=== PATIENT | male | born 1950 | race Caucasian/White ===

== ENCOUNTER 2017-03-30 11:28 | Inpatient (IN) | payer OTHER ==
[~2017-03-30] VITALS: Ht 157.5 cm; Wt 57.6 kg
[2017-03-30] VITALS (13 sets, daily range): BP systolic 146–200; BP diastolic 66–99
[~2017-03-30 11:28] MED LIST: PT DOES NOT KNOW MED; [UNRECOGNIZED DRUG - REMARK]
--- NOTE | 2017-03-30 12:15 | NUR ---
PT PRESENTS TO ER W/C/O YEU LE EDEMA. PT STATES HE WENT ON VACATION LAST MONTH AND LOST HIS HTN AND DM MEDS AND HAS NOT TAKEN THEM IN 3 WEEKS. HX HTN, DM, ESRD. PT STATES HE IS NOT ON DIALYSIS. DENIES N/V/D; SKIN IS PINK/WARM/DRY; AAOX4 WITH EVEN AND STEADY GAIT; LUNGS CLEAR BL; HR EVEN AND REGULAR; PT DENIES ANY FEVER, CP, SOB, OR COUGH AT THIS TIME; PATIENT STATES PAIN OF 0/10 AT THIS TIME; VSS; PATIENT POSITIONED FOR COMFORT; HOB ELEVATED; BEDRAILS UP X2; BED DOWN. ER MD MADE AWARE OF PT STATUS.
[2017-03-30] MEDS ORDERED: VANCOMYCIN PER PHARMACY MC PRN ×2 (12:20→14:10)
[2017-03-30] MEDS ORDERED: VANCOMYCIN 1GM/DEXT 5% PREMIX 200 ML IV ONE (12:20)
--- NOTE | 2017-03-30 12:20 | NUR ---
BILAT UPPER AND LOWER EXTREMITIES RESTRAINT WERE APPLIED;PT IS AGGRESSIVE;
[2017-03-30 12:40] LABS: MEAN CORPUSCULAR HEMOGLOBIN 29 pg (27-31); MEAN CORPUSCULAR HGB CONC 33 g/dL (33-37); MEAN CORPUSCULAR VOLUME 87 fL (80-94); PLATELET COUNT (AUTO) 458 K/uL (140-450); RED BLOOD CELL COUNT(AUTO) 2.31 MIL/uL (4.20-6.10); RED CELL DISTRIBUTION WIDTH 12.4 % (11.6-13.7); WHITE BLOOD COUNT (AUTO) 14.1 K/uL (4.8-10.8)
[2017-03-30 12:47] LABS: HEMATOCRIT 20.1 % (36-52); HEMOGLOBIN 6.7 g/dL (12.0-18.0)
[2017-03-30 12:52] LABS: EOSINOPHILS % (MANUAL) 2 % (0-4); LYMPHOCYTES % (MANUAL) 10 % (20-46); MONOCYTES % (MANUAL) 4 % (5-12)
[2017-03-30 12:53] LABS: CARBON DIOXIDE 19.7 mmol/L (21-32); POTASSIUM 5.7 mmol/L (3.5-5.1); TOTAL BILIRUBIN 0.2 mg/dL (0.0-1.0)
[2017-03-30 12:56] LABS: PROTHROMBIN TIME 11.2 secs (10.8-13.4)
[2017-03-30 13:14] LABS: CREATININE 5.4 mg/dL (0.7-1.3)
--- NOTE | 2017-03-30 13:15 | NUR ---
PT RESTING ON BED;SAFETY MEASURES DONE;ONE ON MONITORING DONE;ALL MONITORS IN PLACED;
[2017-03-30] MEDS ORDERED: SODIUM POLYSTYRENE 15 GM/60 ML UDBTL PO ONE (13:20)
[2017-03-30] MEDS ORDERED: MORPHINE SULFATE 2 MG/ML SYR IVP PRN (13:50)
[2017-03-30] MEDS ORDERED: ONDANSETRON 4 MG/2 ML VIAL IVP PRN (13:50)
[2017-03-30] MEDS ORDERED: LORazepam 2 MG/ML VIAL IVP PRN (13:50)
--- NOTE | 2017-03-30 14:22 | NUR ---
Patient will be admitted to care of DR VERDUGO. Admited to M/S. Will go to room 121A. Belongings list completed. Report to LEW HERNADEZ.
--- NOTE | 2017-03-30 14:30 | NUR ---
1430: END TIME FOR VANOMYCIN/DEXTROSE, PT ADMITTED
--- NOTE | 2017-03-30 14:45 | NUR ---
PT ARRIVED ON UNIT IN [facility].
--- NOTE | 2017-03-30 15:44 | NUR ---
WOUND CARE EVALUATION NOTES: REASON FOR EVALUATION: BLE WOUNDS COMPLETE SKIN ASSESSMENT DONE ON THIS 66 Y/O MALE PATIENT FROM HOME TO [facility], WITH INITIAL DIAGNOSIS OF BLE EDEMA. PAST MEDICAL HISTORY INCLUDE DM, DIABETIC NEUROPATHY, HTN AND ESRD. ALL ABOVE INFORMATION WAS OBTAINED FROM PT AND THE ADMISSION H&P. LABS ARE WBC 14.1, H/H 6.7/20.1, GLUCOSE 225, ALBUMIN 2.0 CURRENT MEDS INCLUDE VANCOMYCIN, ENOXAPARIN, MORPHINE SULFATE AND ATIVAN. PATIENT IS AWAKE, ALERT, AND ABLE TO FOLLOW COMMANDS. SKIN WARM TO TOUCH WNL, SHORT FUNGAL LIKE TOENAILS, EDEMA TO RIGHT FOOT,NO HAIR GROWTH AND BILATERAL PEDAL PULSES PRESENT.PLAN OF CARE DISCUSSED WITH PT AND PRIMARY NURSE. PT ABLE TO VERBALIZE UNDERSTANDING. INTEGUMENTARY: BLE- DRYNESS, MULTIPLES OLD HEALED SCARS WITH SKIN INTACT LEFT GREAT TOE PLANTAR UN-STAGEABLE DIABETIC ULCER, HARD BROWN ESCHAR TISSUE 5X6CM, DEPTH UTD PW PALE RIGHT FOOT ERYTHEMA, WARM TO TOUCH DRY THIN SKIN RIGHT 5TH METATARSAL MEDIAL SIDE SMALL LACERATION UNABLE TO MEASURE DUE TO LOCATION RECOMMENDATIONS: -SUPERVISOR CORDUROY CUTTING CONSULT, POSSIBLE DEBRIDEMENT TO LEFT PLANTAR GREAT TOE -VENOUS DOPPLER U/S -CLEANSE LEFT PLANTAR GREAT TOE WOUND WITH NS, PAT DRY, PAINT WITH BETADINE SOLUTION QD AND PIPE LINE WALKER -CLEAN RIGHT 5TH METATARSAL WITH NS. PAT DRY, PAINT WITH BETADINE SOLUTION QD AND ALEX -APPLY HYDRAGUARD TO BLE QD AND PIPE LINE WALKER -TURN AND REPOSITION PATIENT Q2H -ASSESS AND MONITOR SKIN CONDITION DURING POSITION CHANGE, PLEASE PAY ATTENTION TO BLE AND HEELS -OFFLOAD BILATERAL HEELS BY PLACING PILLOWS UNDER CALVES AT ALL TIMES, UNLESS OTHERWISE CONTRAINDICATED -PRESSURE REDISTRIBUTION SURFACE THERAPY -KEEP SKIN CLEAN AND DRY AT ALL TIMES. -RD CONSULT RECOMMENDATIONS DISCUSSED WITH PRIMARY RN WILL FOLLOW UP PATIENT Q 7 -10 DAYS AND PRN. PLEASE CONTACT WOUND CARE NURSE FOR ANY CONCERNS AND CHANGES IN WOUND CONDITION
--- NOTE | 2017-03-30 16:00 | NUR ---
RECEIVED PT REPORT FROM RICKY CHARGE NURSE. PT IS AAOX4 AND SHOWS NO S/S OF ACUTE DISTRESS ON ROOM AIR. IV NOTED ON THE R FA 20 G SL. LBM 03/30/17 AM. PT DENIES PAIN. ON MEDICAL SURGICAL. PT HAS NOTED BILATERAL LOWER EXTREMITY EDEMA, RIGHT FOOT ERYTHEMA/DISCOLORATION, AND LEFT FOOT TOE PLANTAR WITH BROWN DISCOLORATION. PT AND FAMILY MEMBER WERE EXPLAINED POC FOR TODAY, THEY BOTH VERBALIZED UNDERSTANDING. PT FALL RISK PROTOCOL WAS INITIATED. PT HAS CANE AT BEDSIDE. THE BED IS LOWERED WITH CALL LIGHT WITHIN REACH.
--- NOTE | 2017-03-30 16:10 | NUR ---
PAGED DR VERDUGO REGARDING HIGH BP CHARTED. WILL AWAIT CALL BACK.
--- NOTE | 2017-03-30 16:30 | NUR ---
PAGED DR VERDUGO REGARDING HIGH BP 197/91. WILL AWAIT CALL BACK.
[2017-03-30] MEDS ORDERED: DEXTROSE 50% 50 ML SYR IVP PRN (16:45)
[2017-03-30] MEDS ORDERED: MECLIZINE 25 MG TAB PO PRN (16:45)
[2017-03-30] MEDS ORDERED: traMADol 50 MG TAB PO PRN (16:45)
--- NOTE | 2017-03-30 16:55 | NUR ---
PAGED DR VERDUGO REGARDING HIGH BP 191/90. WILL AWAIT CALL BACK.
--- NOTE | 2017-03-30 17:00 | NUR ---
DR VERDUGO ON UNIT SEEING PT. MADE AWARE OF BP.
[2017-03-30] MEDS ORDERED: FUROSEMIDE 100 MG/10 ML VIAL IV SCH (17:30)
--- NOTE | 2017-03-30 18:00 | NUR ---
DR VERDUGO ORDERED LASIX 60 MG IVP FOR BP. BEFORE ADMINISTERING BP IS 200/95 HR 71 AND O2 SAT% 100.
--- NOTE | 2017-03-30 18:20 | NUR ---
PT BP IS 182/99 HR 73. PT DENIES CHEST PAIN AND SOB. WILL CONTINUE TO MONITOR.
[2017-03-30] MEDS ORDERED: hydrALAZINE 20 MG/ML VIAL IVP PRN (18:25)
--- NOTE | 2017-03-30 19:15 | NUR ---
PT BP IS 180/81 HR 73. PT IS ASYMPTOMATIC, DENIES CHEST PAIN AND SOB. PT REPORT WAS GIVEN AT BEDSIDE TO NIGHT NURSE. CHANDAN HACKETT AWARE OF HIGH BP AND STATES SHE WILL PAGE DR VERDUGO ABOUT BP STILL CONTINUOS TO BE HIGH AFTER GIVING LASIX 60 MG IVP AT 1750 AND HYDRALAZINE 10 MG IVP AT 1840. BP HAS BEEN CHECKED EVERY 15-20 MIN. RICKY HACKETT IS AWARE BLOOD TRANSFUSION WAS NOT GIVEN DUE TO HIGH BLOOD PRESSURE. ENDORSED PT IN STABLE CONDITION TO CHANDAN HACKETT.
[2017-03-30 19:19] LABS: CHOL/HDL RATIO 4.3 (1-4.5)
--- NOTE | 2017-03-30 19:20 | NUR ---
RECEIVED REPORT FROM DAY SHIFT RN, PATIENT RESTING IN BED, NO S/S OF ACUTE DISTRESS NOTED, RESPIRATION EVEN AND UNLABORED, NOTED BP AT THIS TIME IS 174/78, HR 71, DAY SHIFT NURSE STATED PATIENT RECEIVED LASIX 60MG AT 1757 AND HYDRALAZINE AT 1840, CHARGE NURSE IS AWARE OF PATIENT'S BP AND STATED TO CONTINUE MONITOR THE BP AND IF SBP IS STILL OVER 170 AFTER AN HOUR, THEN PAGE DR. VERDUGO. PATIENT IS AWAKE ALERT ORIENTED X4, DENIES PAIN AT THIS TIME. PLAN OF CARE DISCUSSED, PATIENT VERBALIZED UNDERSTANDING, CALL LIGHT WITHIN REACH, SAFETY MEASURE ENSURED ,WILL CONTINUE TO MONITOR
--- NOTE | 2017-03-30 19:58 | NUR ---
BP 168/88, HR 70, NO S/S OF DISTRESS, PATIENT DENIES PAIN. WILL CONTINUE TO MONITOR.
[2017-03-30] MEDS: BLOOD GLUCOSE MONITORING 1 DEV DEV FS SCH (20:17)
[2017-03-30] MEDS: SIMVASTATIN 40 MG TAB PO SCH (20:21)
[2017-03-30] MEDS: INSULIN LISPRO SLIDING SCALE 100 UNITS/ML VIAL SUBQ PRN (20:24)
[2017-03-30] MEDS ORDERED: hydrOXYzine HCL 10 MG TAB PO SCH (21:00)
[2017-03-30] MEDS ORDERED: METOPROLOL 25 MG TAB PO SCH (21:02)
--- NOTE | 2017-03-30 21:10 | NUR ---
PAGED DR VERDUGO, DR TURK EMPLOYEE'S REPRESENTATIVE. INFORMED DR. TURK PATIENT'S BP 182/91, HR 71 AT 2039, RECEIVED ORDER OF LOPRESSOR 25MG PO BID, START THE FIRST DOSE TONIGHT. HYDRALAZINE 20MG PRN SBP ABOVE 160, IVP, Q8H, AND GIVE ADDITIONAL 10MG IVP IF SBP ABOVE 160 FOR NOW. ORDER READ BACK, DR. TURK CONFIRMED.
--- NOTE | 2017-03-30 21:20 | NUR ---
PAGED DR. HERNANDEZ, CALLED BACK AT 2104, INFORMED DR. HERNANDEZ THAT PATIENT'S BP 182/91 AND HR 71 AT 2039, IF I SHOULD GIVE THE 2 UNITS OF PRBC ORDERED, DR. HERNANDEZ STATED," I AM ON MY WAY TO THE HOSPITAL, I WILL CHECK THE PATIENT, WAIT UNTIL I GET THERE."
--- NOTE | 2017-03-30 21:31 | NUR ---
DR. HERNANDEZ IS HERE AND EXAMINED THE PATIENT.
--- NOTE | 2017-03-30 21:53 | NUR ---
DR. HERNANDEZ SAID," OKAY TO GIVE 2 UNITS OF PRBC, AND GIVE CLONIDINE 0.1MG PO ONCE FOR ELEVATED BLOOD PRESSURE."
[2017-03-30] MEDS ORDERED: cloNIDine 0.1 MG TAB PO SCH (21:55)
--- NOTE | 2017-03-30 22:03 | NUR ---
BP 168/84, HR 70, CLONIDINE 0.1MG PO GIVEN, WILL CONTINUE TO MONITOR.
--- NOTE | 2017-03-30 22:55 | NUR ---
T 97.9, BP 160/75, HR 69, RR 17, DENIES PAIN
--- NOTE | 2017-03-30 23:10 | NUR ---
1ST UNIT OF PRBC START, WILL CONTINUE TO MONITOR VITAL SIGNS PER HOSPITAL PROTOCOL, AND EDUCATED PATIENT TO CALL NURSE IF HE FEELS SOB, FLANK PAIN, OR CHILL. PATIENT VERBALIZED UNDERSTANDING, WILL CONTINUE TO MONITOR.
--- NOTE | 2017-03-30 23:53 | NUR ---
JUSTIN EXAMINED PATIENT AT THE BEDSIDE.
[2017-03-31] VITALS (9 sets, daily range): BP systolic 133–177; BP diastolic 64–93
--- NOTE | 2017-03-31 02:57 | NUR ---
1ST UNIT OF PRBC FINISHED AT 2039, VITAL SIGNS T 98.2 BP 165/71, HR 63 RR 18 O2SAT 98%, PATIENT CHANNING PAIN. WILL GIVE HYDRALAZINE 20MG PRN IVP FOR SBP ABOVE 160 ORDERED. Addendum: 03/31/17 at 0576 by Virgilio Akbar RN 1ST UNIT OF PRBC FINISHED AT 239
[2017-03-31] MEDS: hydrALAZINE 20 MG/ML VIAL IVP PRN (03:01)
--- NOTE | 2017-03-31 03:25 | NUR ---
T 98.3, BP 129/60, HR 65, RR 17, O2SAT 98%, DENIES PAIN.
--- NOTE | 2017-03-31 03:45 | NUR ---
STARTED THE SECOND UNIT OF PRBC AT 0340, WILL CONTINUE MONITOR VITAL SIGNS PER HOSPITAL PROTOCOL. EDUCATED PATIENT TO INFORM NURSE IF HE FEELS SOB, FLANK PAIN, OR CHILL. PATIENT VERBALIZED UNDERSTANDING.
[2017-03-31] MEDS: cloNIDine 0.1 MG TAB PO SCH ×3 (05:30→20:34)
[2017-03-31] MEDS: BLOOD GLUCOSE MONITORING 1 DEV DEV FS SCH ×4 (06:36→20:42)
[2017-03-31] MEDS: INSULIN LISPRO SLIDING SCALE 100 UNITS/ML VIAL SUBQ PRN ×3 (06:37→20:40)
--- NOTE | 2017-03-31 06:59 | NUR ---
THE SECOND UNIT OF PRBC FINISHED AT 0650, VITAL SIGNS T 98.2, BP 154/73, HR 64, RR 19, O2SAT 98%, DENIES PAIN.
--- NOTE | 2017-03-31 07:15 | NUR ---
ENDORSED PLAN OF CARE TO DAY RN. PATIENT IS IN STABLE CONDITION. NO S/S OF DISTRESS, RESPIRATION EVEN AND UNLABORED.
--- NOTE | 2017-03-31 07:20 | NUR ---
RECEIVED REPORT FROM AIRCRAFT ARMORER NURSE, PT IS RESTING IN BED A/OX4, AMBULATES WITH ASSIST, IV IS ON THE RIGHT FA, PATENT, INTACT, FLUSHING WELL, PATIENT'S HAS BILATERAL +1 PITTING EDEMA, LEFT BIG TOE SCAB AT THE BOTTOM PLANTAR SIDE, NO S/S OF RESPIRATORY DISTRESS OR DISCOMFORT NOTED, DISCUSSED PLAN OF CARE WITH PT, PT VERBALIZED UNDERSTANDING, SAFETY/FALL PRECAUTIONS ARE IN PLACE, CALL LIGHT WITHIN REACH, WILL CONTINUE TO MONITOR.
[2017-03-31] MEDS: FERROUS SULFATE 325 MG TABEC PO SCH (08:00)
[2017-03-31] MEDS: METOPROLOL 25 MG TAB PO SCH ×2 (08:52→20:35)
[2017-03-31] MEDS: amLODIPine 5 MG TAB PO SCH (08:52)
[2017-03-31] MEDS ORDERED: ENOXAPARIN 30 MG/0.3 ML SYR SUBQ SCH (09:00)
[2017-03-31] MEDS ORDERED: GLIMEPIRIDE 2 MG TAB PO SCH (09:00)
[2017-03-31 09:36] LABS: HEMATOCRIT 24.2 % (36-52); MEAN CORPUSCULAR HEMOGLOBIN 28 pg (27-31); MEAN CORPUSCULAR HGB CONC 33 g/dL (33-37); MEAN CORPUSCULAR VOLUME 86 fL (80-94); PLATELET COUNT (AUTO) 348 K/uL (140-450); RED BLOOD CELL COUNT(AUTO) 2.82 MIL/uL (4.20-6.10); WHITE BLOOD COUNT (AUTO) 11.5 K/uL (4.8-10.8)
[2017-03-31 09:45] LABS: ALBUMIN 1.5 g/dL (3.4-5.0); ANION GAP 11.8 (8-16); CARBON DIOXIDE 22.1 mmol/L (21-32); POTASSIUM 4.9 mmol/L (3.5-5.1); TOTAL BILIRUBIN 0.6 mg/dL (0.0-1.0)
[2017-03-31 09:48] LABS: CREATININE 5.1 mg/dL (0.7-1.3)
[2017-03-31 09:55] LABS: EOSINOPHILS % (MANUAL) 3 % (0-4); LYMPHOCYTES % (MANUAL) 4 % (20-46); MONOCYTES % (MANUAL) 1 % (5-12)
[2017-03-31 10:17] LABS: PHOSPHORUS 5.2 mg/dL (2.5-4.9); THYROID STIMULATING HORMONE 1.46 uIU/mL (0.34-3.74)
[2017-03-31] MEDS ORDERED: PROPOFOL 200 MG/20 ML VIAL IV ONE (11:48)
--- NOTE | 2017-03-31 11:50 | NUR ---
PATIENT OFF UNIT AT THIS TIME AND TAKEN TO OR FOR PROCEDURE.
[2017-03-31] MEDS ORDERED: BUPIVACAINE-MPF 0.5% 30 ML VIAL INJ ONE (12:06)
[2017-03-31] MEDS ORDERED: fentaNYL 0.05 MG/ML VIAL ONE (12:10)
[2017-03-31] MEDS ORDERED: ONDANSETRON 4 MG/2 ML VIAL IVP PRN (12:10)
[2017-03-31] MEDS ORDERED: HYDROmorphone 1 MG/ML AMP IVP PRN (12:10)
--- NOTE | 2017-03-31 13:30 | NUR ---
PATIENT RETURNED TO UNIT VIA GURNEY, PT IS A/OX4, PT HAS BILATERAL LOWER LEGS WRAPPED WITH DRESSING, PATIENT'S BP:152/70, HR:57, R:17 O2:97%, T:97.5, PAIN:0/10. PATIENT'S IS AT BEDSIDE, CALL LIGHT IS WITHIN REACH, WILL CONTINUE TO MONITOR.
--- NOTE | 2017-03-31 13:59 | NUR ---
FAXED INITIAL REVIEW TO [facility] [phone] PHONE [facility] [phone] [id number]
--- NOTE | 2017-03-31 15:14 | NUR ---
PER CHARGE NURSE, SHE SPOKE TO DR. ANDERSON AND TOLD HER TO GO AHEAD AND CANCEL THE BONE SCAN SINCE THE PATIENT HAD I & D OF BILATERAL FEET AND AMPUTATION WAS DONE OF THE 5TH TOE.
--- NOTE | 2017-03-31 16:44 | NUR ---
PT SLEEPING IN BED AT THIS TIME, CALL LIGHT IS WITHIN REACH.
--- NOTE | 2017-03-31 19:10 | NUR ---
ENDORSED PT TO BOILERMAKER ASSEMBLY AND ERECTION NURSE FOR CONTINUITY OF CARE, PT STABLE AT THIS TIME.
--- NOTE | 2017-03-31 19:15 | NUR ---
RECEIVED PT FROM MARTHA HACKETT PT IS AAOX4 AMBULATES WITH VEHICLE SAFETY INSPECTOR AND A CANE S/P BILATERAL DEBRIDEMENT ON BOTH FEET, PT ACCORDING TO DAY SHIFT NURSE PT REFUSED DIALYSIS DR HERNANDEZ IS HERE AND TALK TO THE PT.
[2017-03-31] MEDS: ACETAMINOPHEN 325 MG TAB PO PRN (20:32)
--- NOTE | 2017-03-31 20:32 | NUR ---
TYLENOL IS GIVEN FOR FEVER 102.8
[2017-03-31] MEDS: SIMVASTATIN 40 MG TAB PO SCH (20:33)
--- NOTE | 2017-03-31 21:30 | NUR ---
BLOOD SUGAR GABRIELLE 180 WAS COVERAGE WITH 2 UNITS HUMALOG SUB Q FOLLOW PROTOCOL
--- NOTE | 2017-03-31 22:00 | NUR ---
PT IS ASSISTED TO THE RESTROOM VOIDING WELL NOT DISTRESS NOTED
[2017-04-01] VITALS: BP 142/79
--- NOTE | 2017-04-01 00:22 | NUR ---
SLEEPING WELL NOT FEVER, NOT PAIN SLEEPING WELL AT THIS TIME
--- NOTE | 2017-04-01 04:00 | NUR ---
SPONGE BATH GIVEN LINEN CHANGED REPOSITIONED Q2H
[2017-04-01] MEDS: cloNIDine 0.1 MG TAB PO SCH ×3 (04:45→21:06)
[2017-04-01 06:17] LABS: HEMATOCRIT 23.4 % (36-52); MEAN CORPUSCULAR HEMOGLOBIN 29 pg (27-31); MEAN CORPUSCULAR HGB CONC 34 g/dL (33-37); MEAN CORPUSCULAR VOLUME 85 fL (80-94); PLATELET COUNT (AUTO) 326 K/uL (140-450); RED BLOOD CELL COUNT(AUTO) 2.75 MIL/uL (4.20-6.10); RED CELL DISTRIBUTION WIDTH 12.8 % (11.6-13.7); WHITE BLOOD COUNT (AUTO) 16.5 K/uL (4.8-10.8)
[2017-04-01 06:46] LABS: ALBUMIN 1.5 g/dL (3.4-5.0); ANION GAP 14.2 (8-16); CARBON DIOXIDE 20.6 mmol/L (21-32); POTASSIUM 4.8 mmol/L (3.5-5.1); TOTAL BILIRUBIN 0.3 mg/dL (0.0-1.0)
[2017-04-01 06:48] LABS: CREATININE 5.3 mg/dL (0.7-1.3)
[2017-04-01 06:54] LABS: LYMPHOCYTES % (MANUAL) 6 % (20-46); MONOCYTES % (MANUAL) 4 % (5-12)
--- NOTE | 2017-04-01 07:30 | NUR ---
PT IS ENDORSED TO [facility] FOR CONTINUITY OF CARE
[2017-04-01] MEDS: BLOOD GLUCOSE MONITORING 1 DEV DEV FS SCH ×4 (07:32→21:01)
--- NOTE | 2017-04-01 07:35 | NUR ---
DR VERDUGO IS HERE AND SEE THE PT
--- NOTE | 2017-04-01 07:36 | NUR ---
DR PAUL FARIA WAS PAGE AND ENDORSED TO CHARLES RN
--- NOTE | 2017-04-01 07:37 | NUR ---
REPORT RECEIVED FROM SNORKELLING INSTRUCTOR NURSE, PT AAOX4, RESP EVEN UNLABORED ON RA, SKIN WARM DRY COLOR WNL, PT DENIES PAIN OR DISCOMFORT, DRESSING AT BILAT FOOT, SMALL DRY BLOOD TO 2ND TOE AREA BUT OTHERWISE CDI, PLAN OF CARE REVIEWED, PT VERBALIZED FULL UNDERSTANDING, CALL HARDING WITHIN REACH, SIDE RAILS UP, BED LOCKED IN LOW POSITION, WILL CONTINUE TO MONITOR.
--- NOTE | 2017-04-01 07:54 | NUR ---
PATIENT HAS BEEN SCREENED AND CATEGORIZED MODERATE NUTRITION RISK. PATIENT WILL BE SEEN WITHIN 3-5 DAYS OF ADMISSION. 04/02/17-04/04/[address]
[2017-04-01 08:00] VITALS: BP 139/74
[2017-04-01] MEDS: METOPROLOL 25 MG TAB PO SCH ×2 (08:41→21:00)
[2017-04-01] MEDS: FERROUS SULFATE 325 MG TABEC PO SCH (08:41)
[2017-04-01] MEDS: amLODIPine 5 MG TAB PO SCH (08:47)
--- NOTE | 2017-04-01 08:54 | NUR ---
DR FARIA CALLED BACK, DR FARIA NOTIFIED THAT PATIENT CHANGED HIS MIND AND WANTS TO GET DIALYSIS DONE, DIALYSIS CATH TO BE PLACED LATER TODAY BY DR FARIA, WILL KEEP PT NPO. PT MADE AWARE OF PLAN. NO QUESTIONS OR CONCERNS AT THIS TIME.
--- NOTE | 2017-04-01 08:56 | NUR ---
PT UP OUT OF BED WITH SLIGHT ASSIST, AMBULATES TO BATHROOM WITH CANE, DIANA WELL.
[2017-04-01] MEDS ORDERED: VANCOMYCIN 500 MG in DEXTROSE 5% 100 ML IV SCH ×2 (09:00→21:00)
[2017-04-01] MEDS: INSULIN LISPRO SLIDING SCALE 100 UNITS/ML VIAL SUBQ PRN ×3 (11:48→21:02)
--- NOTE | 2017-04-01 11:51 | NUR ---
CM NOTE CONCURRENT REVIEW FAXED TO [facility] / FAX# [phone], ATTN: ORESTES #[phone] [id number]
--- NOTE | 2017-04-01 12:55 | NUR ---
CONSENT FOR DIALYSIS CATH PLACEMENT SIGNED BY PT, PT DECLINED OFFER FOR TELEPHONE NAILING MACHINE OPERATOR.
--- NOTE | 2017-04-01 13:00 | NUR ---
PER DR FARIA, SUPPLIES FOR DIALYSIS CATH PLACEMENT AT BEDSIDE, MED RESIDENT AT BEDSIDE, US TECH AT BEDSIDE.
--- NOTE | 2017-04-01 13:50 | NUR ---
CATH PLACEMENT COMPLETED, XRAY AT BEDSIDE, DRESSING APPLIED, PT DIANA WELL.
[2017-04-01 16:00] VITALS: BP 132/70
--- NOTE | 2017-04-01 16:30 | NUR ---
DIALYSIS NURSE AT BEDSIDE, CONSENT FOR DIALYSIS OBTAINED, PT DECLINED OFFER FOR TELEPHONE PETROLEUM REFINERY LABORER.
--- NOTE | 2017-04-01 17:35 | NUR ---
DR AREVALO (CUSTOMER SERVICE SALES CONSULTANT) AT BEDSIDE, NO DRESSING CHANGE BY NURSING NEEDED PER DR AREVALO.
--- NOTE | 2017-04-01 19:26 | NUR ---
REPORT GIVEN TO CLINICAL SPECIALIST NURSE NICOLAS RN, PT IN STABLE CONDITION, DIALYSIS CONTINUES.
--- NOTE | 2017-04-01 19:27 | NUR ---
RECEIVED PT FROM CHARLES RN PT IS AAOX4 AMBULATE WITH PARTS INTERPRETER ON DIALYSIS AT THIS TIME ON RT IJ JACIEL CATH REMAIN STABLE AT THIS TIME INITIAL ASSESSMENT DONE
--- NOTE | 2017-04-01 19:40 | NUR ---
DIALYSIS DONE AT 1940 PM AND 2 LTS OUT PT REMAIN STABLE AT THIS TIME
[2017-04-01 20:00] VITALS: BP 141/69
[2017-04-01] MEDS: SIMVASTATIN 40 MG TAB PO SCH (21:06)
--- NOTE | 2017-04-01 22:00 | NUR ---
AFTER KLPAIN MEDIC GIVEN PT SLEEP QUIET NOT DISTRESS NOTED
[2017-04-02] VITALS: BP 130/74
--- NOTE | 2017-04-02 01:00 | NUR ---
PT SLEEPING WELL NOT DISTRESS NOTED
--- NOTE | 2017-04-02 04:00 | NUR ---
SPONGE BATH GIVEN , LINEN CHANGED REPOSITIONED REMAIN STABLE DENIES ANY PAIN
[2017-04-02 04:47] VITALS: BP 142/72
[2017-04-02] MEDS: cloNIDine 0.1 MG TAB PO SCH ×3 (04:51→20:08)
[2017-04-02] MEDS: INSULIN LISPRO SLIDING SCALE 100 UNITS/ML VIAL SUBQ PRN ×3 (06:05→20:17)
[2017-04-02] MEDS: BLOOD GLUCOSE MONITORING 1 DEV DEV FS SCH ×4 (06:06→20:11)
--- NOTE | 2017-04-02 06:19 | NUR ---
PT REMAIN STABLE BLOOD SUGAR TEST 207 COVERAGE PROTOCOL
--- NOTE | 2017-04-02 07:25 | NUR ---
RECEIVED REPORT FROM RELIABILITY TECHNICIANS RN. PATIENT IS AAOX4, RESPIRATORY EVEN AND UNLABORED ON ROOM AIR. PATIENT HAS RIGHT IJ JACIEL CATH, DRESSING IS APPLIED, CLEAN DRY AND INTACT. HAS IV ON RIGHT FOREARM 20G ON SALINE LOCK. NO SIGNS AND SYMPTOMS OF ACUTE DISTRESS NOTED AT THIS TIME. BANDAGES ON BILATERAL FEET. BED IN LOWEST POSITION, BED ALARM ON, SIDERAILS UP X2, FALL PRECAUTIONS IN PLACE, CALL LIGHT PLACED WITHIN REACH. WILL CONTINUE TO MONITOR.
[2017-04-02 08:00] VITALS: BP 140/66
--- NOTE | 2017-04-02 08:08 | NUR ---
FAXED CONCURRENT REVIEW TO [place] [phone] PHONE [phone] FAXED REVIEW TO [facility] [phone] PHONE [place] [phone] NOVEMBER [phone]
[2017-04-02 08:28] LABS: BASOPHILS # (AUTO) 0.1 K/uL (0.00-0.22); BASOPHILS % (AUTO) 0.5 % (0.0-2.0); EOSINOPHILS # (AUTO) 0.2 K/uL (0-0.4); EOSINOPHILS % (AUTO) 1.7 % (0.0-4.0); HEMATOCRIT 24.3 % (36-52); HEMOGLOBIN 7.8 g/dL (12.0-18.0); LYMPHOCYTES # (AUTO) 1.3 K/uL (2.0-11.5); LYMPHOCYTES % (AUTO) 9.1 % (20.5-51.1); MEAN CORPUSCULAR HEMOGLOBIN 28 pg (27-31); MEAN CORPUSCULAR HGB CONC 32 g/dL (33-37); MEAN CORPUSCULAR VOLUME 87 fL (80-94); MONOCYTES # (AUTO) 0.9 K/uL (0.8-1.0); MONOCYTES % (AUTO) 6.5 % (1.7-9.3); NEUTROPHILS % (AUTO) 82.2 % (42.2-75.2); PLATELET COUNT (AUTO) 301 K/uL (140-450); RED BLOOD CELL COUNT(AUTO) 2.78 MIL/uL (4.20-6.10); RED CELL DISTRIBUTION WIDTH 13.2 % (11.6-13.7); WHITE BLOOD COUNT (AUTO) 14.5 K/uL (4.8-10.8)
[2017-04-02 08:36] LABS: ANION GAP 7.5 (8-16); CREATININE 3.9 mg/dL (0.7-1.3); POTASSIUM 3.5 mmol/L (3.5-5.1)
[2017-04-02 09:07] LABS: HEPATITIS B CORE AB TOTAL Negative (Negative); HEPATITIS B SURFACE AB Reactive (.); HEPATITIS B SURFACE ANTIGEN Negative (Negative)
[2017-04-02] MEDS: METOPROLOL 25 MG TAB PO SCH ×2 (09:10→20:09)
[2017-04-02] MEDS: FERROUS SULFATE 325 MG TABEC PO SCH (09:10)
[2017-04-02] MEDS: amLODIPine 5 MG TAB PO SCH (09:11)
--- NOTE | 2017-04-02 09:16 | NUR ---
CALLED DARLIN FROM [facility]. SHE SAID SHE ALREADY SPOKE WITH DR. AMATO. I FAXED HER THE INFORMATION SHE NEEDED AND INFORMED HER THAT THE HEP PANEL IS PENDING AND THAT HE HAD A JACIEL CATH INSERTED YESTERDAY. SHE SAID SHE WOULD NEED A TUNNELING CATHETER PLACED. I CALLED ORESTES FROM [facility] AND INFORMED HER OF THE OUT PATIENT DIALYSIS. I ALSO INFORMED HER THAT HE WOULD NEED TRANSPORT. I TOLD HER I ALREADY SPOKE WITH DARLIN FROM [facility]. ORESTES WILL CALL ME BACK.
--- NOTE | 2017-04-02 10:16 | NUR ---
SPOKE WITH DR HERNANDEZ, HE ASKED IF I COULD SPEAK WITH DR FARIA ABOUT HAVING HIM PLACE A TUNNEL CATHETER DUE TO DAVITA WON'T ACCEPT HIM WITH JACIEL CATH. WILL FOLLOW THROUGH.
--- NOTE | 2017-04-02 10:55 | NUR ---
SPOKE WITH DR FARIA ABOUT NEED FOR TUNNELED CATHETER.
--- NOTE | 2017-04-02 11:30 | NUR ---
PATIENTS BLOOD SUGAR IS 323, WILL COVER WITH INSULIN. NO SIGNS AND SYMPTOMS OF ACUTE DISTRESS NOTED AT THIS TIME.
[2017-04-02 12:21] LABS: BASOPHILS # (AUTO) 0.1 K/uL (0.00-0.22); BASOPHILS % (AUTO) 0.4 % (0.0-2.0); EOSINOPHILS # (AUTO) 0.3 K/uL (0-0.4); EOSINOPHILS % (AUTO) 1.9 % (0.0-4.0); HEMATOCRIT 24.8 % (36-52); HEMOGLOBIN 8.1 g/dL (12.0-18.0); LYMPHOCYTES # (AUTO) 1.4 K/uL (2.0-11.5); LYMPHOCYTES % (AUTO) 9.6 % (20.5-51.1); MEAN CORPUSCULAR HEMOGLOBIN 28 pg (27-31); MEAN CORPUSCULAR HGB CONC 33 g/dL (33-37); MEAN CORPUSCULAR VOLUME 86 fL (80-94); MONOCYTES # (AUTO) 0.9 K/uL (0.8-1.0); MONOCYTES % (AUTO) 6.2 % (1.7-9.3); NEUTROPHILS # (AUTO) 11.4 K/uL (1.8-7.7); NEUTROPHILS % (AUTO) 81.9 % (42.2-75.2); PLATELET COUNT (AUTO) 331 K/uL (140-450); RED BLOOD CELL COUNT(AUTO) 2.87 MIL/uL (4.20-6.10); RED CELL DISTRIBUTION WIDTH 12.8 % (11.6-13.7); WHITE BLOOD COUNT (AUTO) 14.1 K/uL (4.8-10.8)
--- NOTE | 2017-04-02 15:50 | NUR ---
ENDORSED PATIENT TO FRANCISCO JAVIER RN FOR CONTINUITY OF CARE. PATIENT IN STABLE CONDITION, AT BEDSIDE.
--- NOTE | 2017-04-02 15:51 | NUR ---
RECEIVED REPORT OF PT FROM LUCY HACKETT AT BEDSIDE. PT IS IN STABLE CONDITION. PT HAS IV ON R F/A 20G SL AND R IJ JACIEL CATH INTACT. PT IS S/P 5TH METATARSAL R FOOT AMPUTATION AND BL LE DEBRIDEMENT, DSG CLEAN DRY AND INTACT. PT IN STABLE CONDITION. AT BEDSIDE. CALL LIGHT WITHIN REACH. WILL CONTINUE TO MONITOR.
[2017-04-02 16:00] VITALS: BP 135/70
[2017-04-02] MEDS: CALCIUM ACETATE 667 MG TAB PO SCH (16:21)
--- NOTE | 2017-04-02 17:49 | NUR ---
PT EATING BY BEDSIDE, NO DISTRESS NOTED, CALL LIGHT WITHIN REACH, WILL CONTINUE TO MONITOR.
--- NOTE | 2017-04-02 19:14 | NUR ---
ENDORSE PT TO NIGHT NURSE BY BEDSIDE, PT STABLE, NO DISTRESS NOTED, FAMILY BY BEDSIDE, CALL LIGHT WITHIN REACH.
--- NOTE | 2017-04-02 19:15 | NUR ---
PATIENT REPORT RECEIVED FROM MORNING NURSE. PATIENT AWAKE, ALERT, AND ORIENTED. PATIENT'S FRIEND IS PRESENT AT BEDSIDE. NO SIGNS AND SYMPTOMS OF DISTRESS NOTED. NO COMPLAINTS OF PAIN AT THIS TIME. RIGHT IJ JACIEL CATH NOTED. AND IV SITE NOTED ON RIGHT FOREARM, SALINE LOCKED. BED IN LOWEST POSITION, SIDE RAILS UP AND CALL LIGHT WITHIN REACH.
[2017-04-02] MEDS: SIMVASTATIN 40 MG TAB PO SCH (20:08)
--- NOTE | 2017-04-02 22:00 | NUR ---
RADIOLOGY CALLED AND NOTIFIED ME THAT UPPER EXTREMITY VENOUS MAPPING IS NOT DONE AT THIS RADIOLOGY LAB. WILL NOTIFY MORNING NURSE.
--- NOTE | 2017-04-02 23:13 | NUR ---
SPOKE TO DIALYSIS NURSE. DIALYSIS NURSE SAID THAT SHE WILL COME AROUND [phone] 04/03 TO DO DIALYSIS BEFORE PATIENT'S SURGERY. SHE ALSO SAID TO HOLD 0500 CLONIDINE.
[2017-04-03] VITALS: BP 138/73
--- NOTE | 2017-04-03 01:30 | NUR ---
CHECKED ON PATIENT. PATIENT IS ASLEEP. NO SIGNS AND SYMPTOMS OF DISTRESS NOTED. BED IN LOWEST POSITION. SIDE RAILS UP AND CALL LIGHT WITHIN REACH
[2017-04-03] MEDS: cloNIDine 0.1 MG TAB PO SCH ×3 (05:00→21:00)
[2017-04-03] MEDS: BLOOD GLUCOSE MONITORING 1 DEV DEV FS SCH ×4 (06:37→21:31)
[2017-04-03 06:47] LABS: BASOPHILS # (AUTO) 0.1 K/uL (0.00-0.22); BASOPHILS % (AUTO) 0.6 % (0.0-2.0); EOSINOPHILS # (AUTO) 0.2 K/uL (0-0.4); EOSINOPHILS % (AUTO) 1.9 % (0.0-4.0); HEMATOCRIT 24.4 % (36-52); HEMOGLOBIN 7.9 g/dL (12.0-18.0); LYMPHOCYTES # (AUTO) 1.6 K/uL (2.0-11.5); LYMPHOCYTES % (AUTO) 12.7 % (20.5-51.1); MEAN CORPUSCULAR HEMOGLOBIN 28 pg (27-31); MEAN CORPUSCULAR HGB CONC 32 g/dL (33-37); MEAN CORPUSCULAR VOLUME 86 fL (80-94); MONOCYTES # (AUTO) 0.9 K/uL (0.8-1.0); MONOCYTES % (AUTO) 7.5 % (1.7-9.3); NEUTROPHILS # (AUTO) 9.5 K/uL (1.8-7.7); NEUTROPHILS % (AUTO) 77.3 % (42.2-75.2); PLATELET COUNT (AUTO) 305 K/uL (140-450); RED BLOOD CELL COUNT(AUTO) 2.83 MIL/uL (4.20-6.10); RED CELL DISTRIBUTION WIDTH 12.7 % (11.6-13.7); WHITE BLOOD COUNT (AUTO) 12.3 K/uL (4.8-10.8)
--- NOTE | 2017-04-03 07:00 | NUR ---
INSULIN HELD, PATIENT NPO
[2017-04-03 07:10] LABS: ANION GAP 11.5 (8-16); CARBON DIOXIDE 25.7 mmol/L (21-32); POTASSIUM 4.2 mmol/L (3.5-5.1)
[2017-04-03 07:12] LABS: ALBUMIN 1.5 g/dL (3.4-5.0); ANION GAP 13.4 (8-16); CARBON DIOXIDE 24.8 mmol/L (21-32); POTASSIUM 4.2 mmol/L (3.5-5.1); TOTAL BILIRUBIN 0.2 mg/dL (0.0-1.0)
[2017-04-03 07:21] LABS: CREATININE 4.6 mg/dL (0.7-1.3)
--- NOTE | 2017-04-03 07:30 | NUR ---
RECEIVED REPORT FROM CLOTH BEAMER RN. PATIENT IS NPO FOR PROCEDURE TO BE DONE IN THE AM. HE IS AAOX4, REMINDED HIM ABOUT THE PROCEDURE FOR TODAY AND HE VERBALIZED UNDERSTANDING. RESPIRATORY EVEN AND UNLABORED. NO SIGNS AND SYMPTOMS OF DISTRESS NOTED AT THIS TIME. BED IN LOWEST POSITION, BED ALARM ON, FALL RISK PRECAUTIONS IN PLACE, CALL LIGHT PLACED WITHIN REACH. WILL CONTINUE TO MONITOR.
--- NOTE | 2017-04-03 07:39 | NUR ---
PATIENT REPORT GIVEN AT BEDSIDE. PATIENT IN STABLE CONDITION.
--- NOTE | 2017-04-03 07:45 | NUR ---
STONE FABRICATOR NURSE CALLED DIALYSIS NURSE TO CHANGE THE TIME OF THE DIALYSIS. DIALYSIS NURSE HASN'T CALLED BACK.
--- NOTE | 2017-04-03 07:50 | NUR ---
DIALYSIS NURSE HERE AND I INFORMED HER THAT PATIENT IS GOING TO HAVE PROCEDURE DONE AT 0930 OR 1000, SHE STATED THAT SHE WILL BE BACK LATER.
[2017-04-03 08:00] VITALS: BP 117/62
[2017-04-03] MEDS: CALCIUM ACETATE 667 MG TAB PO SCH ×3 (08:00→17:02)
[2017-04-03] MEDS: FERROUS SULFATE 325 MG TABEC PO SCH (08:00)
[2017-04-03] MEDS: METOPROLOL 25 MG TAB PO SCH ×2 (09:00→21:35)
[2017-04-03] MEDS ORDERED: VITAMIN B COMPLEX W/C 1 TAB PO SCH (09:00)
[2017-04-03] MEDS: VIT-B COMP/VIT-C/FOLIC ACID 1 TAB PO SCH (09:00)
[2017-04-03] MEDS: amLODIPine 5 MG TAB PO SCH (09:00)
[2017-04-03] MEDS: EPOETIN ALFA 10,000 UNITS/ML VIAL SUBQ SCH (10:34)
[2017-04-03] MEDS ORDERED: PROPOFOL 200 MG/20 ML VIAL IV ONE (11:00)
[2017-04-03] MEDS ORDERED: fentaNYL 0.05 MG/ML VIAL ONE (11:02)
[2017-04-03] MEDS ORDERED: MIDAZOLAM 2 MG/2 ML VIAL ONE (11:02)
--- NOTE | 2017-04-03 11:03 | NUR ---
PATIENT BEING TRANSPORTED TO OPERATING ROOM FOR TUNNEL CATH PLACEMENT.
[2017-04-03] MEDS ORDERED: LIDOCAINE 1% 50 ML ONE (11:30)
[2017-04-03] MEDS ORDERED: BUPIVACAINE-MPF 0.25% 30 ML VIAL INJ ONE (11:30)
[2017-04-03] MEDS ORDERED: ceFAZolin 1,000 MG VIAL ONE (11:30)
[2017-04-03] MEDS ORDERED: MORPHINE SULFATE 4 MG/ML SYR IVP PRN ×2 (11:55)
[2017-04-03] MEDS ORDERED: MIDAZOLAM 2 MG/2 ML VIAL IV SCH (11:55)
[2017-04-03] MEDS ORDERED: METOCLOPRAMIDE 10 MG/2 ML INJ VIAL IVP PRN (11:55)
[2017-04-03] MEDS ORDERED: MORPHINE SULFATE 2 MG/ML SYR IVP PRN (11:55)
[2017-04-03] MEDS ORDERED: VANCOMYCIN 1GM/DEXT 5% PREMIX 200 ML IV SCH (12:00)
--- NOTE | 2017-04-03 12:02 | NUR ---
04/03/17 RD INITIAL ASSESSMENT COMPLETED PLEASE REFER TO NUTRITION ASSESSMENT UNDER CARE ACTIVITY FOR ESTIMATED NEEDS. RECOMMENDATIONS: 1. WHEN MEDICALLY ABLE CONTINUE RENAL DIET TOLERATED. 2. RD WILL FOLLOW UP IN 5-7 DAYS; LOW RISK. DARRIAN SURESH RD
[2017-04-03] MEDS ORDERED: MORPHINE SULFATE 4 MG/ML SYR ONE (13:18)
--- NOTE | 2017-04-03 14:05 | NUR ---
RECEIVED PATIENT FROM OR STAFF. PATIENT IS AWAKE, ALERT AND ORIENTED X4. THEY PLACED A TUNNELED HD PERMACATHETER ON THE RIGHT. DRESSING IS CLEAN, DRY AND INTACT. 5 LB SANDBAG TO BE ON TO ADD PRESSURE UNTIL 1900. VITAL SIGNS ARE STABLE. WILL CONTINUE TO MONITOR.
[2017-04-03] MEDS: INSULIN LISPRO SLIDING SCALE 100 UNITS/ML VIAL SUBQ PRN ×3 (14:40→21:38)
--- NOTE | 2017-04-03 15:17 | NUR ---
PATIENT ATE A SANDWICH AND SOME SOUP, TOLERATED WELL.
--- NOTE | 2017-04-03 15:40 | NUR ---
SPOKE WITH STAR ARCHULETA FROM THE . DIALYSIS TO INFORM HER THAT THE PATIENT WAS BACK FROM SURGERY AND THAT HE CAN RECEIVE THE DIALYSIS. SHE STATED SHE WILL HAVE SOMEONE COME OUT.
[2017-04-03 16:00] VITALS: BP 144/67
--- NOTE | 2017-04-03 16:15 | NUR ---
SPOKE WITH DR FARIA, HE WANTED TO KNOW HOW PATIENT WAS DOING AND SEEING IF BLEEDING FROM THE SITE HAS STOPPED. HE WANTS TO SANDBAG TO REMAIN ON THE SITE UNTIL MIDNIGHT. WILL FOLLOW THROUGH AND ENDORSE IT TO INTERACTIVE PROJECT MANAGER.
--- NOTE | 2017-04-03 19:38 | NUR ---
ENDORSED PATIENT TO PLASTIC AND RECONSTRUCTIVE SURGEON RN FOR CONTINUITY OF CARE. PATIENT IS STABLE.
--- NOTE | 2017-04-03 19:40 | NUR ---
RECEIVED FROM AM RN IN BED WITH HD NURSE WITH HEMODIALYSIS ON GOING. PT. SLEEPING BUT WAKES UP WHEN TOUCHED. NO COMPLAINTS AT THIS TIME. NO SOB. CALL LIGHT WITH IN REACH. TELEMETRY MONITORING.
[2017-04-03 21:25] VITALS: BP 138/78
[2017-04-03] MEDS: SIMVASTATIN 40 MG TAB PO SCH (21:35)
--- NOTE | 2017-04-03 22:57 | NUR ---
PT. HEMODIALYSIS DONE AND PT. AWAKE AND ALERT. NO SOB. DENIES PAIN AT THIS TIME. CALL LIGHT WITH IN REACH. OUTPUT WAS 2 LITERS.
--- NOTE | 2017-04-03 23:43 | NUR ---
SLEEPING AT THIS TIME. CALL LIGHT WITH IN REACH. PROVIDED WITH MIDNIGHT SNACK PRIOR SLEEPING. TELEMETRY MONITORING. BED ALARM ON.
[2017-04-04 01:22] VITALS: BP 136/70
--- NOTE | 2017-04-04 01:24 | NUR ---
PT. AWAKE AT THIS TIME AND PLAYING WITH HIS CELL PHONE. CALL LIGHT WITH IN REACH. ENCOURAGED TO SLEEP.
--- NOTE | 2017-04-04 02:30 | NUR ---
PT. STILL AWAKE AT THIS TIME. ENCOURAGED TO SLEEP. "OK" SPEAKS MONGOLIAN AND GAMBIAN WELL. TELEMETRY MONITORING.
--- NOTE | 2017-04-04 04:00 | NUR ---
PT. ASLEEP AT THIS TIME. FLACC 0-. TELEMETRY MONITORING.
[2017-04-04 04:14] VITALS: BP 140/52
[2017-04-04] MEDS: MORPHINE SULFATE 4 MG/ML SYR IVP PRN ×2 (04:14→11:05)
[2017-04-04] MEDS: cloNIDine 0.1 MG TAB PO SCH ×3 (05:01→20:15)
--- NOTE | 2017-04-04 05:01 | NUR ---
SLEEPING AT THIS TIME. MEDICATED WITH PAIN RELIEVER FOR COMPLAINT OF LOWER LEG EXTREMITIES PAIN. VERBALIZES WELL. TELEMETRY MONITORING.
[2017-04-04] MEDS: BLOOD GLUCOSE MONITORING 1 DEV DEV FS SCH ×4 (05:28→20:16)
[2017-04-04] MEDS: INSULIN LISPRO SLIDING SCALE 100 UNITS/ML VIAL SUBQ PRN ×4 (05:30→20:21)
[2017-04-04] MEDS: METOPROLOL 25 MG TAB PO SCH ×2 (09:23→20:16)
[2017-04-04] MEDS: FERROUS SULFATE 325 MG TABEC PO SCH (09:26)
[2017-04-04] MEDS: CALCIUM ACETATE 667 MG TAB PO SCH ×3 (09:26→16:33)
[2017-04-04] MEDS: VIT-B COMP/VIT-C/FOLIC ACID 1 TAB PO SCH (09:27)
[2017-04-04] MEDS: amLODIPine 5 MG TAB PO SCH (09:27)
[2017-04-04 16:00] VITALS: BP 129/74
--- NOTE | 2017-04-04 19:15 | NUR ---
ENDORSED PATIENT TO TUMBLER DYEING MACHINE OPERATOR NURSE FOR CONTINUITY OF CARE. PATIENT IS STABLE.
--- NOTE | 2017-04-04 19:16 | NUR ---
PATIENT IS CURRENTLY RESTING IN BED AT THIS TIME.PATIENT DENIES PAIN AND DISCOMFORT NEEDS MET WILL CONTINUE TO MONITOR.
[2017-04-04 20:00] VITALS: BP 132/68
--- NOTE | 2017-04-04 20:00 | NUR ---
Patient's Plan of Care was discussed and reviewed with BIT SHARPENER: FEROZ LOMELI.
[2017-04-04] MEDS: SIMVASTATIN 40 MG TAB PO SCH (20:15)
--- NOTE | 2017-04-04 22:30 | NUR ---
PATIENT SLEEPING AT THIS TIME NEEDS MET WILL CONTINUE TO MONITOR.
[2017-04-05 00:20] VITALS: BP 145/73
--- NOTE | 2017-04-05 00:50 | NUR ---
PATIENT IS CURRENTLY SLEEPING IN BED NO DISTRESS WILL CONTINUE TO MONITOR.
--- NOTE | 2017-04-05 02:15 | NUR ---
PATIENT IS CURRENTLY RESSTING IN BED IN NO DISTRESS WILL CONTINUE TO MONITOR.
--- NOTE | 2017-04-05 04:30 | NUR ---
PATIENT STABLE WILL CONTINUE TO MONITOR.
[2017-04-05] MEDS: BLOOD GLUCOSE MONITORING 1 DEV DEV FS SCH ×4 (06:09→20:50)
[2017-04-05 06:47] LABS: BASOPHILS # (AUTO) 0.1 K/uL (0.00-0.22); BASOPHILS % (AUTO) 0.8 % (0.0-2.0); EOSINOPHILS # (AUTO) 0.4 K/uL (0-0.4); LYMPHOCYTES # (AUTO) 1.5 K/uL (2.0-11.5); LYMPHOCYTES % (AUTO) 12.3 % (20.5-51.1); MEAN CORPUSCULAR HEMOGLOBIN 29 pg (27-31); MEAN CORPUSCULAR HGB CONC 34 g/dL (33-37); MEAN CORPUSCULAR VOLUME 85 fL (80-94); MONOCYTES # (AUTO) 0.9 K/uL (0.8-1.0); MONOCYTES % (AUTO) 7.4 % (1.7-9.3); NEUTROPHILS # (AUTO) 9.2 K/uL (1.8-7.7); NEUTROPHILS % (AUTO) 76.5 % (42.2-75.2); PLATELET COUNT (AUTO) 269 K/uL (140-450); RED BLOOD CELL COUNT(AUTO) 2.38 MIL/uL (4.20-6.10); RED CELL DISTRIBUTION WIDTH 12.8 % (11.6-13.7); WHITE BLOOD COUNT (AUTO) 12.1 K/uL (4.8-10.8)
[2017-04-05 06:52] LABS: HEMOGLOBIN 6.9 g/dL (12.0-18.0)
[2017-04-05 06:53] LABS: HEMATOCRIT 20.4 % (36-52)
[2017-04-05 07:03] LABS: ANION GAP 9.7 (8-16); CARBON DIOXIDE 26.9 mmol/L (21-32); POTASSIUM 5.6 mmol/L (3.5-5.1)
--- NOTE | 2017-04-05 07:15 | NUR ---
REPORT ENDORSED TO LEW RAINEY ENDORSED ABOUT THE LOW HBG AND HCT AND ALSO TO FOLLOW UP WITH MD ANDERSON AND MD CMMAHON IN REGARDS TO THE DRESSING CHANGES.LEW RAINEY WILL RESUME CARE.
--- NOTE | 2017-04-05 07:16 | NUR ---
PATIENT LYING IN BED COMFORTABLY. IN STABLE CONDITION, NO DISTRESS NOTED. RESPIRATIONS EVEN, UNLABORED, ON ROOM AIR. DENIES ANY PAIN AT THIS TIME. IV INTACT, PATENT, ON SL. RIGHT 5TH TOE AND LEFT BIG TOE DRESSINGS INTACT. AAOX4, SKIN WARM TO TOUCH, APPROPRIATE TO ETHNICITY. LUNGS CTA ON ALL LOBES. ABDOMEN SOFT, NON-TENDER. PLAN OF CARE REVIEWED WITH PATIENT. PATIENT VERBALIZED UNDERSTANDING. SAFETY MEASURES IN PLACE, FALL PRECAUTIONS IN PLACE, BED ALARM ON, CALL LIGHT WITHIN REACH, BED RAILS UP X2. WILL CONTINUE TO MONITOR.
[2017-04-05 07:24] LABS: CREATININE 4.8 mg/dL (0.7-1.3)
--- NOTE | 2017-04-05 07:35 | NUR ---
RECEIVED CRITICAL LAB VALUE FROM LAB: CREATININE:4.8. PAGED DR. VERDUGO AT [id number]. AWAITING CALL BACK.
--- NOTE | 2017-04-05 07:50 | NUR ---
[address] VERDUGO A SECOND TIME REGARDING CRITICAL LAB VALUE: CREATININE:4.8. 0800 DR. VERDUGO RETURNED CALL. LAB VALUE REPORTED. NO NEW ORDERS AT THIS TIME. WILL CONTINUE TO MONITOR PATIENT.
[2017-04-05 08:00] VITALS: BP 137/70
[2017-04-05] MEDS: VIT-B COMP/VIT-C/FOLIC ACID 1 TAB PO SCH (08:49)
[2017-04-05] MEDS: FERROUS SULFATE 325 MG TABEC PO SCH (08:50)
[2017-04-05] MEDS: amLODIPine 5 MG TAB PO SCH (08:50)
[2017-04-05] MEDS: CALCIUM ACETATE 667 MG TAB PO SCH ×3 (08:51→16:35)
[2017-04-05] MEDS: METOPROLOL 25 MG TAB PO SCH ×2 (08:51→20:52)
--- NOTE | 2017-04-05 08:53 | NUR ---
PATIENT LYING IN BED WATCHING TV. NO DISTRESS NOTED. RESPIRATIONS EVEN, UNLABORED, ON ROOM AIR. PATIENT REPORTS FEELING FATIGUE DUE TO ANEMIA. MEDICATIONS DUE GIVEN. BLOOD TRANSFUSION 2 UNITS OF PACKED RED BLOOD CELLS ORDERED BY DR. VERDUGO DUE TO LOW H&H. BLOOD TRANSFUSION PROCEDURE EXPLAINED AND CONSENT SIGNED BY PATIENT. ANSWERED ALL QUESTIONS REGARDING BLOOD TRANSFUSION FROM PATIENT. SAFETY MEASURES IN PLACE, CALL LIGHT WITHIN REACH. WILL CONTINUE TO MONITOR.
[2017-04-05] MEDS ORDERED: VANCOMYCIN 500 MG in DEXTROSE 5% 100 ML IV SCH (09:00)
--- NOTE | 2017-04-05 09:30 | NUR ---
DR. CHAPARRO AT BEDSIDE CHANGING WOUND DRESSINGS ON B/L FEET. WILL CONTINUE TO MONITOR.
--- NOTE | 2017-04-05 11:44 | NUR ---
CM NOTE PER HOLLIS, HEMODIALYSIS COORDINATOR FOR [facility], PROVIDED OUTPATIENT HEMODIALYSIS SCHEDULE: T--SA @ 0944 IN [facility] ([address], [place] [address]; [phone]). WILL UPDATE HOLLIS ON WHERE AND WHEN PATIENT WILL BE DISCHARGING TO.
--- NOTE | 2017-04-05 12:15 | NUR ---
HEMODIALYSIS STARTED AT BEDSIDE BY HEMODIALYSIS NURSE. SAFETY MEASURES IN PLACE, CALL LIGHT WITHIN REACH. WILL CONTINUE TO MONITOR.
--- NOTE | 2017-04-05 12:55 | NUR ---
1250 PRE VITAL SIGNS TAKEN TO ADMINISTER 2 UNITS OF PACKED RED BLOOD CELLS TO PATIENT. BLOOD TO BE TRANSFUSED DURING DIALYSIS. FIRST UNIT OF BLOOD TO BE GIVEN BY HEMODIALYSIS NURSE. FIRST UNIT OF BLOOD STARTED INFUSING ON 1255. SAFETY MEASURES IN PLACE, CALL LIGHT WITHIN REACH. WILL CONTINUE TO MONITOR.
[2017-04-05] MEDS: INSULIN LISPRO SLIDING SCALE 100 UNITS/ML VIAL SUBQ PRN ×2 (12:58→17:47)
--- NOTE | 2017-04-05 15:10 | NUR ---
PT NOTES PT EVAL ORDER RECEIVED, BUT PATIENT CURRENTLY ON HD AT THIS TIME, NOTED LOW H/H, BUT TRANSFUSED 2 UNITS DURING HD. PATIENT'S AT BEDSIDE. PATIENT'S INDICATED THAT THEY LIVE IN 2 ST[address] [facility], BEDROOM AND BATHROOM ON 2ND FLOOR. PATIENT'S INDICATED THAT PATIENT'S PLOF WAS INDEP WITH HH GAIT WITH SPC, B AFO D/T H/O DROP FOOT, ASSIST WITH SOME ADLS LIKE DRESSING AND BATHING, AND ASSISTED UP/DOWN STAIRS. PATIENT'S DID EXPRESS CONCERN OF PATIENT'S MOBILITY AT THIS TIME AND IF SHE WILL BE ABLE TO CARE FOR HIM AT HOME. INDICATED TO THAT WE WILL EVAL PATIENT TOMORROW AND WILL BE ABLE TO BETTER PROVIDE APPROPRIATE RECOMM. ACCORDING TO MANAGER ENTRY, POSSIBLE SNF PLACEMENT. WILL FOLLOW UP WITH PT EVAL TOMORROW. NURSING AWARE.
--- NOTE | 2017-04-05 15:15 | NUR ---
HEMODIALYSIS COMPLETED. HEMODIALYSIS NURSE REPORT 2000 ML TOTAL OUTPUT FROM HEMODIALYSIS. NO ADVERSE BLOOD TRANSFUSION REACTION NOTED. BLOOD PRESSURE IS ELEVATED, WILL MEDICATE ORDERED. SAFETY MEASURES IN PLACE, CALL LIGHT WITHIN REACH. WILL CONTINUE TO MONITOR. Addendum: 04/05/17 at 1852 by Ihsan Hemphill RN DISREGARD, DUPLICATE NOTE.
--- NOTE | 2017-04-05 15:21 | NUR ---
CM NOTE CONCURRENT REVIEW FAXED TO [facility] / FAX# [phone], ATTN: ORESTES #[phone] [id number]
[2017-04-05 16:00] VITALS: BP 176/77
--- NOTE | 2017-04-05 16:00 | NUR ---
PATIENT SITTING UP IN BED WITH FAMILY MEMBERS AT BEDSIDE. NO DISTRESS NOTED. RESPIRATIONS EVEN, UNLABORED, ON ROOM AIR. DENIES ANY PAIN. HEMODIALYSIS IS COMPLETE. HEMODIALYSIS REMOVED 2000 ML. BLOOD PRESSURE IS HIGH, WILL MEDICATE WITH HYDRALAZINE PER ORDERS. SAFETY MEASURES IN PLACE, CALL LIGHT WITHIN REACH. WILL CONTINUE TO MONITOR.
--- NOTE | 2017-04-05 16:27 | NUR ---
PATIENT SITTING IN BED WITH FAMILY MEMBERS AT BEDSIDE PERFORMING BIBLE STUDY. NO DISTRESS NOTED. DENIES ANY PAIN AT THIS TIME. MEDICATIONS DUE GIVEN. BLOOD PRESSURE HYDRALAZINE PRN GIVEN DUE TO HIGH BP. SAFETY MEASURES IN PLACE, CALL LIGHT WITHIN REACH. WILL CONTINUE TO MONITOR.
[2017-04-05] MEDS: hydrALAZINE 20 MG/ML VIAL IVP PRN ×2 (16:34→18:34)
[2017-04-05] MEDS ORDERED: PIPER/TAZO 2.25GM/D5W PREMIX 50 ML IV SCH (17:00)
[2017-04-05] MEDS: ACETAMINOPHEN 325 MG TAB PO PRN (17:54)
--- NOTE | 2017-04-05 17:54 | NUR ---
PATIENT LYING IN BED WITH FAMILY MEMBERS AT BEDSIDE. DENIES ANY PAIN. PATIENT FEELS HOT TO TOUCH. DENIES FEELING FEVER. TEMPERATURE TAKEN AND WAS 100.4. WILL MEDICATE WITH TYLENOL. SAFETY MEASURES IN PLACE, CALL LIGHT WITHIN REACH. WILL CONTINUE TO MONITOR.
--- NOTE | 2017-04-05 18:52 | NUR ---
PATIENT LYING IN BED TALKING WITH FAMILY MEMBERS AT BEDSIDE. TEMPERATURE DECREASED TO 100.0 AFTER GIVING TYLENOL. WILL CONTINUE TO MONITOR.
--- NOTE | 2017-04-05 19:27 | NUR ---
GAVE REPORT TO CHARGE NURSECACHORRO. PATIENT IN STABLE CONDITION.
--- NOTE | 2017-04-05 19:55 | NUR ---
RECEIVED REPORT FROM CHARGE NURSE. PT IS AAOX4. PT'S FRIEND AT BEDSIDE. NO SIGNS AND SYMPTOMS OF DISTRESS NOTED. IV TO LEFT FA #20G, SL. WOUND DRESSING ON B/L FEET, CLEAN AND DRY. SAFETY AND FALL PRECAUTION IN PLACE. CALL LIGHT WITHIN REACH. WILL CONTINUE TO MONITOR.
[2017-04-05 20:00] VITALS: BP 140/66
[2017-04-05] MEDS: SIMVASTATIN 40 MG TAB PO SCH (20:52)
[2017-04-05] MEDS: cloNIDine 0.1 MG TAB PO SCH (20:53)
[2017-04-05] MEDS: PIPER/TAZO 2.25GM/D5W PREMIX 50 ML IV SCH (20:54)
--- NOTE | 2017-04-05 21:45 | NUR ---
ASSISTED PT TO GO TO THE BATHROOM. NO C/O PAIN. CALL LIGHT WITHIN REACH.
--- NOTE | 2017-04-06 00:30 | NUR ---
PT SLEEPING. NO SIGNS OF DISTRESS NOTED. CALL LIGHT WITHIN REACH.
--- NOTE | 2017-04-06 02:40 | NUR ---
PT SLEEPING. NO SIGNS OF DISTRESS. WILL CONTINUE TO MONITOR. CALL LIGHT WITHIN REACH.
[2017-04-06] MEDS: BLOOD GLUCOSE MONITORING 1 DEV DEV FS SCH ×4 (05:45→20:34)
[2017-04-06] MEDS: PIPER/TAZO 2.25GM/D5W PREMIX 50 ML IV SCH ×3 (05:47→20:48)
[2017-04-06 06:18] LABS: BASOPHILS # (AUTO) 0.1 K/uL (0.00-0.22); BASOPHILS % (AUTO) 0.4 % (0.0-2.0); EOSINOPHILS # (AUTO) 0.3 K/uL (0-0.4); EOSINOPHILS % (AUTO) 2.2 % (0.0-4.0); HEMATOCRIT 27.3 % (36-52); HEMOGLOBIN 9.1 g/dL (12.0-18.0); LYMPHOCYTES # (AUTO) 1.2 K/uL (2.0-11.5); LYMPHOCYTES % (AUTO) 9.5 % (20.5-51.1); MEAN CORPUSCULAR HEMOGLOBIN 28 pg (27-31); MEAN CORPUSCULAR HGB CONC 34 g/dL (33-37); MEAN CORPUSCULAR VOLUME 85 fL (80-94); MONOCYTES # (AUTO) 1.3 K/uL (0.8-1.0); MONOCYTES % (AUTO) 10.3 % (1.7-9.3); NEUTROPHILS # (AUTO) 9.9 K/uL (1.8-7.7); NEUTROPHILS % (AUTO) 77.6 % (42.2-75.2); PLATELET COUNT (AUTO) 202 K/uL (140-450); RED BLOOD CELL COUNT(AUTO) 3.22 MIL/uL (4.20-6.10); RED CELL DISTRIBUTION WIDTH 14.2 % (11.6-13.7); WHITE BLOOD COUNT (AUTO) 12.8 K/uL (4.8-10.8)
[2017-04-06 06:36] LABS: ANION GAP 9.7 (8-16); CARBON DIOXIDE 26.9 mmol/L (21-32); CREATININE 3.5 mg/dL (0.7-1.3); POTASSIUM 3.6 mmol/L (3.5-5.1)
[2017-04-06] MEDS: INSULIN LISPRO SLIDING SCALE 100 UNITS/ML VIAL SUBQ PRN ×4 (06:52→20:39)
--- NOTE | 2017-04-06 07:23 | NUR ---
ENDORSED PT TO DAY SHIFT NURSE. PT IN STABLE CONDITION.
--- NOTE | 2017-04-06 07:26 | NUR ---
RECEIVED BEDSIDE REPORT FROM NIGHT RN. PT SLEEPING IN BED. AAOX4. NO S/S OF ACUTE DISTRESS. PT DENIES PAIN. IV SITE PATENT AND INTACT. DIALYSIS ACCESS NOTED. DRESSING TO BILATERAL FEET DRY AND INTACT. PLAN OF CARE DISCUSSED. PT VERBALIZED UNDERSTANDING. CALL LIGHT WITHIN REACH. SAFETY MEASURES ENSURED. WILL CONTINUE TO MONITOR.
[2017-04-06 08:00] VITALS: BP 128/65
[2017-04-06] MEDS: METOPROLOL 25 MG TAB PO SCH ×2 (08:36→20:46)
[2017-04-06] MEDS: VIT-B COMP/VIT-C/FOLIC ACID 1 TAB PO SCH (08:38)
[2017-04-06] MEDS: FERROUS SULFATE 325 MG TABEC PO SCH (08:38)
[2017-04-06] MEDS: CALCIUM ACETATE 667 MG TAB PO SCH ×3 (08:38→17:40)
[2017-04-06] MEDS: amLODIPine 5 MG TAB PO SCH (08:39)
[2017-04-06] MEDS: EPOETIN ALFA 10,000 UNITS/ML VIAL SUBQ SCH (08:40)
--- NOTE | 2017-04-06 08:43 | NUR ---
AM MEDICATION GIVEN WITH EDUCATION. PT VERBALIZED UNDERSTANDING. CALL LIGHT WITHIN REACH. SAFETY MEASURES ENSURED. WILL CONTINUE TO MONITOR.
--- NOTE | 2017-04-06 11:42 | NUR ---
FAMILY AT BEDSIDE. Pt. ALERT AND ORIENTED, ABLE TO VERBALIZE NEEDS. NO SOB, NO ACUTE DISTRESS. CALL LIGHT WITHIN REACH, BED IN LOW POSITION, LOCKED. NEEDS ATTENDED. WILL CONTINUE TO MONITOR.
--- NOTE | 2017-04-06 11:48 | NUR ---
RECEIVED ORDER FOR PATIENT FOR SNF FOR PT AND IV ANTIBIOTICS. I CALLED PORTER FROM [facility] AND SHE SAID TO TRY J[facility]. SPOKE WITH ALICE AND FAXED INQUIRY. I SPOKE WITH ORESTES FROM [facility], [facility] AND GAVE HER THE INFORMATION ON THE HD CHAIR TIME AND PLACE.
[2017-04-06] MEDS: cloNIDine 0.1 MG TAB PO SCH ×3 (12:27→21:00)
--- NOTE | 2017-04-06 12:57 | NUR ---
RECEIVED A CALL FROM ALICE FROM [facility] . THEY CAN ACCEPT THE PATIENT. SPOKE WITH THE , SHE WANTED TO KNOW IF WE COULD FIND A PLACE IN [facility] Addendum: 04/06/17 at 1305 by Lynne Roach [facility]. IN [place]. I FAXED INQUIRY TO [facility].
--- NOTE | 2017-04-06 15:30 | NUR ---
PT RESTING IN BED. NO S/S OF ACUTE DISTRESS. PT DENIES PAIN. CALL LIGHT WITHIN REACH. SAFETY MEASURES ENSURED. WILL CONTINUE TO MONITOR.
--- NOTE | 2017-04-06 15:36 | NUR ---
SPOKE WITH EARLIER AND GAVE HER INFORMATION ON [facility]. I CALLED [facility] AND SPOKE WITH DARRIAN, THEY HAVE A BED FOR PATIENT UPON DISCHARGE. FAXED CONCURRENT REVIEW TO [facility] [phone] ORESTES [phone] FAXED CONCURRENT REVIEW TO [facility] [phone] PHONE PORTER [phone]
[2017-04-06 16:00] VITALS: BP 129/59
--- NOTE | 2017-04-06 19:07 | NUR ---
ENDORSED PLAN OF CARE TO NIGHT RN. PT REMAINS STABLE.
--- NOTE | 2017-04-06 19:08 | NUR ---
RECEIVED REPORT FROM DAY NURSE AT BEDSIDE, PT IN STABLE CONDITION. AAOX4 ON RA, IV TO L FA 20G , PATENT AND INTACT. RT INTERNAL JUGULAR TUNNELED HD, PERM A-CATH PLACEMENT, PT WILL RECEIVE DIALYSIS TOMORROW. DRESSING ON R 5TH TOE, AND L BIG TOE S/P I AND D. RESPIRATIONS ARE EVEN AND UNLABORED. INITIAL ASSESSMENT COMPLETED. PLAN OF CARE DISCUSSED WITH PT, PT VERBALIZED UNDERSTANDING. ALL SAFETY PRECAUTIONS MET, CALL LIGHT WITHIN REACH, WILL CONTINUE TO MONITOR.
--- NOTE | 2017-04-06 20:46 | NUR ---
DID NOT ADMINISTER METOPROLOL DUE TO BRADYCARDIA. PULSE 58 AND HAS BEEN RUNNING LOW. WILL CONTINUE TO MONITOR
[2017-04-06] MEDS: SIMVASTATIN 40 MG TAB PO SCH (20:47)
--- NOTE | 2017-04-06 21:00 | NUR ---
MEDICATION GIVEN WITH EDUCATION. PT VERBALIZED UNDERSTANDING. CALL LIGHT WITHIN REACH. SAFETY MEASURES ENSURED. WILL CONTINUE TO MONITOR.
[2017-04-07] VITALS: BP 132/62
[2017-04-07] MEDS: PIPER/TAZO 2.25GM/D5W PREMIX 50 ML IV SCH ×2 (05:21→12:24)
--- NOTE | 2017-04-07 05:49 | NUR ---
CATAPRESS NON ADMIN THIS SHIFT, PT HAS BEEN BRADYCARDIC 55-58 PULSE RATE
[2017-04-07 05:56] LABS: BASOPHILS # (AUTO) 0.1 K/uL (0.00-0.22); BASOPHILS % (AUTO) 0.8 % (0.0-2.0); EOSINOPHILS # (AUTO) 0.6 K/uL (0-0.4); EOSINOPHILS % (AUTO) 5.3 % (0.0-4.0); HEMATOCRIT 27.9 % (36-52); HEMOGLOBIN 9.1 g/dL (12.0-18.0); LYMPHOCYTES # (AUTO) 1.5 K/uL (2.0-11.5); LYMPHOCYTES % (AUTO) 12.5 % (20.5-51.1); MEAN CORPUSCULAR HEMOGLOBIN 28 pg (27-31); MEAN CORPUSCULAR HGB CONC 33 g/dL (33-37); MEAN CORPUSCULAR VOLUME 84 fL (80-94); MONOCYTES # (AUTO) 1.3 K/uL (0.8-1.0); MONOCYTES % (AUTO) 10.4 % (1.7-9.3); NEUTROPHILS # (AUTO) 8.6 K/uL (1.8-7.7); PLATELET COUNT (AUTO) 219 K/uL (140-450); RED CELL DISTRIBUTION WIDTH 14.1 % (11.6-13.7); WHITE BLOOD COUNT (AUTO) 12.1 K/uL (4.8-10.8)
[2017-04-07] MEDS: BLOOD GLUCOSE MONITORING 1 DEV DEV FS SCH ×3 (06:42→16:27)
[2017-04-07] MEDS: INSULIN LISPRO SLIDING SCALE 100 UNITS/ML VIAL SUBQ PRN ×3 (06:43→17:28)
--- NOTE | 2017-04-07 07:18 | NUR ---
GAVE REPORT TO AM NURSE AT THE BEDSIDE FOR CONTINUITY OF CARE. PT IN STABLE CONDITION. NO S/S OF DISTRESS NOTED
--- NOTE | 2017-04-07 07:22 | NUR ---
RECEIVED BEDSIDE REPORT FROM NURSE VAUGHN, PT RESTING IN BED WITH NO ACUTE DISTRESS, A/O X 4, PT DENIES PAIN, IV SITE PATENT AND INTACT, CALL LIGHT WITHIN REACH, SAFETY PRECAUTIONS TAKEN, PLAN OF CARE DISCUSSED WITH PT, PT VERBALIZED UNDERSTANDING, WILL CONT TO MONITOR.
[2017-04-07 07:58] VITALS: BP 130/70
[2017-04-07] MEDS: VIT-B COMP/VIT-C/FOLIC ACID 1 TAB PO SCH (08:19)
[2017-04-07] MEDS: FERROUS SULFATE 325 MG TABEC PO SCH (08:19)
[2017-04-07] MEDS: CALCIUM ACETATE 667 MG TAB PO SCH ×3 (08:19→17:27)
[2017-04-07] MEDS: METOPROLOL 25 MG TAB PO SCH (08:21)
[2017-04-07] MEDS: amLODIPine 5 MG TAB PO SCH (08:21)
--- NOTE | 2017-04-07 08:22 | NUR ---
DUE MEDICATION GIVEN WITH EDUCATION, PT VERBALIZES UNDERSTANDING, CALL LIGHT WITHIN REACH, WILL CONT TO MONITOR.
[2017-04-07] MEDS ORDERED: HYDROcodone/APAP 5/325 MG 1 TAB TAB PO PRN (08:25)
--- NOTE | 2017-04-07 09:35 | NUR ---
ROLL TABLE OPERATOR AT BEDSIDE, DIALYSIS STARTED, WILL CONT TO MONITOR.
[2017-04-07 10:49] LABS: ANION GAP 12.4 (8-16); CARBON DIOXIDE 24.7 mmol/L (21-32); POTASSIUM 4.1 mmol/L (3.5-5.1)
--- NOTE | 2017-04-07 10:49 | NUR ---
PATIENT TO HAVE [facility]. PORTER [facility] SAID SHE WOULD AUTHORIZE [facility] FAXED INFORMATION TO [facility] AT [phone] PHONE [phone]
[2017-04-07] MEDS: cloNIDine 0.1 MG TAB PO SCH (12:25)
--- NOTE | 2017-04-07 14:13 | NUR ---
[facility] AND REVIEW CHART. RECEIVED A CALL FROM GIOVANNA FROM [facility]. THEY HAVE ACCEPTED THE PATIENT. HE WILL GO TO ROOM 1113 A AFTER [address] Gee TURK. CALL REPORT TO [phone]. I SPOKE WITH PORTER FROM [facility] AUTH FOR [facility] TRANSPORT IS [id number].
--- NOTE | 2017-04-07 14:39 | NUR ---
WENT TO SEE THE PATIENT. INFORMED HIM THAT [facility] HAS ACCEPTED HIM. HE SAID FOR ME TO SPEAK WITH HIS , AND CALL [phone]. I CALLED, UNABLE TO LEAVE MESSAGE, PHONE HAS NO VOICE MAIL BOX SET UP.
[2017-04-07] MEDS ORDERED: PIPE50SO5 IV (14:46)
--- NOTE | 2017-04-07 15:12 | NUR ---
SPOKE TO PT'S . SHE IS IN AGREEMENT WITH [facility] AND IS AWARE OF TRANSFER TODAY..
--- NOTE | 2017-04-07 15:23 | NUR ---
I SET UP [facility] 7P.M. DANO SENIOR LOAN PROCESSOR NURSE AWARE. CHARU HACKETT CM.CALLED BENTON AT [facility] AND TOLD HER PATIENT WILL GO TO [facility] CHARU HACKETT CM CALLED ALICE AT [facility] IN INFORMED HER PATIENT TO GO TO [place]. I CALLED DARLIN FROM [facility] AND INFORMED HER THAT THIS PATIENT WILL GO TO [facility]. SHE ASKED ME FOR THE RECIPROCATING DRILL OPERATOR AT [place], AND I GAVE HER THE PHONE FOR KELVIN [phone].
[2017-04-07 16:00] VITALS: BP 144/76
[2017-04-07 16:27] VITALS: BP 144/76
--- NOTE | 2017-04-07 17:51 | NUR ---
CALLED REPORT TO RN AT [facility], PT AND VERBALIZE UNDERSTANDING, PT DENIES ANY PAIN, PT REMAINS STABLE, NO S/S OF ACUTE DISTRESS.
--- NOTE | 2017-04-07 18:56 | NUR ---
[facility] HERE FOR SPORTS ATTORNEY, NO S/S OF DISTRESS, PT DENIES PAIN, PT REMAINS STABLE.
== END 2017-04-07 18:54 | DRG 710 ==
LOC: MED 11:28 → MTU 13:56
PROVIDERS: ADMIT Hospitalist; ATTEND Hospitalist
PROC: 30233N1 Transfusion of Nonautologous Red Blood Cells into Peripheral Vein, Percutaneous Approach (ICD-10-PCS; 2017-03-30)
PROC: 0JBR0ZZ Excision of Left Foot Subcutaneous Tissue and Fascia, Open Approach (ICD-10-PCS; 2017-03-31)
PROC: 30233N1 Transfusion of Nonautologous Red Blood Cells into Peripheral Vein, Percutaneous Approach (ICD-10-PCS; 2017-03-31)
PROC: 0JBQ0ZZ Excision of Right Foot Subcutaneous Tissue and Fascia, Open Approach (ICD-10-PCS; principal; 2017-03-31 12:00)
PROC: 0Y6M0ZF Detachment at Right Foot, Partial 5th Ray, Open Approach (ICD-10-PCS; 2017-03-31 12:00)
PROC: 02HV33Z Insertion of Infusion Device into Superior Vena Cava, Percutaneous Approach (ICD-10-PCS; 2017-04-01)
PROC: B543ZZA Ultrasonography of Right Jugular Veins, Guidance (ICD-10-PCS; 2017-04-01)
PROC: 5A1D70Z Performance of Urinary Filtration, Intermittent, Less than 6 Hours Per Day (ICD-10-PCS; 2017-04-01)
PROC: 0JH63XZ Insertion of Tunneled Vascular Access Device into Chest Subcutaneous Tissue and Fascia, Percutaneous Approach (ICD-10-PCS; 2017-04-03)
PROC: 02HV33Z Insertion of Infusion Device into Superior Vena Cava, Percutaneous Approach (ICD-10-PCS; 2017-04-03)
PROC: B5181ZA Fluoroscopy of Superior Vena Cava using Low Osmolar Contrast, Guidance (ICD-10-PCS; 2017-04-03)
PROC: 02PYX3Z Removal of Infusion Device from Great Vessel, External Approach (ICD-10-PCS; 2017-04-03)
PROC: 5A1D70Z Performance of Urinary Filtration, Intermittent, Less than 6 Hours Per Day (ICD-10-PCS; 2017-04-03)
PROC: 30233N1 Transfusion of Nonautologous Red Blood Cells into Peripheral Vein, Percutaneous Approach (ICD-10-PCS; 2017-04-05)
PROC: 5A1D70Z Performance of Urinary Filtration, Intermittent, Less than 6 Hours Per Day (ICD-10-PCS; 2017-04-05)
PROC: 5A1D70Z Performance of Urinary Filtration, Intermittent, Less than 6 Hours Per Day (ICD-10-PCS; 2017-04-07)
DX: A41.9 Sepsis, unspecified organism (principal); E43 Unspecified severe protein-calorie malnutrition; N17.9 Acute kidney failure, unspecified; I96 Gangrene, not elsewhere classified; E87.2 Acidosis; E11.52 Type 2 diabetes mellitus with diabetic peripheral angiopathy with gangrene; N18.6 End stage renal disease; E11.69 Type 2 diabetes mellitus with other specified complication; M86.171 Other acute osteomyelitis, right ankle and foot; I12.0 Hypertensive chronic kidney disease with stage 5 chronic kidney disease or end stage renal disease; E78.00 Pure hypercholesterolemia, unspecified; E11.22 Type 2 diabetes mellitus with diabetic chronic kidney disease; E11.42 Type 2 diabetes mellitus with diabetic polyneuropathy; E87.1 Hypo-osmolality and hyponatremia; L02.611 Cutaneous abscess of right foot; E11.319 Type 2 diabetes mellitus with unspecified diabetic retinopathy without macular edema; E83.51 Hypocalcemia; E83.42 Hypomagnesemia; D64.9 Anemia, unspecified; E11.621 Type 2 diabetes mellitus with foot ulcer; L97.519 Non-pressure chronic ulcer of other part of right foot with unspecified severity; F10.21 Alcohol dependence, in remission; L97.529 Non-pressure chronic ulcer of other part of left foot with unspecified severity; E87.5 Hyperkalemia; E78.5 Hyperlipidemia, unspecified; Z99.2 Dependence on renal dialysis; Z83.3 Family history of diabetes mellitus; Z68.23 Body mass index [BMI] 23.0-23.9, adult; Z81.1 Family history of alcohol abuse and dependence; Z80.9 Family history of malignant neoplasm, unspecified
CPT/HCPCS: 36415; 71010; 73630; 80048; 80053; 80202; 82948; 83036; 83735; 83880; 84100; 84443; 84484; 84550; 85025; 85610; 85651; 85730; 86140; 86704; 86706; 86803; 86886; 86900; 86901; 86920; 87040; 87070; 87075; 87077; 87081; 87186; 87205; 87340; 88304; 88311; 93005; 97110; 97116; 97530; 99285; C1750; J0360; J0690; J0885; J1644; J1815; J1940; J2001; J2250; J2270; J2543; J2704; J3010; J3370; J3490; J7030; J7060; P9016; Q0092

== ENCOUNTER 2017-08-09 00:25 | Inpatient (IN) | payer OTHER ==
[2017-08-09] VITALS (9 sets, daily range): BP systolic 116–220; BP diastolic 63–111
[~2017-08-09] VITALS: Ht 165.1 cm; Wt 52.2 kg
[~2017-08-09 00:25] MED LIST changes: +PIPE50SO5 IV
--- NOTE | 2017-08-09 00:43 | NUR ---
PT BINU ALS. TAKEN TO BED 1
[2017-08-09] MEDS ORDERED: LORazepam 2 MG/ML VIAL IVP ONE ×4 (00:45→04:00)
[2017-08-09] MEDS ORDERED: NACL 0.9% 1,000 ML IV ONE (00:45)
[2017-08-09 01:05] LABS: BASOPHILS # (AUTO) 0.1 K/uL (0.00-0.22); BASOPHILS % (AUTO) 0.6 % (0.0-2.0); EOSINOPHILS # (AUTO) 0.2 K/uL (0-0.4); EOSINOPHILS % (AUTO) 2.4 % (0.0-4.0); HEMATOCRIT 31.9 % (36-52); HEMOGLOBIN 10.7 g/dL (12.0-18.0); LYMPHOCYTES # (AUTO) 1.1 K/uL (2.0-11.5); LYMPHOCYTES % (AUTO) 11.6 % (20.5-51.1); MEAN CORPUSCULAR HEMOGLOBIN 29 pg (27-31); MEAN CORPUSCULAR HGB CONC 33 g/dL (33-37); MEAN CORPUSCULAR VOLUME 86 fL (80-94); MONOCYTES # (AUTO) 0.4 K/uL (0.8-1.0); MONOCYTES % (AUTO) 4.6 % (1.7-9.3); NEUTROPHILS % (AUTO) 80.8 % (42.2-75.2); PLATELET COUNT (AUTO) 205 K/uL (140-450); RED BLOOD CELL COUNT(AUTO) 3.73 MIL/uL (4.20-6.10); RED CELL DISTRIBUTION WIDTH 17.4 % (11.6-13.7); WHITE BLOOD COUNT (AUTO) 9.8 K/uL (4.8-10.8)
[2017-08-09 01:20] LABS: APPEARANCE,URINE CLEAR (CLEAR); BILIRUBIN,URINE NEGATIVE (NEGATIVE); BLOOD, URINE 2+ (NEGATIVE); COLOR,URINE YELLOW (YELLOW); LEUKOCYTE ESTERASE ,URINE NEGATIVE (NEGATIVE); NITRITE, URINE NEGATIVE (NEGATIVE); PH,URINE 6.5 (5.0-9.0); UGLUCOSE 3+ (NEGATIVE)
[2017-08-09 01:38] LABS: BARBITURATE, URINE NEG. ng/ml (NEG <=200); BENZODIAZEPINE, URINE NEG. ng/mL (NEG <=200); CANNABINOID, URINE NEG. ng/mL (NEG <=50); COCAINE, URINE NEG. ng/mL (NEG <=300); OPIATE, URINE NEG. ng/mL (NEG <=2000); PHENCYCLIDINE SCREEN,URINE NEG. ng/mL (NEG <=25)
[2017-08-09 01:39] LABS: ANION GAP 20.2 (8-16); CARBON DIOXIDE 22.1 mmol/L (21-32); POTASSIUM 4.3 mmol/L (3.5-5.1)
[2017-08-09 01:40] LABS: ALBUMIN 3.6 g/dL (3.4-5.0); TOTAL BILIRUBIN 0.7 mg/dL (0.0-1.0)
[2017-08-09 01:43] LABS: CREATININE 6.6 mg/dL (0.7-1.3)
[2017-08-09] MEDS ORDERED: PIPERACILLIN/TAZOBACTAM 3.375 GM in DEXTROSE 5% 50 ML IV ONE (01:50)
--- NOTE | 2017-08-09 01:50 | NUR ---
Lab called with critical values: Glucose 689 BUN 65 Creatinine 6.[address] luo notified immediately
[2017-08-09 01:53] LABS: RBC,URINE 0-5 (RARE) /HPF (0-5); WBC,URINE 0-5 (RARE) /HPF (0-5)
[2017-08-09] MEDS ORDERED: PIPERACILLIN/TAZOBACTAM 3.375 GM VIAL IV ONE (01:54)
[2017-08-09] MEDS ORDERED: INSULIN REGULAR, HUMAN 100 UNIT in NACL 0.9% 100 ML IV ONE ×2 (01:55)
[2017-08-09] MEDS ORDERED: INSULIN REGULAR, HUMAN 100 UNIT/ML VIAL IVP ONE (01:55)
[2017-08-09] MEDS ORDERED: ACYCLOVIR 700 MG in NACL 0.9% 100 ML IV ONE (02:30)
[2017-08-09] MEDS ORDERED: cefTRIAXone 2,000 MG in DEXTROSE 5% 100 ML IV ONE (02:30)
[2017-08-09] MEDS ORDERED: VANCOMYCIN 1,000 MG in DEXTROSE 5% 250 ML IV ONE (02:30)
[2017-08-09] MEDS ORDERED: NACL 0.9% 1,500 ML IV ONE (03:05)
[2017-08-09] MEDS ORDERED: cefTRIAXone 2,000 MG VIAL ONE (03:22)
[2017-08-09] MEDS ORDERED: ACYCLOVIR 500 MG VIAL IV ONE (03:22)
[2017-08-09] MEDS ORDERED: LORazepam 2 MG/ML VIAL ONE ×2 (03:24→04:05)
[2017-08-09] MEDS ORDERED: ACETAMINOPHEN 650 MG SUPP RC ONE (03:30)
--- NOTE | 2017-08-09 03:59 | NUR ---
PER DR. RODRIGUEZ, KAL TO DRAW LABS FROM LEFT ARM
--- NOTE | 2017-08-09 04:00 | NUR ---
Restraints removed, circulation intact, skin intact, ER MD aware. Pt resting with eyes closed. Contininue to monitor.
--- NOTE | 2017-08-09 04:30 | NUR ---
Lumbar puncture performed by Dr Wilson. Assisted by Brandon Simpson. Pt cooperative and placed in left lateral recumbant positioned and remained still while secured by Nurse. Pt placed supine and staff instructed not to elevate HOB for 6 hrs. Pt tolerated procedure well.
[2017-08-09] MEDS ORDERED: CLON0.2T43 PO (04:35)
[2017-08-09] MEDS ORDERED: AMLO10TA PO (04:35)
[2017-08-09] MEDS ORDERED: PHO667 PO (04:35)
[2017-08-09] MEDS ORDERED: ATOR20TA PO (04:35)
[2017-08-09] MEDS ORDERED: METO50TE2 PO (04:35)
[2017-08-09] MEDS ORDERED: LIDOCAINE MPF 1% - **ER/OR** 5 ML ONE (04:59)
[2017-08-09] MEDS ORDERED: INSULIN REGULAR, HUMAN 100 UNIT in NACL 0.9% 100 ML IV SCH ×2 (05:40)
[2017-08-09] MEDS ORDERED: NACL 0.9% 1,000 ML IV SCH (05:47)
[2017-08-09] MEDS ORDERED: VANCOMYCIN PER PHARMACY MC PRN ×2 (06:10→11:00)
[2017-08-09 06:34] LABS: CSF GLUCOSE 326 mg/dL (40-70); CSF PROTEIN 163.6 mg/dL (15-45)
--- NOTE | 2017-08-09 06:35 | NUR ---
Pt escorted to floor via gurradha by Brandon HACKETT and Ihsan DAVIS
[2017-08-09] MEDS ORDERED: VANCOMYCIN 1GM/DEXT 5% PREMIX 200 ML IV SCH ×2 (06:45→08:30)
--- NOTE | 2017-08-09 06:47 | NUR ---
Report given and Care tarnsfered to Gayathri HACKETT
--- NOTE | 2017-08-09 06:50 | NUR ---
PT ARRIVED IN THE UNIT VIA GURNEY. PT NOTED TO BE SHAKING AND OCCASIONALLY OPENS EYES. SINUS TACH ON MONITOR AT THIS TIME. VS STABLE. UNABLE TO FOLLOW COMMAND. PT ON OXYGEN AT 3L VIA NC. NO SOB NOTED. NO SIGNS OF DISTRESS. PULSES PALPABLE. ABDOMEN ROUND AND NONDISTENDED. RECEIVED PT ON INSULIN DRIP AT 2ML/HR. NO SKIN ISSUES NOTED. PT HAS PERIPHERAL LINES OF 18G ON RIGHT FOREARM, AND 18G ON RIGHT EJ. LINES ARE PATENT AND INTACT. PER REPORT, AVOID MANIPULATING OR PUTTING IV ON LEFT ARM DUE TO PT IS TO HAVE DIALYSIS ACCESS NEXT WEEK. WILL CONTINUE TO MONITOR PT.
--- NOTE | 2017-08-09 07:00 | NUR ---
RECEIVED REPORT FROM LUCIA GARCIA RN. PT IN BED SHAKING. ST ON MONITOR. PT UNABLE TO FOLLOW COMMANDS. SPONTANEOUS EYES OPENING. SKIN DRY AND WARM TO TOUCH. PUPILS NON-REACTIVE TO LIGHT. LUNGS SOUND CLEAR ON AUSCULTATION. RIGHT EXTERNAL JUGULAR IV SITE INTACT. RIGHT UPPER CHEST JACIEL CATH COVERED WITH DRESSING. PERIPHERAL LINE NOTED ON RIGHT FOREARM. INTACT. INSULIN DRIP RUNNING AT 1 UNIT/HR. EDEMATOUS RIGHT UPPER EXTREMITY. ABDOMEN FIRM, ROUND AND NON-TENDER. ACTIVE BOWEL SOUND PRESENT ON AUSCULTATION. EDEMATOUS BLE. NOT OLD SCRATCHES SCARS NOTED ON LEFT LOWER LEGS. ULCERS PRESENT ON BOTH FOOT, SPECIALLY TOES AND FINGERS. DIABETIC ULCER UNDER LEFT GREAT TOE. KEPT HOB FLAT. BED IN LOW POSITION, LOCKED. WILL CONTINUE TO MONITOR.
--- NOTE | 2017-08-09 07:00 | NUR ---
REPORT GIVEN TO LEW ANTONY FOR CONTINUITY OF CARE. PT IN STABLE CONDITION AT THIS TIME.
--- NOTE | 2017-08-09 08:00 | NUR ---
BODY TEMPERATURE WAS 100.5 DEGREE F. EXTRA CLOTHES REMOVED. PT ON CONTINUOUS COLD COMPRESS. AT BEDSIDE.
--- NOTE | 2017-08-09 08:54 | NUR ---
PATIENT HAS BEEN SCREENED AND CATEGORIZED HIGH NUTRITION RISK. PATIENT WILL BE SEEN WITHIN 1-2 DAYS OF ADMISSION. 08/09/18-08/10/[address]
--- NOTE | 2017-08-09 09:12 | NUR ---
BS 89. NOTIFIED CHARGE NURSE. STOPPED INSULIN DRIP.
--- NOTE | 2017-08-09 09:12 | NUR ---
BODY TEMPERATURE REDUCED TO 98.9 DEGREE F.
--- NOTE | 2017-08-09 09:32 | NUR ---
PT SLEEPING IN BED AT THIS TIME. SHAKY BODY. ST ON MONITOR. RR 19, SPO2 96%. BP 209/82. WILL CONTINUE TO MONITOR.
--- NOTE | 2017-08-09 09:38 | NUR ---
CALLED DR RUIZ FOR HIGH BP . WAITING FOR CALL BACK.
--- NOTE | 2017-08-09 09:38 | NUR ---
AT [address] RUIZ FOR HIGH BP. WAITING FOR CALL BACK.
--- NOTE | 2017-08-09 09:44 | NUR ---
RECEIVED CALL FROM DR. COYNE. NOTED ABOUT HIGH BP. WILL FOLLOW UP ON ORDER.
[2017-08-09] MEDS ORDERED: LABETALOL 100 MG/20 ML VIAL ONE (10:27)
--- NOTE | 2017-08-09 10:33 | NUR ---
BS 130. NOTIFIED CHARGE NURSE. WILL CONTINUE TO MONITOR.
[2017-08-09] MEDS ORDERED: DEXTROSE 50% 50 ML SYR IVP PRN (10:50)
--- NOTE | 2017-08-09 10:51 | NUR ---
PT SEEN BY DR. RUIZ. UPDATED PT CONDITION. ORDERED TO STOP INSULIN DRIP. WILL CONTINUE TO FOLLOW UP ORDER.
--- NOTE | 2017-08-09 10:52 | NUR ---
ADMINISTERED LABETOLOL FOR HIGH BP. PER ORDER. WILL CONTINUE TO MONITOR.
[2017-08-09] MEDS ORDERED: ACYCLOVIR IV PER PHARMACY MC PRN (11:00)
--- NOTE | 2017-08-09 11:37 | NUR ---
BP 148/86. PT SLEEPING IN BED. HR 78, RR 22 SPO2 95%. NO ACUTE RESPIRATORY DISTRESS NOTED. NO CHANGE IN LOC. WILL CONTINUE TO MONITOR.
[2017-08-09] MEDS: INSULIN LISPRO SLIDING SCALE 100 UNITS/ML VIAL SUBQ PRN (12:46)
[2017-08-09] MEDS: BLOOD GLUCOSE MONITORING 1 DEV DEV FS SCH ×3 (12:47→20:31)
--- NOTE | 2017-08-09 12:53 | NUR ---
CM NOTE INITIAL REVIEW FAXED TO [facility] [phone] PORTER # [phone]
--- NOTE | 2017-08-09 12:57 | NUR ---
PHLEBETOMIST AT BEDSIDE FOR BLOOD CULTURE.
[2017-08-09] MEDS ORDERED: NACL 0.9% IV SCH (13:00)
[2017-08-09] MEDS ORDERED: PIPER/TAZO 2.25GM/D5W PREMIX 50 ML IV SCH (13:00)
[2017-08-09] MEDS ORDERED: PIPERACILLIN/TAZOBACTAM 2.25 GM in DEXTROSE 5% 50 ML IV SCH (13:00)
[2017-08-09] MEDS ORDERED: ACYCLOVIR IV SCH (13:00)
[2017-08-09] MEDS: LORazepam 2 MG/ML VIAL IM/IVP PRN ×2 (13:02→23:38)
[2017-08-09] MEDS: hydrALAZINE 20 MG/ML VIAL IVP PRN ×3 (13:09→23:04)
--- NOTE | 2017-08-09 13:12 | NUR ---
PT WAS AGITATED AND HAD HIGH BP 206/95. ADMINISTERED ATIVAN AND HYDRALAZINE PER ORDER. WILL CONTINUE TO MONITOR PT .
--- NOTE | 2017-08-09 13:32 | NUR ---
PT.MOVING AROUND AND KEEPING HI HAND TO HIS HEAD HEART RATE IS UP B/P IS UP MEDICATION GIVEN ORDERED
[2017-08-09] MEDS: MORPHINE SULFATE 2 MG/ML SYR IVP PRN ×2 (13:54→20:30)
--- NOTE | 2017-08-09 14:10 | NUR ---
PT AGITATED. TURNED OFF THE LIGHT. PT KEPT PT CLEAN AND DRY. ON CONTINUOUS MONITORING.
--- NOTE | 2017-08-09 14:24 | NUR ---
PT CALM DOWN. SLEEPING AT THIS TIME.
--- NOTE | 2017-08-09 14:55 | NUR ---
AT 1434 PT TAKEN TO RADIOLOGY FOR CAT SCAN OF ABDOMEN AND PELVIS SAFELY IN STABLE CONDITION.
--- NOTE | 2017-08-09 14:57 | NUR ---
AT 1444 CAME NICOLA FROM RADIOLOGY SAFELY, ON STABLE CONDITION.
--- NOTE | 2017-08-09 14:58 | NUR ---
NO AGITATION. PT SLEEPING IN BED AT THIS TIME.
[2017-08-09] MEDS ORDERED: cefTRIAXone 2,000 MG in DEXTROSE 5% 100 ML IV SCH (15:00)
--- NOTE | 2017-08-09 15:23 | NUR ---
PT SLEEPING IN BED COMFORTABLY. AT BEDSIDE. UPDATED PT CONDITION.
[2017-08-09] MEDS ORDERED: cloNIDine-TTS2 0.2 MG/24 HR 1 EA PATCH TD SCH (15:41)
--- NOTE | 2017-08-09 15:54 | NUR ---
PT SEEN BY DR. AMATO. WILL FOLLOW UP ON ORDER.
--- NOTE | 2017-08-09 15:57 | NUR ---
BP 235/107. APPLIED CLONIDINE PATCH TO LEFT UPPER CHEST PER ORDER.
[2017-08-09] MEDS: LABETALOL 100 MG/20 ML VIAL IVP PRN ×2 (17:41→21:58)
--- NOTE | 2017-08-09 17:48 | NUR ---
LABETALOL ADMINISTERED FOR HIGH BP. CHARGE NURSE MADE AWARE. PT ON CONTINUOUS MONITORING. NO ACUTE DISTRESS. NO CHANGE IN LOC. WILL CONTINUE TO MONITOR. FAMILY AT BEDSIDE.
--- NOTE | 2017-08-09 18:54 | NUR ---
PT SLEEPING IN BED. NO RESPIRATORY DISTRESS. NO CHANGE IN LOC NOTED. BP 221/148. CHARGE NURSE MADE AWARE. ADMINISTERED HYDRALAZINE PER ORDER. WILL CONTINUE TO MONITOR.
--- NOTE | 2017-08-09 19:28 | NUR ---
ENDORSED TO NOC SHIFT RN FOR CONTINUITY OF CARE. PT ON STABLE CONDITION.
--- NOTE | 2017-08-09 19:30 | NUR ---
RECEIVED PT FROM AM NURSE. PT BEING DIALYSED @ THIS TIME, BP ELEVATED, WILL CONTINUE TO OBSERVE.
--- NOTE | 2017-08-09 20:00 | NUR ---
PT CONFUSED, MUMBLING INCOMPREHENSIBLE SOUNDS, 3+ PERRL. UNABLE TO FOLLOW COMMANDS. SR 90S BP ELEVATED 200S. +2 PULSES BUE, BLE. EDEMA NOTED TO R ARM. LUNGS SOUNDS DIMINISHED. O2 VIA NC 4 L. + BOWEL SOUNDS IN ALL 4 QUADRANTS. NPO @ THIS TIME. PT ANURIC PER FAMILY. SKIN BREAKDOWN NOTED TO LOWER EXTREMITIES. PERIPHERAL IV NOTED TO REJ, R FA. WILL CONTINUE TO OBSERVE.
--- NOTE | 2017-08-09 21:18 | NUR ---
DR. ANDERSON PRESENT. UPDATED FAMILY OF PLAN OF CARE. NEW ORDERS RECEIVED, WILL CARRY OUT ORDERS. ISOLATION PRECAUTIONS DISCONTINUED PER MD WILL CONTINUE TO OBSERVE.
[2017-08-09] MEDS ORDERED: FLUCONAZOLE 400 MG/NS PREMIX 200 ML IV SCH (21:45)
[2017-08-09] MEDS ORDERED: MEROPENEM 500 MG in NACL 0.9% 50 ML IV SCH (23:00)
[2017-08-09] MEDS ORDERED: NS IV ONE (23:16)
[2017-08-09] MEDS ORDERED: FLUCONAZOLE IV ONE (23:16)
[2017-08-09] MEDS ORDERED: MEROPENEM 500 MG VIAL IV ONE (23:17)
--- NOTE | 2017-08-09 23:40 | NUR ---
PT AGITATED, FLAILING ARMS, LEGS. UNABLE TO FOLLOW COMMANDS. MOVING LEGS OUT OF BED. PRN ATIVAN GIVEN. WILL CONTINUE TO OBSERVE.
[2017-08-10] VITALS (15 sets, daily range): BP systolic 103–215; BP diastolic 58–98
--- NOTE | 2017-08-10 | NUR ---
PT CALM RELAXED IN BED, NO S/S OF ACUTE DISTRESS NOTED. WILL CONTINUE TO OBSERVE.
[2017-08-10] MEDS ORDERED: THERAHONEY GEL 42.5 GM TP PRN (00:20)
[2017-08-10] MEDS: LABETALOL 100 MG/20 ML VIAL IVP PRN ×4 (01:04→21:38)
--- NOTE | 2017-08-10 02:45 | NUR ---
BP ELEVATED, PT UNABLE TO COMMUNICATE NEEDS; NO URINE OUTPUT NOTED. NO OTHER S/S OF ACUTE DISTRESS NOTED. WILL CONTINUE TO OBSERVE.
[2017-08-10] MEDS: hydrALAZINE 20 MG/ML VIAL IVP PRN ×3 (03:41→14:25)
[2017-08-10] MEDS: MORPHINE SULFATE 2 MG/ML SYR IVP PRN ×2 (04:17→11:24)
--- NOTE | 2017-08-10 04:40 | NUR ---
PATIENT'S BP STILL HIGH 180->200 SYSTOLIC EVEN ANTI HTN IV MEDS WAS GIVEN; PAGED DR. LUCIA TO REFER PATIENT; WITH NEW ORDERS CARRIED OUT.
[2017-08-10] MEDS ORDERED: LABETALOL 100 MG/20 ML VIAL IV SCH (05:00)
[2017-08-10 05:07] LABS: BASOPHILS % (AUTO) 0.6 % (0.0-2.0); EOSINOPHILS # (AUTO) 0.1 K/uL (0-0.4); EOSINOPHILS % (AUTO) 0.9 % (0.0-4.0); HEMATOCRIT 29.7 % (36-52); HEMOGLOBIN 9.5 g/dL (12.0-18.0); LYMPHOCYTES # (AUTO) 0.8 K/uL (2.0-11.5); LYMPHOCYTES % (AUTO) 11.4 % (20.5-51.1); MEAN CORPUSCULAR HEMOGLOBIN 27 pg (27-31); MEAN CORPUSCULAR HGB CONC 32 g/dL (33-37); MEAN CORPUSCULAR VOLUME 85 fL (80-94); MONOCYTES # (AUTO) 0.6 K/uL (0.8-1.0); MONOCYTES % (AUTO) 9.5 % (1.7-9.3); NEUTROPHILS # (AUTO) 5.2 K/uL (1.8-7.7); NEUTROPHILS % (AUTO) 77.6 % (42.2-75.2); PLATELET COUNT (AUTO) 169 K/uL (140-450); RED BLOOD CELL COUNT(AUTO) 3.49 MIL/uL (4.20-6.10); WHITE BLOOD COUNT (AUTO) 6.7 K/uL (4.8-10.8)
[2017-08-10] MEDS ORDERED: LISINOPRIL 10 MG TAB ONE (05:21)
[2017-08-10] MEDS: LISINOPRIL 20 MG TAB PO SCH (05:21)
[2017-08-10 05:26] LABS: ACETONE, SERUM NEGATIVE (NEGATIVE)
--- NOTE | 2017-08-10 05:59 | NUR ---
PATIENT'S ISABELA CALLED, UPDATED ON PATIENT'S MEDICAL CONDITION AND SHE SAID TO INCLUDE HER DAUGHTER JOHANA ONE OF THE CONTACTS TOO; WILL INFORM ADMISSION DEPT. TO INCLUDE THE DAUGHTER IN THE FACE SHEET.
[2017-08-10 06:17] LABS: MAGNESIUM 1.6 mg/dL (1.8-2.4); PHOSPHORUS 4.6 mg/dL (2.5-4.9)
[2017-08-10 06:19] LABS: ALBUMIN 2.9 g/dL (3.4-5.0); ANION GAP 14.4 (8-16); ASPARTATE AMINOTRANSFERASE 44 U/L (15-37); CARBON DIOXIDE 25.7 mmol/L (21-32); CHLORIDE 102 mmol/L (98-107); GFR ARICAN-AMERICAN 18 mL/min (>90); GLUCOSE 116 mg/dL (74-106); LIPASE 77 U/L (73-393); POTASSIUM 4.1 mmol/L (3.5-5.1); SODIUM SERUM 138 mmol/L (136-145); TOTAL BILIRUBIN 0.6 mg/dL (0.0-1.0); UREA NITROGEN, BLOOD 36 mg/dL (7-18)
--- NOTE | 2017-08-10 06:20 | NUR ---
PT AGITATED IN BED, DISORIENTED, DOES NOT FOLLOW COMMANDS; TRIED TO REORIENT PT. INFORMED HIM OF INVASIVE LINES AND MONITOR LINES NEEDED FOR HOSPITAL CARE IN ICU. PRN ATIVAN NEEDED FOR AGITATION. WILL GIVE MED. WILL CONTINUE TO MONITOR.
[2017-08-10] MEDS: LORazepam 2 MG/ML VIAL IM/IVP PRN ×2 (06:24→21:58)
[2017-08-10 06:25] LABS: CREATININE 4.3 mg/dL (0.7-1.3)
--- NOTE | 2017-08-10 07:25 | NUR ---
RECEIVED BEDSIDE REPORT FROM TOOL MAKER RNERON. PATIENT OBSERVED LAYING IN BED IN SEMI FOWLERS IN LOWEST POSSIBLE POSITION. PATIENT IS AAOX1, UNABLE TO FOLLOW SIMPLE COMMANDS. BILATERAL LUNG SOUNDS ARE CLEAR AND SYMMETRICAL, PATIENT IS ON NASAL CANNULA AT 2L. S1 AND S2 HEART SOUNDS HEARD, CAP REFILL LESS THAN 3 SECS. PATIENT HAS NG TUBE TO LEFT NARES, ACTIVE BOWEL SOUNDS HEARD IN ALL FOUR QUADS. PATIENT SKIN IS WARM AND DRY, NON-INTACT, PATIENT HAS DIABETIC WOUND LEFT TOE. PATIENT HAS DIALYSIS ACCESS, RIGHT UPPER CHEST, ASYMPTOMATIC, PATENT, INTACT. PATIENT HAS PERIPHERAL LINE IN RIGHT UPPER ARM, ASYMPTOMATIC, PATENT, INTACT. NO SIGNS OF DISTRESS AT THIS TIME, CALL LIGHT WITHIN REACH, WILL CONTINUE TO MONITOR.
--- NOTE | 2017-08-10 07:30 | NUR ---
REPORT GIVEN TO BETSY, RN FOR CONTINUITY OF CARE. PT STABLE AT THIS TIME.
--- NOTE | 2017-08-10 07:45 | NUR ---
CALLED ADMITTING TO INFORM OF THE PATIENT'S REQUEST TO INPUT DAUGHTER'S NAME JOHANA TO GET MEDICAL INFORMATION REGARDING PATIENT'S CONDITION. FACE SHEET UPDATED BY ADMITTING PERSONNEL.
[2017-08-10] MEDS: BLOOD GLUCOSE MONITORING 1 DEV DEV FS SCH ×4 (08:22→20:44)
[2017-08-10] MEDS ORDERED: MAG SULF 2000 MG/WATER PREMIX 100 ML IV SCH (08:30)
[2017-08-10] MEDS ORDERED: THERAHONEY GEL 42.5 GM TP SCH (09:00)
--- NOTE | 2017-08-10 09:05 | NUR ---
X-RAY TECH AT BEDSIDE, NO SIGNS OF DISTRESS NOTED, WILL CONTINUE TO MONITOR
[2017-08-10] MEDS: MAG SULF 2000 MG/WATER PREMIX 50 ML IV SCH ×2 (09:32→11:19)
[2017-08-10] MEDS: MEROPENEM 500 MG in NACL 0.9% 50 ML IV SCH ×2 (09:34→20:37)
--- NOTE | 2017-08-10 10:10 | NUR ---
DR HERNANDEZ CALLED, UPDATED OF PATIENT'S STATUS. NO ORDERS FOR DIALYSIS TODAY.
--- NOTE | 2017-08-10 10:25 | NUR ---
PATIENT'S AT BEDSIDE, UPDATED ON PATIENT'S CONDITION. NO SIGNS OF DISTRESS NOTED, WILL CONTINUE TO MONITOR
[2017-08-10] MEDS ORDERED: VANCOMYCIN 1GM/DEXT 5% PREMIX 200 ML IV SCH (10:30)
--- NOTE | 2017-08-10 11:05 | NUR ---
IN TO SEE PATIENT, UPDATED ON PATIENT'S CONDITION, UPDATED PATIENT'S . WILL FOLLOW UP ON ANY ORDERS.
--- NOTE | 2017-08-10 12:45 | NUR ---
WOUND CARE EVALUATION NOTES: REASON FOR EVALUATION: LEFT HALLUX DIABETIC ULCER SKIN ASSESSMENT DONE ON THIS 66 Y/O MALE PATIENT ADMITTED TO [facility], WITH INITIAL DIAGNOSIS OF FEVER AND AND ALOC. PAST MEDICAL HISTORY INCLUDE HLD, DIABETIC NEPHROPATHY, DIABETES, HYPERTENSION AND ESRD OH HD. ALL ABOVE INFORMATION WAS OBTAINED FROM THE ADMISSION H&P. LABS ARE WBC 6.7, H/H 9.5/29.7, GLUCOSE 116, ALBUMIN 2.9. SKIN WARM TO TOUCH , LUE ERYTHEMA AND RUE WITH EDEMA, BLE NO EDEMA, NO HAIR GROWTH AND BILATERAL PEDAL PULSES PRESENT. ALL IV AND HD CATH. IN PLACE WITH DRESSING DRY AND INTACT. PT. IS INCONTINENT BOWEL AND BLADDER, KEEP DRY AND CLEAN AT ALL TIMES. PLAN OF CARE DISCUSSED WITH PRIMARY RN. INTEGUMENTARY: -RUE +1 EDEMA -LUE ERYTHEMA -RIGHT ABDOMEN LONG DRY SCRATCH SADI -BLE (SHINS) REDNESS -R/L TOES INTERSPACES DRYNESS -RIGHT 5TH PROXIMAL PHALANGES LOOSE ROM WHEN TOUCHED, NO REDNESS, NO SWELLING -LEFT TIP OF HALLUX DIABETIC ULCER BLACK ESCHAR UN-STAGEABLE 1X1.5CM GRIFFIN WOUND DRY WITH LIGHT BROWN COLOR -LEFT HALLUX PLANTAR AREA DIABETIC ULCER BLACK ESCHAR UN-STAGEABLE 2.5X1.5CM GRIFFIN WOUND DRY WITH LIGHT BROWN COLOR -RIGHT LATERAL FOOT MULTIPLE DRY SCABS WITH LARGEST MEASURE 1.5X0.5CM AND SMALLEST 0.5X0.5CM, AREAS DRY , SURROUNDING SKIN PALE PINK -BILATERAL HEELS BLANCHABLE REDNESS RECOMMENDATIONS: -SENIOR PRICING ANALYST CONSULT -APPLY SKIN PREP TO BILATERAL HEELS AND BLE (SHINS) BIDWC AND LEAVE IT OPEN TO AIR -PAINT RIGHT LATERAL FOOT SCABS, LEFT HALLUX (TIP AREA AND PLANTAR AREA )ESCHAR TISSUE WITH BETADINE SOLUTIONS QD AND ALEX -ELEVATED RUE WITH A PILLOW. -TURN AND REPOSITION PATIENT Q2H TO AND TO OFFLOAD BILATERAL HEELS -ASSESS AND MONITOR SKIN CONDITION DURING POSITION CHANGE, PLEASE PAY ATTENTION TO HEELS -OFFLOAD BILATERAL HEELS BY PLACING PILLOWS UNDER CALVES AT ALL TIMES, UNLESS OTHERWISE CONTRAINDICATED -PRESSURE REDISTRIBUTION SURFACE THERAPY -KEEP SKIN CLEAN AND DRY AT ALL TIMES. RECOMMENDATIONS DISCUSSED WITH PRIMARY RN WILL FOLLOW UP PATIENT Q 7 -10 DAYS AND PRN. PLEASE CONTACT WOUND CARE NURSE FOR ANY CONCERNS AND CHANGES IN WOUND CONDITION
--- NOTE | 2017-08-10 12:48 | NUR ---
ROD STRAIGHTENER, SEN IN TO SEE PATIENT. WILL FOLLOW UP ON ANY ORDERS
--- NOTE | 2017-08-10 14:20 | NUR ---
PT IS VOMITING WITH SMALL AMOUNT OF YELLOW GREENISH EMESIS, AND COUGHING OUT NGT. ZOFRAN GIVEN.
[2017-08-10] MEDS: ONDANSETRON 4 MG/2 ML VIAL IVP PRN (14:24)
--- NOTE | 2017-08-10 15:14 | NUR ---
08/10/2017 RD INITIAL ASSESSMENT COMPLETED PLEASE REFER TO NUTRITION ASSESSMENT UNDER CARE ACTIVITY FOR ESTIMATED NUTRITIONAL NEEDS. CONTINUE NPO, ADVANCE TO REGULAR TEXTURES MEDICALLY APPROPRIATE CONSIDER RENAL/DIABETIC DIETARY RESTRICTIONS ONCE DIET IS ADVANCED CONSIDER NUTRITION SUPPLEMENTATION (NOVASOURCE RENAL) FOR INCREASED ENERGY/KCALS APPROPRIATE. RD TO FOLLOW-UP IN 2-3 DAYS PATIENT IS HIGH RISK. SB ANG RD Addendum: 08/10/17 at [address] SPOKE WITH PAWEL REGARDING RECOMMENDATION FOR NUTRITIONAL SUPPLEMENT ONCE DIET ADVANCED, RN WROTE IT DOWN TO DISC WITH DOCTOR BRIGETTE
--- NOTE | 2017-08-10 15:16 | NUR ---
CM NOTE CONCURRENT REVIEW FAXED TO [facility] [phone] P[facility]TER # [phone]
--- NOTE | 2017-08-10 18:19 | NUR ---
STAR ARCHULETA MADE AWARE OF DIALYSIS SCHEDULE FOR TOMORROW 08/11/17.
--- NOTE | 2017-08-10 19:18 | NUR ---
REPORT GIVEN TO BRICK CHIMNEY BUILDER RN, ERON, AT BEDSIDE FOR CONTINUITY OF CARE. NO SIGNS OF DISTRESS AT THIS TIME.
--- NOTE | 2017-08-10 19:30 | NUR ---
RECEIVED REPORT FROM MORNING RN FOR CONTINUITY OF CARE. VS STABLE AT THIS TIME. BP SLIGHTLY HIGH. SINUS RHYTHM ON MONITOR. PT AFEBRILE. FLACC 0. PT ON OXYGEN AT 2L/MIN VIA NC. LUNG SOUNDS DIMINISHED. NO SIGNS OF RESPIRATORY DISTRESS NOTED. S1+S2 HEARD. PULSES ARE PALPABLE IN EXTREMITIES. NGT IN PLACE. CHECKED PLACEMENT. ABDOMEN ROUND AND BOWEL SOUNDS ACTIVE IN ALL QUADRANTS. PT CURRENTLY HAS NO BM. NO URINE OUTPUT CURRENTLY. PT HAS RIGHT EJ 20G PERIPHERAL IV. RIGHT UPPER ARM IV LINE REMOVED. LINE PATENT AND ASYMPTOMATIC. BED AT LOW POSSIBLE POSITION. CALL LIGHT WITHIN REACH. ALL SAFETY PRECAUTION IN PLACE. WILL CONTINUE TO MONITOR PT.
--- NOTE | 2017-08-10 20:50 | NUR ---
SCHEDULED MEDICATIONS ADMINISTERED. PT TOLERATED WELL. BG CHECKED, NO INSULIN COVERAGE NEEDED. WILL CONTINUE TO MONITOR PT.
--- NOTE | 2017-08-10 23:45 | NUR ---
VS STABLE AT THIS TIME. NO CHANGE IN CONDITION. PT LAYING IN COMFORTABLY AND ASLEEP. ALL SAFETY PRECAUTIONS ARE IN PLACE. WILL CONTINUE TO MONITOR PT.
[2017-08-11] VITALS (10 sets, daily range): BP systolic 128–167; BP diastolic 59–82
--- NOTE | 2017-08-11 01:00 | NUR ---
PT CURRENTLY ASLEEP. LAYING COMFORTABLY IN BED. WILL CONTINUE TO MONITOR
[2017-08-11] MEDS: hydrALAZINE 20 MG/ML VIAL IVP PRN ×5 (01:29→23:29)
[2017-08-11] MEDS: MORPHINE SULFATE 2 MG/ML SYR IVP PRN ×2 (02:05→07:42)
--- NOTE | 2017-08-11 02:32 | NUR ---
VS STABLE AT THIS TIME. NO CHANGE IN CONDITION CURRENTLY. PT CURRENTLY ASLEEP. DOES NOT APPEAR TO BE IN ANY PAIN. WILL CONTINUE TO MONITOR PT.
--- NOTE | 2017-08-11 04:15 | NUR ---
PT CLEANED AND LINENS CHANGED. TOLERATED BEING TURNED FAIRLY. NO BM NOTED. NO SIGNS OF DISTRESS OBSERVED. NO CHANGE IN CONDITION AT THIS TIME. WILL CONTINUE TO MONITOR PT.
[2017-08-11] MEDS: LORazepam 2 MG/ML VIAL IM/IVP PRN ×3 (04:55→17:16)
[2017-08-11] MEDS: BLOOD GLUCOSE MONITORING 1 DEV DEV FS SCH ×4 (06:37→21:09)
--- NOTE | 2017-08-11 07:18 | NUR ---
REPORT GIVEN TO MORNING RN FOR CONTINUITY OF CARE. PT IN STABLE CONDITION AT THIS TIME.
--- NOTE | 2017-08-11 07:20 | NUR ---
RECEIVED REPORT FROM BILLBOARD INSTALLER RN. PT IS ASLEEP. AFEBRILE. NORMAL SINUS RHYTHM ON MONITOR. S1 +S2 HEARD. ON O2 AT 2 LPM/NC. LUNGS SOUND DIMINISHED. BREATHING EVEN AND UNLABORED. NO SOB OR DISTRESS NOTED. PERIPHERAL IV G 20 TO RIGHT EJ ASYMPTOMATIC, PATENT AND INTACT. ABDOMEN SOFT, NONTENDER, NON DISTENDED W/ ACTIVE BOWEL SOUNDS. PT IS CURRENTLY NPO. SKIN IS DRY AND WARM TO TOUCH. PULSES PALPABLE TO ALL EXTREMITIES. DIABETIC ULCER TO LEFT GREAT TOE NOTED. HOB 30 DEGREES, BED IN LOWEST POSITION AND CALL LIGHT WITHIN REACH. WILL CONTINUE TO MONITOR.
--- NOTE | 2017-08-11 07:30 | NUR ---
NGT PLACEMENT CONFIRMED. 10 ML OF GASTRIC RESIDUALS NOTED AT THIS TIME.
--- NOTE | 2017-08-11 07:50 | NUR ---
RECEIVED A CALL FROM , ISABELA, AND UPDATES GIVEN ON PT.
[2017-08-11] MEDS: MEROPENEM 500 MG in NACL 0.9% 50 ML IV SCH ×2 (08:23→21:08)
[2017-08-11] MEDS: EPOETIN ALFA 10,000 UNITS/ML VIAL SUBQ SCH (08:28)
[2017-08-11] MEDS: VIT-B COMP/VIT-C/FOLIC ACID 1 TAB PO SCH (08:30)
[2017-08-11] MEDS: LISINOPRIL 20 MG TAB PO SCH (08:43)
--- NOTE | 2017-08-11 08:50 | NUR ---
CHEST X-RAY TAKEN. INTERMITTENT NON-PRODUCTIVE COUGH NOTED. VITAL SIGNS STABLE. WILL CONTINUE TO MONITOR.
[2017-08-11] MEDS ORDERED: LABETALOL 100 MG/20 ML VIAL IV PRN (09:00)
--- NOTE | 2017-08-11 09:07 | NUR ---
MEDICATIONS ADMINISTERED. PT TOLERATED WELL.
[2017-08-11 09:51] LABS: BASOPHILS # (AUTO) 0.1 K/uL (0.00-0.22); BASOPHILS % (AUTO) 0.6 % (0.0-2.0); EOSINOPHILS # (AUTO) 0.1 K/uL (0-0.4); EOSINOPHILS % (AUTO) 0.8 % (0.0-4.0); HEMATOCRIT 28.5 % (36-52); HEMOGLOBIN 9.5 g/dL (12.0-18.0); LYMPHOCYTES # (AUTO) 1.3 K/uL (2.0-11.5); LYMPHOCYTES % (AUTO) 14.4 % (20.5-51.1); MEAN CORPUSCULAR HEMOGLOBIN 29 pg (27-31); MEAN CORPUSCULAR HGB CONC 34 g/dL (33-37); MEAN CORPUSCULAR VOLUME 86 fL (80-94); MONOCYTES # (AUTO) 0.9 K/uL (0.8-1.0); MONOCYTES % (AUTO) 10.3 % (1.7-9.3); NEUTROPHILS # (AUTO) 6.6 K/uL (1.8-7.7); NEUTROPHILS % (AUTO) 73.9 % (42.2-75.2); PLATELET COUNT (AUTO) 191 K/uL (140-450); RED BLOOD CELL COUNT(AUTO) 3.32 MIL/uL (4.20-6.10)
[2017-08-11 10:09] LABS: ANION GAP 22.3 (8-16); CARBON DIOXIDE 21.4 mmol/L (21-32); POTASSIUM 4.7 mmol/L (3.5-5.1)
[2017-08-11 10:13] LABS: CREATININE 6.6 mg/dL (0.7-1.3)
--- NOTE | 2017-08-11 12:00 | NUR ---
PRN HYDRALAZINE GIVEN FOR HIGH BLOOD PRESSURE. WILL CONTINUE TO MONITOR.
[2017-08-11] MEDS: NACL 0.9% IRR 250 ML BOTTLE IR SCH (12:48)
--- NOTE | 2017-08-11 14:17 | NUR ---
PT'S , ISABELA AT BEDSIDE. UPDATES GIVEN ON PT. PT IS RESTING COMFORTABLY AT THIS TIME. VITAL SIGNS STABLE. SAFETY MEASURES ENSURED. WILL CONTINUE TO MONITOR.
--- NOTE | 2017-08-11 14:45 | NUR ---
HEMODIALYSIS STARTED. VITAL SIGNS STABLE. WILL CONTINUE TO MONITOR.
--- NOTE | 2017-08-11 14:59 | NUR ---
CM NOTE CONCURRENT REVIEW FAXED TO [facility] [phone] PORTER # [phone]
[2017-08-11] MEDS: ONDANSETRON 4 MG/2 ML VIAL IVP PRN (15:49)
[2017-08-11] MEDS ORDERED: DEXT 5% / NACL 0.45% 1,000 ML IV SCH (16:00)
--- NOTE | 2017-08-11 16:00 | NUR ---
PT HAD AN EPISODE OF NAUSEA AND VOMITING SMALL AMOUNT CLEAR LIQUID. PRN ZOFRAN GIVEN ORDERED. DR. COYNE CAME IN TO SEE AND EXAMINE PT. UPDATES GIVEN ON PT, MADE AWARE OF PT'S N/V AND LAST BLOOD SUGAR OF 86. ORDER RECEIVED FOR IV FLUID.
--- NOTE | 2017-08-11 16:01 | NUR ---
NGT PLACEMENT CONFIRMED. 2 ML OF GASTRIC RESIDUALS NOTED.
--- NOTE | 2017-08-11 16:05 | NUR ---
PER DR. COYNE, KEEP PT NPO DUE TO ALOC. GIVE PRN ZOFRAN ORDERED FOR NAUSEA AND VOMITING.
--- NOTE | 2017-08-11 18:03 | NUR ---
HEMODIALYSIS COMPLETED. PT TOLERATED WELL. VITAL SIGNS STABLE. NO S/SX OF DISTRESS NOTED AT THIS TIME.
[2017-08-11] MEDS: NACL 0.9% IV SCH (18:12)
[2017-08-11] MEDS: ACYCLOVIR IV SCH (18:12)
--- NOTE | 2017-08-11 19:10 | NUR ---
REPORT GIVEN TO EXECUTIVE SEARCH CONSULTANT RN FOR CONTINUITY OF CARE. PT IS IN STABLE CONDITION.
--- NOTE | 2017-08-11 19:30 | NUR ---
RECEIVED AM SHIFT REPORT. ORDERS, LABS, POC REVIEWED. WILL CONTINUE TO OBSERVE.
--- NOTE | 2017-08-11 20:00 | NUR ---
PT ASLEEP IN BED, RESTING COMFORTABLY, PERRL 4+, PT WITHDRAWS TO PAINFUL STIMULI. PT DOES NOT FOLLOW COMMANDS. SINUS TACHYCARDIA 100S; S1 S2 +2 RADIAL, PEDAL PULSES. LUNGS CLEAR TO UPPER MID LOBES; DIMINISHED @ BASES. PT NPO, L NARE NGT NOTED. FLUSHED AND AUSCULTATED FOR PLACEMENT. HYPOACTIVE BOWEL SOUNDS. PT ANURIC; HD CATH TO R UPPER CHEST NOTED. LEFT FOOT DIABETIC FOOT ULCER NOTED. RIGHT FOOT REDNESS NOTED. PT HAS RIGHT EXTERNAL JUGULAR PATENT WITH IV RUNNING KVO. ALL MONITORS SAFETY ALARMS CHECKED. BED IN LOWEST POSITION. WILL CONTINUE TO OBSERVE.
--- NOTE | 2017-08-11 20:30 | NUR ---
DR. ANDERSON @ BEDSIDE; UPDATED WITH PLAN OF CARE.
--- NOTE | 2017-08-11 21:00 | NUR ---
PT BP ELEVATED; PT CARRY OUT PRN ORDERS. SEE EMAR FOR FURTHER DETAILS.
[2017-08-11] MEDS: ACETAMINOPHEN 325 MG TAB PO PRN (23:30)
--- NOTE | 2017-08-11 23:30 | NUR ---
NOTED PATIENT RESTLESS, MOANING. CHECKED PATIENT, DIAPHORETIC. RECHECKED BLOOD SUGAR 102 MG/DL. V/S: 101.8, 192/90, 112, 26, 99% O2 SATURATION WITH O2 @ 3L/MIN VIA NASAL CANNULA. GIVEN PRN TYLENOL 650 MG VIA GT AND LABETALOL 10 MG IVP FOR SBP >160. GIVEN COOLING BED BATH, TURNED AND REPOSITIONED FOR COMFORT. WILL CONTINUE TO MONITOR.
[2017-08-11] MEDS: LABETALOL 100 MG/20 ML VIAL IVP PRN (23:31)
[2017-08-12] VITALS: BP 156/64
--- NOTE | 2017-08-12 00:10 | NUR ---
PT IN BED EYES CLOSED, ASLEEP IN BED. PT AFEBRILE @ THIS TIME. NO S/S OF PAIN NOTED. NO GRIMACING OR MOANING NOTED. PT REPOSITIONED. NO S/S OF ACUTE DISTRESS NOTED. WILL CONTINUE TO MONITOR.
[2017-08-12 04:00] VITALS: BP 157/72
--- NOTE | 2017-08-12 04:00 | NUR ---
ISABELA, DAUGHTER OF PT CALLED; UPDATED WITH PT STATUS. NO ACUTE S/S OF DISTRESS NOTED WILL CONTINUE TO OBSERVE.
--- NOTE | 2017-08-12 06:02 | NUR ---
PT AROUSABLE, NEEDING FREQUENT REORIENTATION. RESPONDS TO NAME, PASHTO SPEAKING PRIMARILY. DENIES PAIN WHEN ASKED. NO S/S OF PAIN NOTED. REPOSITIONED. WILL CONTINUE TO MONITOR.
--- NOTE | 2017-08-12 07:30 | NUR ---
RECEIVED REPORT FROM RIGGING SUPERVISOR RN. PT OPENS EYES , UNABLE TO FOLLOW COMMANDS. WITHDRAWS TO PAINFUL STIMULI. BEDSIDE MONITOR SHOWS SRVicente ENGLISHT NOTED. FLUSHED AND AUSCULTATED FOR PLACEMENT. ABD SOFT WITH HYPOACTIVE BOWEL SOUNDS. PER RIGGING SUPERVISOR NURSE, PT ANURIC; HD CATH TO R UPPER CHEST NOTED, PT HAD DIALYSIS YESTERDAY. SKIN NON INTACT ( SEE WOUND ASSESSMENT ) PT HAS RIGHT EXTERNAL JUGULAR PATENT WITH IV RUNNING KVO. BED IN LOWEST POSITION. WILL CONTINUE TO MONITOR.
[2017-08-12] MEDS: BLOOD GLUCOSE MONITORING 1 DEV DEV FS SCH ×4 (07:59→21:06)
[2017-08-12 08:00] VITALS: BP 153/71
[2017-08-12] MEDS: VIT-B COMP/VIT-C/FOLIC ACID 1 TAB PO SCH (08:12)
[2017-08-12] MEDS: LISINOPRIL 20 MG TAB PO SCH (08:13)
--- NOTE | 2017-08-12 09:07 | NUR ---
CM NOTE CONCURRENT REVIEW FAXED TO [facility] [phone] PORTER # [phone]
[2017-08-12] MEDS: MORPHINE SULFATE 2 MG/ML SYR IVP PRN (09:23)
[2017-08-12] MEDS: MEROPENEM 500 MG in NACL 0.9% 50 ML IV SCH ×2 (09:47→21:06)
[2017-08-12 10:05] LABS: BASOPHILS % (AUTO) 0.6 % (0.0-2.0); EOSINOPHILS % (AUTO) 0.4 % (0.0-4.0); HEMATOCRIT 30.5 % (36-52); HEMOGLOBIN 10.1 g/dL (12.0-18.0); LYMPHOCYTES # (AUTO) 0.7 K/uL (2.0-11.5); LYMPHOCYTES % (AUTO) 11.1 % (20.5-51.1); MEAN CORPUSCULAR HEMOGLOBIN 29 pg (27-31); MEAN CORPUSCULAR HGB CONC 33 g/dL (33-37); MEAN CORPUSCULAR VOLUME 86 fL (80-94); MONOCYTES # (AUTO) 0.7 K/uL (0.8-1.0); NEUTROPHILS # (AUTO) 4.9 K/uL (1.8-7.7); NEUTROPHILS % (AUTO) 76.9 % (42.2-75.2); PLATELET COUNT (AUTO) 181 K/uL (140-450); RED BLOOD CELL COUNT(AUTO) 3.53 MIL/uL (4.20-6.10); RED CELL DISTRIBUTION WIDTH 17.5 % (11.6-13.7); WHITE BLOOD COUNT (AUTO) 6.3 K/uL (4.8-10.8)
[2017-08-12 10:13] LABS: ANION GAP 20.9 (8-16); CARBON DIOXIDE 22.6 mmol/L (21-32); POTASSIUM 4.5 mmol/L (3.5-5.1)
[2017-08-12 10:15] LABS: CREATININE 4.6 mg/dL (0.7-1.3)
--- NOTE | 2017-08-12 10:16 | NUR ---
CALLED EXCHANGE, PAGED FOR CRITICAL REPORT CREATINE 4.6, WILL FOLLOW UP.
[2017-08-12 12:00] VITALS: BP 139/72
[2017-08-12] MEDS: LORazepam 2 MG/ML VIAL IM/IVP PRN ×3 (12:43→22:59)
[2017-08-12] MEDS: NACL 0.9% IRR 250 ML BOTTLE IR SCH (12:56)
--- NOTE | 2017-08-12 12:56 | NUR ---
08/12/17 RD FOLLOW UP COMPLETED. PLEASE REFER TO NUTRITION ASSESSMENT UNDER CARE ACTIVITY FOR ESTIMATED NUTRITIONAL NEEDS. CONTINUE NPO, ADVANCE TO REGULAR TEXTURES MEDICALLY APPROPRIATE CONSIDER RENAL/DIABETIC DIETARY RESTRICTIONS ONCE DIET IS ADVANCED CONSIDER NUTRITION SUPPLEMENTATION (NOVASOURCE RENAL) FOR INCREASED ENERGY/KCALS APPROPRIATE. RD TO FOLLOW-UP IN 2-3 DAYS PATIENT IS HIGH RISK. SB LISA, RD
--- NOTE | 2017-08-12 13:03 | NUR ---
DR. COYNE IN TO SEE PT, UPDATED PT'S CONDITION, PT'S DAUGHTER AT BEDSIDE, COMMUNICATED WITH PT'S DAUGHTER
--- NOTE | 2017-08-12 13:31 | NUR ---
PT'S AT BEDSIDE, PT'S AND DAUGHTER WERE NOTIFIED PT WILL BE TRANSFERRED TO TELE 117 AFTER 3 PM.
--- NOTE | 2017-08-12 14:50 | NUR ---
PT'S DAUGHTER AWARE PT WILL BE TRANSFERRED TO [facility] AT THIS TIME. ALL PERSONAL BELONGINGS WITH PT, VITALS STABLE AT THIS MOMENT.
--- NOTE | 2017-08-12 15:20 | NUR ---
PATIENT TRANSFERRED FROM ICU. RECEIVED BEDSIDE REPORT FROM LEW MONTANO. PATIENT HAS EYES CLOSED AND IS MUMBLING. HAS NG TUBE TO LEFT NARE, NO FEEDING AT THIS TIME. HAS RIGHT EJ SALINE LOCKED. SITE IS CLEAN, DRY, PATENT AND INTACT. HAS RIGHT PERMACATH FOR DIALYSIS. HAS NASAL CANNULA SET AT 2LPM. HE HAS SCABS ON THE LEFT FOOT AND TURK, ALSO HAS SCABS ON THE RIGHT FOOT. TRANSFERRED PATIENT TO BED, PATIENT TOLERATED WELL. BED IS IN LOWEST POSITION, SIDE RAILS UP X3, CALL LIGHT WITHIN REACH. WILL CONTINUE TO MONITOR.
[2017-08-12 16:00] VITALS: BP 136/59
[2017-08-12] MEDS: ACYCLOVIR IV SCH (16:15)
[2017-08-12] MEDS: NACL 0.9% IV SCH (16:15)
--- NOTE | 2017-08-12 18:02 | NUR ---
* ST NOTE * Pt seen at bedside. Pt asleep upon entering room. Pt difficult to arouse. Upon awakening, pt alert but appearing severely confused, unable to answer questions or follow 1-step instructions at this time. Pt not appearing to be in pain d/t lack of facial grimacing or groaning. Bedside dysphagia and oral mechanism exams completed. See evaluation report for further details. Pt tolerating 0/2 alternating PO trials of honey-thickened apple juice, spitting out both boluses despite maximal education and cueing provided by clinician. Pt however tolerating 2/2 alternating PO trials of puree apple sauce 3-4 CCs at a time but demonstrating residue in oral cavity after PO intake, as well as delay in AP bolus transit and in swallow initiation as well. Pt requiring verbal and tactile cueing from clinician to tolerate and swallow boluses. Because pt presenting with severe confusion and altered mental status, it is recommended pt remain NPO at this time and continue enteral feeding via OGT/NGT, for ST to re-assess w/txs at a later time once pt's level of alertness improves. Pt and caregivers/nsg education completed regarding benefits of completing oral care at least 2x/day in AM and PM 2/2 to pt being NPO, w/pt indifferent but w/nsg verbalizing understanding and agreement w/clinician's recommendations. ST to ff 1-2x in next 1-4 days to further assess pt's tolerance for PO intake. Pt and caregivers/nsg education completed regarding results of evaluation; benefits of receiving skilled EXTERIOR WORK HELPER services; POC; and prognosis for improvement; with pt indifferent but caregivers/nsg verbalizing understanding and agreement w/clinician's recommendations. Recommend: - Pt remain NPO at this time 2/2 to altered mental status - Frequent Oral Care ST to follow up 1-2x to further assess pt's tolerance for PO intake if pt's level of alertness improves. G8996 CM G8997 CL NOMS Level 5 Time In/Out 17:30 - 18:00
[2017-08-12] MEDS ORDERED: MORPHINE SULFATE 2 MG/ML SYR IVP PRN (18:50)
--- NOTE | 2017-08-12 19:30 | NUR ---
RECEIVED FROM AM RN IN BED AWAKE AND TALKING WITH CONFUSION. AT BEDSIDE. TRYING TO GET OUT OF BED. MITTENS IN PLACE. ENCOURAGED TO KEEP AN EYE ON HIM FOR NOW WHILE SHE IS HERE. "OK". PT. NEEDS WILL BE ANTICIPATED AND WILL BE MET. TOTAL CARE. WILL BE TURNED Q 2H. TELEMETRY MONITORING. ON AT 2LPM/NC.
[2017-08-12 20:00] VITALS: BP 150/64
--- NOTE | 2017-08-12 22:59 | NUR ---
PT. AT THIS TIME VERY RESTLESS AND TRYING TO GET OUT OF BED. SOFT MITTENS IN PLACE RT TRYING TO PULL OUT TUBINGS. NGT FEEDING OF NOVASOURCE STARTED AT 20 ML PER HOUR AND TO INCREASE 10 ML PER HOUR AND ACHIEVE TOTAL OF 60 ML/HOUR ORDERED PER AM RN. MEDICATED WITH ATIVAN IVP FOR RESTLESSNESS. ALL NEEDS WILL BE ANTICIPATED. TURNED Q 2H. PILLOW SUPPORT TO PRESSURE AREAS. NGT PLACEMENT CHECKED FOR PLACEMENT AND MADE SURE IT IS IN PLACE. INTRODUCED AIR AND GURGLING SOUND FROM STOMACH HEARD. HOB UP 30 DEGREES FOR ASPIRATION PRECAUTION . BED ALARM ON.
[2017-08-13 00:55] VITALS: BP 127/66
--- NOTE | 2017-08-13 00:59 | NUR ---
PT. TURNED TO SIDES Q 2H. HOB UP 30 DEGREES FOR ASPIRATION PRECAUTIONS. TOTAL CARE. NEEDS ANTICIPATED AND WILL BE MET. SLEEPING . WAKES UP WHEN TOUCHED.
--- NOTE | 2017-08-13 02:00 | NUR ---
PT. TURNED TO SIDES BY LIFTER DRIVER. HOB UP 30 DEGREES FOR ASPIRATION PRECAUTION. CALL LIGHT WITH IN REACH.
[2017-08-13 04:54] VITALS: BP 134/69
[2017-08-13] MEDS: BLOOD GLUCOSE MONITORING 1 DEV DEV FS SCH ×4 (05:28→20:36)
--- NOTE | 2017-08-13 07:15 | NUR ---
ENDORSED TO THE NEXT RN AWAKE AND NO COMPLAINTS DONE. SLEPT WELL THIS SHIFT.
--- NOTE | 2017-08-13 07:20 | NUR ---
RECEIVED REPORT FROM COMMERCIAL UNDERWRITER NURSE, PT IS SLEEPING IN BED AT THIS TIME BUT EASILY AWAKEN, PT IS AAOX2, PT HAS A LEFT TOE PRESSURE ULCER, LEFT TURK SKIN ABRASION, PT HAS IV ON HIS RIGHT IJ, PATENT, INTACT, FLUSHING WELL, PT HAS RIGHT UPPER CHEST DIALYSIS ACCESS, PT HAS NG TUBE ON LEFT NARES, PT IS ON ROOM AIR, NO S/S OF RESPIRATORY DISTRESS OR DISCOMFORT NOTED, PT UNABLE TO COMPREHEND, SAFETY/FALL PRECAUTIONS ARE IN PLACE, CALL LIGHT IS WITHIN REACH, WILL CONTINUE TO MONITOR.
[2017-08-13 07:54] LABS: BASOPHILS # (AUTO) 0.1 K/uL (0.00-0.22); BASOPHILS % (AUTO) 1.9 % (0.0-2.0); EOSINOPHILS # (AUTO) 0.2 K/uL (0-0.4); EOSINOPHILS % (AUTO) 2.9 % (0.0-4.0); HEMATOCRIT 28.9 % (36-52); HEMOGLOBIN 9.5 g/dL (12.0-18.0); LYMPHOCYTES # (AUTO) 0.9 K/uL (2.0-11.5); LYMPHOCYTES % (AUTO) 16.2 % (20.5-51.1); MEAN CORPUSCULAR HEMOGLOBIN 29 pg (27-31); MEAN CORPUSCULAR HGB CONC 33 g/dL (33-37); MEAN CORPUSCULAR VOLUME 87 fL (80-94); MONOCYTES # (AUTO) 0.7 K/uL (0.8-1.0); MONOCYTES % (AUTO) 12.6 % (1.7-9.3); NEUTROPHILS # (AUTO) 3.9 K/uL (1.8-7.7); NEUTROPHILS % (AUTO) 66.4 % (42.2-75.2); PLATELET COUNT (AUTO) 202 K/uL (140-450); RED BLOOD CELL COUNT(AUTO) 3.34 MIL/uL (4.20-6.10); RED CELL DISTRIBUTION WIDTH 17.1 % (11.6-13.7); WHITE BLOOD COUNT (AUTO) 5.8 K/uL (4.8-10.8)
[2017-08-13 08:00] VITALS: BP 125/47
--- NOTE | 2017-08-13 08:25 | NUR ---
PATIENT RECEIVING DIALYSIS AT THIS TIME. PT IS RESTLESS AND IS TRYING TO REMOVE LINES. WILL MEDICATE WITH PRN ATIVAN AT THIS TIME.
[2017-08-13] MEDS: LORazepam 2 MG/ML VIAL IM/IVP PRN (08:29)
--- NOTE | 2017-08-13 08:30 | NUR ---
RECEIVED PHONE CALL FROM PATIENT'S . SHE WAS CALLING TO FOLLOW UP AND ASK HOW HER WAS DOING THIS MORNING. I LET HER KNOW THE PATIENT HAD JUST STARTED DIALYSIS AND WAS GIVEN ATIVAN FOR HIS RESTLESSNESS.
[2017-08-13 08:53] LABS: ANION GAP 18.7 (8-16); CARBON DIOXIDE 24.2 mmol/L (21-32); POTASSIUM 3.9 mmol/L (3.5-5.1)
[2017-08-13] MEDS: LISINOPRIL 20 MG TAB PO SCH (09:00)
[2017-08-13] MEDS: VIT-B COMP/VIT-C/FOLIC ACID 1 TAB PO SCH (09:00)
[2017-08-13 09:01] LABS: CREATININE 6.8 mg/dL (0.7-1.3)
[2017-08-13] MEDS: MEROPENEM 500 MG in NACL 0.9% 50 ML IV SCH ×2 (09:04→20:28)
[2017-08-13] MEDS: EPOETIN ALFA 10,000 UNITS/ML VIAL SUBQ SCH (09:05)
--- NOTE | 2017-08-13 10:50 | NUR ---
PICK UP MAN note (attempted dysphagia therapy) 1040. PICK UP MAN came to attempt to provide dysphagia therapy; however, pt on dialysis at this time and per nursing documentation, pt was given Ativan for restlessness. PICK UP MAN will reattempt as pt available and able to participate safely, as appropriate. MANN
--- NOTE | 2017-08-13 11:20 | NUR ---
CM NOTE CONCURRENT REVIEW FAXED TO [facility] [phone] PORTER # [phone]
[2017-08-13 12:00] VITALS: BP 155/54
--- NOTE | 2017-08-13 12:00 | NUR ---
DIALYSIS COMPLETED AT THIS TIME. 2.2 LITER OUTPUT. PT TOLERATED WELL.
[2017-08-13] MEDS: NACL 0.9% IRR 250 ML BOTTLE IR SCH (13:01)
[2017-08-13] MEDS: INSULIN LISPRO SLIDING SCALE 100 UNITS/ML VIAL SUBQ PRN ×3 (13:01→20:35)
--- NOTE | 2017-08-13 14:51 | NUR ---
P.T. NOTES IN THE MORNING PT WAS HAVING HD AND WAS GIVEN ATIVAN DUE TO RESTLESSNESS, DAUGHTER JOHANA AND SPOUSE ISABELA AT BEDSIDE SAID PATIENT APPEARS MORE LETHARGIC TODAY "YESTERDAY HE AT LEAST GAVE ME A LITTLE SMILE WHEN I CAME IN, NOW HE DOESN'T EVEN OPEN HIS EYES." DUE TO LETHARGY PATIENT WON'T BE ABLE TO ACTIVELY PARTICIPATE WITH P.T. FAMILY AGREED TO HOLDING P.T. TODAY, MARTHA NURSE MADE AWARE.
--- NOTE | 2017-08-13 14:52 | NUR ---
TRAILHEAD MAINTENANCE WORKER note (reattempted dysphagia therapy) 5606. Pt continues to be lethargic and unable to participate safely with dysphagia intervention at this time.. Solar Tech (Jak) spoke with pt's daughter and pt's and both are in agreement with deferring further TRAILHEAD MAINTENANCE WORKER intervention until pt more alert/awake and safe for dysphagia intervention. Solar Tech also alerted nursing. Recommend: 1) continue NPO (oral cares only) 2) continue alternative method(s) of nutrition/hydration/medication vs comfort measures, as appropriate 3) TRAILHEAD MAINTENANCE WORKER will reassess pt for appropriateness for continued dysphagia intervention on Wednesday (08/16/2017), if appropriate. PVE
--- NOTE | 2017-08-13 14:56 | NUR ---
PT IS SLEEPING IN BED AT THIS TIME, NO S/S OF RESPIRATORY DISTRESS OR DISCOMFORT NOTED, PATIENT'S AND DAUGHTER ARE AT BEDSIDE. CALL LIGHT IS WITHIN REACH.
[2017-08-13] MEDS: ACYCLOVIR IV SCH (15:08)
[2017-08-13] MEDS: NACL 0.9% IV SCH (15:08)
[2017-08-13] MEDS: hydrALAZINE 20 MG/ML VIAL IVP PRN (15:50)
[2017-08-13 16:00] VITALS: BP 173/62
[2017-08-13] MEDS ORDERED: VANCOMYCIN 1GM/DEXT 5% PREMIX 200 ML IV SCH (17:00)
[2017-08-13] MEDS: ACETAMINOPHEN 325 MG TAB PO PRN (18:02)
--- NOTE | 2017-08-13 19:20 | NUR ---
ENDORSED PT TO PROJECT DEVELOPER NURSE FOR CONTINUITY OF CARE. PATIENT'S IS AT BEDSIDE.
--- NOTE | 2017-08-13 19:21 | NUR ---
RECEIVED REPORT FROM DAY SHIFT NURSE. PT SLEEPING BUT AROUSABLE. NO S/S OF ACUTE DISTRESS. PT'S AT BEDSIDE. PT HAS IV RIGHT EJ #20G, PATENT AND INTACT. RIGHT UPPER CHEST PERM A CATH, DRESSING CLEAN, DRY AND INTACT. ON O2 AT 2L/MIN VIA NC. NG TUBE TO LEFT NARE, NOVOSOURCE AT 60 ML/HR. PT HAS LEFT TOE DM ULCER AND ABRASION TO LEFT TURK. ASPIRATION AND SAFETY PRECAUTION IN PLACE. WILL CONTINUE TO MONITOR.
[2017-08-13 20:00] VITALS: BP 109/53
--- NOTE | 2017-08-13 21:05 | NUR ---
PT AWAKE.DUE MEDS GIVEN. PT TOLERATED WELL. REPOSITIONED Q2H. ASPIRATION AND SAFETY PRECAUTION IN PLACE.
--- NOTE | 2017-08-13 21:40 | NUR ---
DR. ANDERSON IS HERE TO SEE PT. NO NEW ORDER.
[2017-08-14] VITALS (8 sets, daily range): BP systolic 155–202; BP diastolic 74–100
[2017-08-14] MEDS: hydrALAZINE 20 MG/ML VIAL IVP PRN ×3 (00:03→18:43)
--- NOTE | 2017-08-14 00:05 | NUR ---
CHECKED V/S. BP 202/160, HR 102. HYDRALAZINE 10 MG IVP ADMINISTERED ORDERED. NO S/S OF DISTRESS.
--- NOTE | 2017-08-14 00:50 | NUR ---
CHECKED NGT RESIDUAL 5 ML. STARTED NEW BAG OF NOVASOURCE AT 60 ML/HR. FEEDING TOLERATED WELL. ASPIRATION AND FALL PRECAUTION IN PLACE.
--- NOTE | 2017-08-14 01:00 | NUR ---
PT IN BED, AWAKE , TRYING TO PULL HIS NG TUBE. REPOSITIONED PT Q2H. PT KEPT CLEAN, DRY AND COMFORTABLE.
--- NOTE | 2017-08-14 01:10 | NUR ---
PT'S BP 190/[address]UI[address] SHOEMAKER DIESEL CRANE OPERATOR. WAITING FOR CALL BACK.
--- NOTE | 2017-08-14 01:18 | NUR ---
RECEIVED ORDER FROM DR. SHOEMAKER TO GIVE AMLODIPINE 5 MG TAB VIA NGT NOW AND AMLODIPINE 5 MG TAB NGT DAILY. CHECKED BP AFTER 1 HR AFTER AMLODIPINE 5 MG WAS GIVEN. GIVE CLONIDINE 0.1 MG TAB Q4H VIA NGT IF SBP>180 THEN RECHECKED AFTER 2 HRS, GIVE HYDRALAZINE 25 MG TAB Q4H IF SBP> 160. DR. SHOEMAKER MADE AWARE OF PT RESTLESSNESS. MD ORDERED TO GIVE ATIVAN 0.5MG IVP. ORDER NOTED AND WILL CARRY OUT.
[2017-08-14] MEDS ORDERED: cloNIDine 0.1 MG TAB NG PRN (01:30)
[2017-08-14] MEDS ORDERED: amLODIPine 5 MG TAB NG ONE (01:30)
[2017-08-14] MEDS ORDERED: hydrALAZINE 25 MG TAB NG PRN (01:30)
--- NOTE | 2017-08-14 01:49 | NUR ---
NORVASC 5 MG TAB GIVEN VIA NG TUBE. PT TOLERATED WELL. NO S/S OF DISTRESS.
[2017-08-14] MEDS: LORazepam 2 MG/ML VIAL IM/IVP PRN ×2 (01:56→21:30)
--- NOTE | 2017-08-14 02:50 | NUR ---
BP 159/86, HR 97. NO S/S OF DISTRESS. WILL CONTINUE TO MONITOR. SAFETY AND ASPIRATION PRECAUTION IN PLACE.
--- NOTE | 2017-08-14 04:53 | NUR ---
V/S TAKEN. BP 176/92, HR 92. HYDRALAZINE 25 MG TAB VIA NG TUBE GIVEN. NO S/S OF DISTRESS NOTED. HOB ELEVATED AT 30 DEGREES FOR ASPIRATION PRECAUTION. SAFETY PRECAUTION IN PLACE.
[2017-08-14] MEDS: INSULIN LISPRO SLIDING SCALE 100 UNITS/ML VIAL SUBQ PRN ×3 (06:25→21:31)
[2017-08-14 06:29] LABS: BASOPHILS % (AUTO) 0.6 % (0.0-2.0); EOSINOPHILS # (AUTO) 0.1 K/uL (0-0.4); EOSINOPHILS % (AUTO) 2.3 % (0.0-4.0); HEMOGLOBIN 10.4 g/dL (12.0-18.0); LYMPHOCYTES # (AUTO) 0.7 K/uL (2.0-11.5); LYMPHOCYTES % (AUTO) 11.9 % (20.5-51.1); MEAN CORPUSCULAR HEMOGLOBIN 29 pg (27-31); MEAN CORPUSCULAR HGB CONC 33 g/dL (33-37); MEAN CORPUSCULAR VOLUME 87 fL (80-94); MONOCYTES # (AUTO) 0.8 K/uL (0.8-1.0); MONOCYTES % (AUTO) 13.6 % (1.7-9.3); NEUTROPHILS # (AUTO) 4.5 K/uL (1.8-7.7); NEUTROPHILS % (AUTO) 71.6 % (42.2-75.2); PLATELET COUNT (AUTO) 230 K/uL (140-450); RED BLOOD CELL COUNT(AUTO) 3.58 MIL/uL (4.20-6.10); RED CELL DISTRIBUTION WIDTH 17.1 % (11.6-13.7); WHITE BLOOD COUNT (AUTO) 6.1 K/uL (4.8-10.8)
--- NOTE | 2017-08-14 06:30 | NUR ---
BS CHECKED 331. INSULIN COVERAGE GIVEN PER SLIDING SCALE. V/S TAKEN BP 160/84, HR 94. NO S/S OF DISTRESS.
[2017-08-14] MEDS: BLOOD GLUCOSE MONITORING 1 DEV DEV FS SCH ×4 (06:33→21:27)
[2017-08-14 07:05] LABS: ANION GAP 13.1 (8-16); CARBON DIOXIDE 25.4 mmol/L (21-32); POTASSIUM 3.5 mmol/L (3.5-5.1)
[2017-08-14 07:09] LABS: CREATININE 5.4 mg/dL (0.7-1.3)
--- NOTE | 2017-08-14 07:15 | NUR ---
ENDORSED PT TO DAY SHIFT NURSE. PT IN STABLE CONDITION.
--- NOTE | 2017-08-14 07:16 | NUR ---
RECEIVED REPORT FROM DAY SHIFT NURSE AT BEDSIDE FOR CONTINUITY OF CARE. PT AWAKE AND ALERT, NO S/S OF ACUTE DISTRESS NOTED. FOUND NG TUBE DISPLACED. RIGHT EJ IV #20G FOUND REMOVED, IV CATHETER INTACT, NO ACTIVE BLEEDING PRESENT. RIGHT UPPER CHEST PERM A CATH, DRESSING CLEAN, DRY AND INTACT. ON O2 AT 2L/MIN VIA NC, PULSE OX AT 100%. PT HAS LEFT TOE DM ULCER AND ABRASION TO LEFT AND RIGHT TURK. ASPIRATION AND SAFETY PRECAUTION IN PLACE. BED ALARM ON, BED ON LOWEST SETTING, CALL LIGHT WITHIN REACH. WILL CONTINUE TO MONITOR PATIENT.
--- NOTE | 2017-08-14 08:05 | NUR ---
NG TUBE INSERTION ATTEMPTED. PATIENT REFUSED. IV INSERTED. RIGHT FOREARM #22 G, PATENT, ASYMPTOMATIC, AND INTACT. PATIENT TOLERATED IT WELL. NO SIGNS OF DISTRESS OR SOB NOTED. SAFETY PRECAUTION IN PLACE, BED ALARM ON, BED IN LOWEST POSITION. CALL LIGHT WITHIN REACH, WILL CONTINUE TO MONITOR PATIENT.
[2017-08-14] MEDS: amLODIPine 5 MG TAB NG SCH (09:00)
[2017-08-14] MEDS: VIT-B COMP/VIT-C/FOLIC ACID 1 TAB PO SCH (09:00)
[2017-08-14] MEDS: LISINOPRIL 20 MG TAB PO SCH (09:00)
--- NOTE | 2017-08-14 09:15 | NUR ---
PAGED DR. RUIZ. INFORMED DR. VERDUGO IS DROP FORGER HELPER. AWAITING HIS CALL BACK.
[2017-08-14] MEDS: MEROPENEM 500 MG in NACL 0.9% 50 ML IV SCH (10:45)
--- NOTE | 2017-08-14 10:55 | NUR ---
DAUGHTER JOHANA CALLED. UPDATED HER ON PLAN OF CARE, SHE VERBALIZED UNDERSTANDING. PATIENT RESTING IN BED, NO SIGNS OF DISTRESS OR SOB NOTED. SAFETY PRECAUTION IN PLACE, BED ALARM ON, BED ON LOWEST SETTING, CALL LIGHT WITHIN REACH. WILL CONTINUE TO MONITOR PATIENT.
--- NOTE | 2017-08-14 12:40 | NUR ---
08/14/17 RD FOLLOW UP COMPLETED PLEASE REFER TO NUTRITION PROGRESS NOTE UNDER CARE ACTIVITY FOR ESTIMATED NUTRITION NEEDS. RD RECOMMENDATIONS: 1- CONTINUE CURRENT TF NOVASOURCE RENAL @20MLS/HR. 2- WHEN MEDICALLY CLEARED, SUGGEST INCREASE TF RATE TO 35MLS/HR TO PROVIDE 1680KCALS (103%) & 76G (93%) PROTEIN. 3- RD TO FOLLOW-UP IN 2-3 DAYS PATIENT IS HIGH RISK. CHUCHO MCCAULEY MBA, RD
[2017-08-14] MEDS: MORPHINE SULFATE 2 MG/ML SYR IVP PRN (13:46)
[2017-08-14] MEDS: NACL 0.9% IRR 250 ML BOTTLE IR SCH (13:50)
--- NOTE | 2017-08-14 13:54 | NUR ---
DR. HERNANDEZ IN TO SEE THE PATIENT. FAMILY AT BEDSIDE. PATIENT RESTING IN BED, NO SIGNS OF DISTRESS OR SOB NOTED. FLACC-0. SAFETY PRECAUTION IN PLACE, BED ALARM ON, BED ON LOWEST SETTING, CALL LIGHT WITHIN REACH. WILL CONTINUE TO MONITOR PATIENT.
--- NOTE | 2017-08-14 13:54 | NUR ---
PAGED PULMONARY GROUP FOR DR. RUIZ. WAS TOLD DR. VERDUGO SLIVER HANDLER. WILL WAIT FOR HIS CALL BACK.
[2017-08-14] MEDS ORDERED: KETOROLAC 15 MG/ML VIAL IM PRN (14:05)
--- NOTE | 2017-08-14 14:10 | NUR ---
DR. VERDUGO CALLED BACK. UPDATED HIM WITH PATIENT CONDITION AND NEWS THAT DR. HERNANDEZ IS IN TO SEE THE PATIENT. AWAITING DR. HERNANDEZ'S UPDATED ORDERS.
--- NOTE | 2017-08-14 15:10 | NUR ---
PHYSICAL THERAPY IN TO SEE THE PATIENT, WILL WAIT FOR THEIR ASSESSMENT.
[2017-08-14] MEDS: DEXT 5% / NACL 0.45% 1,000 ML IV SCH (15:11)
[2017-08-14] MEDS: ACYCLOVIR IV SCH (15:30)
[2017-08-14] MEDS: NACL 0.9% IV SCH (15:30)
--- NOTE | 2017-08-14 15:35 | NUR ---
PHYSICAL THERAPY CO-SIGN The Physical Therapy Progress Notes documented by Mail Processor have been reviewed. I CONCUR W/FLAKEBOARD LINE TENDER NOTE; CONT PER TX PLAN Reviewed/Co-Signed by: Dennise Cottrell, PT Documentation Done by: CHRISTINA WOODS PTA Addendum: 08/14/17 at 1536 by Dennise Cottrell PT Amended: Links added.
--- NOTE | 2017-08-14 16:35 | NUR ---
BP 155/74, HR 91, RR 16, O2 SAT @ 95% ON RA, TEMP 98.9. BLOOD SUGAR 114. PATIENT RESTING IN BED, NO SIGNS OF DISTRESS OR SOB NOTED. FLACC-0. SAFETY PRECAUTION IN PLACE, CALL LIGHT WITHIN REACH, WILL CONTINUE TO MONITOR PATIENT.
--- NOTE | 2017-08-14 17:15 | NUR ---
PATIENT RESTING IN BED, SLEEPING, NO SIGNS OF DISTRESS OR SOB NOTED. FLACC-0. SAFETY PRECAUTION IN PLACE, CALL LIGHT WITHIN REACH. WILL CONTINUE TO MONITOR PATIENT.
--- NOTE | 2017-08-14 18:40 | NUR ---
BP 202/102 HR 95, HYDRALAZINE IVP ADMINISTERED. PAGED PULMONARY GROUP TO UPDATE THEM ABOUT PT'S STATUS. PATIENT RESTING IN BED, SLIGHTLY AGITATED. PATIENT REPOSITIONED FOR COMFORT. SAFETY PRECAUTION IN PLACE, CALL LIGHT WITHIN REACH, WILL CONTINUE TO MONITOR PATIENT. AWAITING CALL BACK FROM DR. NEVES.
--- NOTE | 2017-08-14 18:50 | NUR ---
SPOKE TO DR. NEVES AND UPDATED HER WITH PATIENT'S HIGH BLOOD PRESSURE AND STATUS. DR. NEVES AWARE, PATIENT'S PRN MEDICATIONS FOR BP CAN BE CONTINUED, NO NEW ORDERS ADDED.
--- NOTE | 2017-08-14 19:05 | NUR ---
REPORT GIVEN TO EMERGENCY DEPARTMENT RN NURSE AT BEDSIDE FOR CONTINUITY OF CARE. HYDRALAZINE REASSESSMENT ENDORSED TO EMERGENCY DEPARTMENT RN NURSE. DAUGHTER AT BEDSIDE, PATIENT IN STABLE CONDITION.
--- NOTE | 2017-08-14 19:20 | NUR ---
RECEIVED PT IN STABLE CONDITION FROM AM NURSE. AWAKE.ORIENTED X3. WITH CONFUSION. FAMILY AT BEDSIDE. NO DISTRESS NOTED. BEDREST. WITH IVF INFUSING WELL ON THE RT FA#[phone]. CLEAR AND PATENT. YUE SHEEN WITH SCABS ,ALEX AND LT BIG TOE WITH DARK COLORED WOUND. PT ON HD WITH ACCESS ON THE RT SUBCLAVIAN LEFTY SPLIT CATHETER, DERRING CLEAN AND DRY. PLAN OF CARE DISCUSSED WITH PT/FAMILY. FAMILY VERBALIZED UNDERSTANDING.
--- NOTE | 2017-08-14 20:30 | NUR ---
DR. JUSTIN GUERIN . AZRA'Albertina CHAUDHARI.
--- NOTE | 2017-08-14 21:30 | NUR ---
PT IS AGITATED. AT BEDSIDE. SHE SAID OK TO GIVE ATIVAN PRN ORDERED.
--- NOTE | 2017-08-14 21:31 | NUR ---
BLOOD SUGAR WAS CHECKED RESULT 192. INSULIN COVERAGE GIVNE. WITH CONTINUOS IVF D51/2 NS @42 ML /NH. WILL CONTINUE TO MONITOR.
--- NOTE | 2017-08-14 22:30 | NUR ---
PT IS ASLEEP. NO S/S OF ANY DISTRESS NOR DISCOMFORT NOTED.
[2017-08-15] VITALS (7 sets, daily range): BP systolic 137–191; BP diastolic 71–109
[2017-08-15] MEDS: hydrALAZINE 20 MG/ML VIAL IVP PRN ×4 (01:03→20:46)
--- NOTE | 2017-08-15 01:03 | NUR ---
BLOOD PRESSURE 172/83. HR -92. APRESOLINE 10MG IVP GIVEN ORDERED. WILL REASSESS AFTER AN HOUR.
--- NOTE | 2017-08-15 02:03 | NUR ---
LATEST BP 137/77. HR-95. PT IS AWAKE. NO DISTRESS NOTED.
--- NOTE | 2017-08-15 04:48 | NUR ---
ANOTHER LIQUID STOOL YELLOWISH ,NO SOLIDS NOTED. Addendum: 08/15/17 at 0449 by Kya Ramirez RN CANCEL ABOVE NOTES. WRONG PT.
--- NOTE | 2017-08-15 05:20 | NUR ---
PT HAS BEEN REPOSITIONED FOR COMFORT. NO DISCOMFORT NOTED.
[2017-08-15] MEDS: BLOOD GLUCOSE MONITORING 1 DEV DEV FS SCH ×4 (06:22→21:05)
[2017-08-15] MEDS: INSULIN LISPRO SLIDING SCALE 100 UNITS/ML VIAL SUBQ PRN ×3 (06:24→22:09)
--- NOTE | 2017-08-15 07:25 | NUR ---
ENDORSED PT IN STABLE CONDITION TO AM NURSE.
--- NOTE | 2017-08-15 08:04 | NUR ---
BP 191/109 HR 97. HYDRALAZINE PRN ADMINISTERED. PATIENT TOLERATED IT WELL. WILL REASSESS.
[2017-08-15] MEDS: amLODIPine 5 MG TAB NG SCH (09:00)
[2017-08-15] MEDS: LISINOPRIL 20 MG TAB PO SCH (09:00)
[2017-08-15] MEDS: VIT-B COMP/VIT-C/FOLIC ACID 1 TAB PO SCH (09:00)
--- NOTE | 2017-08-15 09:04 | NUR ---
BP 182/88 HR 97. PATIENT RESTING IN BED, NO SIGNS OF DISTRESS OR SOB NOTED. SAFETY PRECAUTION IN PLACE, CALL LIGHT WITHIN REACH. WILL CONTINUE TO MONITOR PATIENT.
--- NOTE | 2017-08-15 09:09 | NUR ---
PATIENT'S , ISABELA, CALLED. UPDATED HER ON PATIENT'S PLAN OF CARE AND CURRENT CONDITION. SHE VERBALIZED UNDERSTANDING. PATIENT RESTING IN BED, REPOSITIONED HIM FOR COMFORT AND TO OFFLOAD PRESSURE AREAS. ORAL CARE GIVEN. PATIENT TOLERATED THEM WELL. NO SIGNS OF DISTRESS OR SOB NOTED, PATIENT RESTING IN BED, SAFETY PRECAUTION IN PLACE, CALL LIGHT WITHIN REACH, WILL CONTINUE TO MONITOR PATIENT.
--- NOTE | 2017-08-15 09:24 | NUR ---
XRAY TECHS IN TO TAKE CHEST XRAY. PATIENT TOLERATED IT WELL. WILL AWAIT RESULTS.
[2017-08-15 10:00] LABS: EOSINOPHILS # (AUTO) 0.2 K/uL (0-0.4); MONOCYTES # (AUTO) 0.6 K/uL (0.8-1.0); RED BLOOD CELL COUNT(AUTO) 3.58 MIL/uL (4.20-6.10); WHITE BLOOD COUNT (AUTO) 5.4 K/uL (4.8-10.8)
[2017-08-15 10:04] LABS: BASOPHILS # (AUTO) 0.1 K/uL (0.00-0.22); BASOPHILS % (AUTO) 1.8 % (0.0-2.0); EOSINOPHILS % (AUTO) 4.5 % (0.0-4.0); HEMATOCRIT 30.4 % (36-52); HEMOGLOBIN 10.4 g/dL (12.0-18.0); LYMPHOCYTES # (AUTO) 0.8 K/uL (2.0-11.5); LYMPHOCYTES % (AUTO) 14.3 % (20.5-51.1); MEAN CORPUSCULAR HEMOGLOBIN 29 pg (27-31); MEAN CORPUSCULAR HGB CONC 34 g/dL (33-37); MEAN CORPUSCULAR VOLUME 85 fL (80-94); MONOCYTES % (AUTO) 11.9 % (1.7-9.3); NEUTROPHILS # (AUTO) 3.7 K/uL (1.8-7.7); NEUTROPHILS % (AUTO) 67.5 % (42.2-75.2); PLATELET COUNT (AUTO) 263 K/uL (140-450); RED CELL DISTRIBUTION WIDTH 17.1 % (11.6-13.7)
[2017-08-15 10:13] LABS: ANION GAP 17.9 (8-16); CARBON DIOXIDE 23.7 mmol/L (21-32); POTASSIUM 3.6 mmol/L (3.5-5.1)
[2017-08-15 10:18] LABS: CREATININE 7.7 mg/dL (0.7-1.3)
--- NOTE | 2017-08-15 10:50 | NUR ---
JAVY VAUGHN AT BEDSIDE, PATIENT REPOSITIONED IN BED FOR COMFORT AND TO OFFLOAD PRESSURE AREAS. PATIENT RESTING IN BED. NO SIGNS OF DISTRESS OR SOB NOTED. SAFETY PRECAUTION IN PLACE, BED ALARM ON, BED ON LOWEST SETTING, CALL LIGHT WITHIN REACH. WILL CONTINUE TO MONITOR PATIENT.
--- NOTE | 2017-08-15 12:40 | NUR ---
ZOVIRAX IVPB ADMINISTERED ORDERED. BP 169/64. PATIENT LYING IN BED RESTING, ISABELA AND DAUGHTER JOHANA AT BEDSIDE. TEMP 99.7. REQUESTED ICE PACKS, ICE PACKS GIVEN. DR. HERNANDEZ IN TO SEE THE PATIENT. PATIENT GREETED DOCTOR. WHEN ASKED HOW ARE YOU, PATIENT RESPONDED WITH "PERFECT, DOCTOR." PER DOCTOR, PATIENT WAS GIVEN SOME APPLESAUCE TO EVALUATE HIS SWALLOWING, PATIENT SWALLOWED WELL WITHOUT DISTRESS. WATER WAS ALSO GIVEN FOR PATIENT TO DRINK, PATIENT WAS ABLE TO SWALLOW WITHOUT DIFFICULTY. DR. HERNANDEZ WAS INFORMED OF THIS INFORMATION. WILL AWAIT FOR HIS UPDATED ORDERS. PATIENT RESTING IN BED, NO SIGNS OF DISTRESS OR SOB NOTED. SAFETY PRECAUTION IN PLACE, BED ALARM ON, BED ON LOWEST SETTING, CALL LIGHT WITHIN REACH, WILL CONTINUE TO MONITOR PATIENT.
[2017-08-15] MEDS: NACL 0.9% IV SCH (12:43)
[2017-08-15] MEDS: ACYCLOVIR IV SCH (12:43)
[2017-08-15] MEDS: NACL 0.9% IRR 250 ML BOTTLE IR SCH (13:32)
[2017-08-15] MEDS: DEXT 5% / NACL 0.45% 1,000 ML IV SCH (14:46)
--- NOTE | 2017-08-15 14:55 | NUR ---
PATIENT REPOSITION FOR COMFORT AND TO OFFLOAD PRESSURE AREAS. PATIENT RESTING IN BED, AND DAUGHTER AT BEDSIDE. SAFETY PRECAUTION IN PLACE, CALL LIGHT WITHIN REACH. WILL CONTINUE TO MONITOR PATIENT.
--- NOTE | 2017-08-15 16:35 | NUR ---
BLOOD SUGAR 130, NO COVERAGE NEEDED. PATIENT REPOSITIONED FOR COMFORT AND TO OFFLOAD PRESSURE AREAS. VITAL SIGNS WITHIN NORMAL LIMITS. PATIENT RESTING IN BED, AND DAUGHTER AT BEDSIDE. SAFETY PRECAUTION IN PLACE, BED ALARM ON, BED ON LOWEST SETTING, CALL LIGHT WITHIN REACH, WILL CONTINUE TO MONITOR PATIENT.
--- NOTE | 2017-08-15 19:25 | NUR ---
REPORT GIVEN TO PRODUCTION CORRUGATOR NURSE AT BEDSIDE FOR CONTINUITY OF CARE. PATIENT IN STABLE CONDITION.
--- NOTE | 2017-08-15 19:26 | NUR ---
RECEIVED PT FROM DAY SHIFT NURSE LATOYA-RN. PT AOX1-CONFUSED, TURKISH SPEAKER, BEDBOUND. ON ROOM AIR. ANURIC. TURK SCABS BILATERALLY, DIABETIC ULCER ON GREATER TOES BILATERALLY. ON RENAL DIET-CHOPPED. IV RIGHT FA #20G, D5 1/2 NS 10ML/HR. RIGHT SUBCLAVIAN HD CATHETER. DO NOT USE LEFT ARM FOR BLOOD PRESSURE. FAMILY AT BEDSIDE. CALL LIGHT WITHIN REACH. BED IN LOWEST POSITION. WILL CONTINUE TO MONITOR.
--- NOTE | 2017-08-15 19:35 | NUR ---
PATIENT SITTING UP IN BED. AT BEDSIDE, EATING A LITTLE BIT OF DINNER. SAFETY AND ASPIRATION PRECAUTION IN PLACE, BED ALARM ON, BED ON LOWEST SETTING, CALL LIGHT WITHIN REACH. WILL CONTINUE TO MONITOR PATIENT. Addendum: 08/15/17 at 1940 by Domo Sims RN WRONG TIME. [id number]
--- NOTE | 2017-08-15 20:50 | NUR ---
SCHEDULED MEDICATION WAS GIVEN AND TOLERATED WELL. PT IN BED RESTING. NO S/S OF RESPIRATORY DISTRESS OR DISCOMFORT NOTED AT THIS TIME. BED IN LOWEST POSITION. CALL LIGHT WITHIN REACH. WILL CONTINUE TO MONITOR.
--- NOTE | 2017-08-15 22:00 | NUR ---
PT SLEEPING AT THIS TIME. NO S/S OF RESPIRATORY DISTRESS OR DISCOMFORT NOTED AT THIS TIME. BED IN LOWEST POSITION. CALL LIGHT WITHIN REACH. WILL CONTINUE TO MONITOR.
[2017-08-16] VITALS (8 sets, daily range): BP systolic 112–205; BP diastolic 70–99
--- NOTE | 2017-08-16 00:05 | NUR ---
VITAL SIGNS STABLE AT THIS TIME. NO S/S OF RESPIRATORY DISTRESS OR DISCOMFORT NOTED. PT RESTING IN BED. CALL LIGHT WITHIN REACH. WILL CONTINUE TO MONITOR.
--- NOTE | 2017-08-16 02:15 | NUR ---
PT HEARD YELLING THROUGH THE HALLWAY. WENT TO ASSESS PT. PT WAS TALKING INCOHERENTLY. WAS ABLE TO CALM HIM DOWN. RE-POSITIONED PT IN BED. WATER WAS GIVEN.
[2017-08-16] MEDS: hydrALAZINE 20 MG/ML VIAL IVP PRN (04:32)
--- NOTE | 2017-08-16 04:32 | NUR ---
VITAL SIGNS TAKEN. BLOOD PRESSURE 187/91, HR 101. MEDICATED WITH APRESOLINE 10MG IVP. WILL REASSESS
[2017-08-16] MEDS: BLOOD GLUCOSE MONITORING 1 DEV DEV FS SCH ×4 (06:05→20:44)
[2017-08-16] MEDS: INSULIN LISPRO SLIDING SCALE 100 UNITS/ML VIAL SUBQ PRN ×3 (06:10→20:50)
--- NOTE | 2017-08-16 06:10 | NUR ---
BLOOD SUGAR WAS CHECKED THIS AM . RESULT 173. INSULIN COVERAGE GIVEN SUBQ.
[2017-08-16 07:03] LABS: BASOPHILS # (AUTO) 0.1 K/uL (0.00-0.22); BASOPHILS % (AUTO) 0.8 % (0.0-2.0); EOSINOPHILS # (AUTO) 0.2 K/uL (0-0.4); EOSINOPHILS % (AUTO) 3.5 % (0.0-4.0); HEMOGLOBIN 10.1 g/dL (12.0-18.0); LYMPHOCYTES # (AUTO) 0.8 K/uL (2.0-11.5); LYMPHOCYTES % (AUTO) 11.2 % (20.5-51.1); MEAN CORPUSCULAR HEMOGLOBIN 29 pg (27-31); MEAN CORPUSCULAR HGB CONC 34 g/dL (33-37); MEAN CORPUSCULAR VOLUME 87 fL (80-94); MONOCYTES # (AUTO) 0.7 K/uL (0.8-1.0); MONOCYTES % (AUTO) 10.2 % (1.7-9.3); NEUTROPHILS # (AUTO) 5.3 K/uL (1.8-7.7); NEUTROPHILS % (AUTO) 74.3 % (42.2-75.2); PLATELET COUNT (AUTO) 272 K/uL (140-450); RED BLOOD CELL COUNT(AUTO) 3.45 MIL/uL (4.20-6.10); RED CELL DISTRIBUTION WIDTH 16.9 % (11.6-13.7); WHITE BLOOD COUNT (AUTO) 7.1 K/uL (4.8-10.8)
[2017-08-16 07:19] LABS: ANION GAP 21.5 (8-16); CARBON DIOXIDE 20.2 mmol/L (21-32); POTASSIUM 3.7 mmol/L (3.5-5.1)
--- NOTE | 2017-08-16 07:30 | NUR ---
ENDORSED STABLE PT TO AM NURSE MARTHA HACKETT.
[2017-08-16 07:34] LABS: CREATININE 9.2 mg/dL (0.7-1.3)
--- NOTE | 2017-08-16 07:35 | NUR ---
RECEIVED REPORT FROM STATISTICS INTERN NURSE, PT IS RESTING IN BED AT THIS TIME, PT IS AAOX1, CONFUSED, PT IS ON BEDREST, PT HAS IV ON THE LEFT FA, PATENT, INTACT, FLUSHING WELL, HAS RIGHT UPPER CHEST PERMACATH, PT HAS LEFT TOE DIABETIC ULCER, ABRASION ON HIS BILATERAL SHINS, NO S/S OF RESPIRATORY DISTRESS OR DISCOMFORT NOTED, CALL LIGHT IS WITHIN REACH, WILL CONTINUE TO MONITOR.
--- NOTE | 2017-08-16 08:20 | NUR ---
DIALYSIS NURSE IN PATIENT'S ROOM STARTING DIALYSIS.
[2017-08-16] MEDS: VIT-B COMP/VIT-C/FOLIC ACID 1 TAB PO SCH (09:00)
[2017-08-16] MEDS: LISINOPRIL 20 MG TAB PO SCH (09:00)
[2017-08-16] MEDS: amLODIPine 5 MG TAB NG SCH (09:00)
[2017-08-16] MEDS ORDERED: cloNIDine-TTS2 0.2 MG/24 HR 1 EA PATCH TD SCH ×2 (09:00)
[2017-08-16] MEDS: EPOETIN ALFA 10,000 UNITS/ML VIAL SUBQ SCH (09:33)
--- NOTE | 2017-08-16 10:52 | NUR ---
CM NOTE CONCURRENT REVIEW FAXED TO [facility] [phone] PORTER # [phone]
--- NOTE | 2017-08-16 11:30 | NUR ---
DIALYSIS COMPLETED AT THIS TIME. 2.4 L OUTPUT FROM HD. PT IS RESTING IN BED, NO S/S OF RESPIRATORY DISTRESS OR DISCOMFORT NOTED. WILL CONTINUE TO MONITOR.
[2017-08-16] MEDS: NACL 0.9% IV SCH (12:32)
[2017-08-16] MEDS: ACYCLOVIR IV SCH (12:32)
[2017-08-16] MEDS: NACL 0.9% IRR 250 ML BOTTLE IR SCH (12:45)
[2017-08-16] MEDS: DEXT 5% / NACL 0.45% 1,000 ML IV SCH (14:10)
--- NOTE | 2017-08-16 15:49 | NUR ---
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 PER JIA IT WAS SENT TO LAB [facility] AND NO RESULTS YET AT THIS TIME. I ASKED HER WHEN ARE WE EXPECTING THE RESULT SHE SAID IT TAKES TIME AND MIGHT PROBABLY BE AVAILABLE ON OR BEFORE Wednesday07/23/17.
--- NOTE | 2017-08-16 16:00 | NUR ---
COMPUTER INFORMATION SYSTEMS PROFESSOR note (attempted dysphagia therapy) [id number]. COMPUTER INFORMATION SYSTEMS PROFESSOR came to attempt to provide dysphagia therapy; however, pt with fever at this time and pt with eyes open but unable to follow commands. Pt's spouse states that he doesn't recognize her. COMPUTER INFORMATION SYSTEMS PROFESSOR provided education, supportive listening, and encouragement to pt's spouse (at bedside) with good result. COMPUTER INFORMATION SYSTEMS PROFESSOR encouraged pt's spouse to be very careful with PO for pt based on pt's lethargy. Pt's spouse verbalized agreement and understanding. COMPUTER INFORMATION SYSTEMS PROFESSOR will continue to f/u per current COMPUTER INFORMATION SYSTEMS PROFESSOR plan of care as pt able to participate safely, as appropriate. PVE for d/w RN (Isadora) prior and following dysphagia therapy attempt.
--- NOTE | 2017-08-16 16:35 | NUR ---
PATIENT'S IS AT BEDSIDE AT THIS TIME, PT IS RESTING IN BED, NO S/S OF RESPIRATORY DISTRESS OR DISCOMFORT NOTED, CALL LIGHT WITHIN REACH.
[2017-08-16] MEDS ORDERED: ACYCLOVIR IV PER PHARMACY MC PRN (17:40)
--- NOTE | 2017-08-16 19:40 | NUR ---
ENDORSED PT TO TOOL COORDINATOR NURSE FOR CONTINUITY OF CARE. PT STABLE AT THIS TIME. PATIENT'S AND DAUGHTER ARE AT BEDSIDE.
--- NOTE | 2017-08-16 19:41 | NUR ---
RECEIVED REPORT FROM DAY SHIFT RN, PT IS A/OX1, ON ROOM AIR. IV TO RIGHT FOREARM. PT IS ON BEDREST. PT HAS A DM ULCER TO LEFT TOE, AND SCABS FROM ABRASIONS TO B/L SHINS. UPDATED BOARD. VITAL SIGNS WITHIN NORMAL LIMITS. PT IN STABLE CONDITION, NO SIGNS OF DISTRESS NOTED. BED IN LOWEST POSITION, CALL LIGHT WITHIN REACH. WILL CONTINUE TO MONITOR.
--- NOTE | 2017-08-16 20:50 | NUR ---
ADMINISTERED SCHEDULED MEDICATION AND COVERED BLOOD SUGAR OF 217 WITH 4 UNITS OF SLIDING SCALE HUMALOG PER ORDER, PT TOLERATED WELL. PT IN STABLE CONDITION, NO SIGNS OF DISTRESS NOTED. BED IN LOWEST POSITION, CALL LIGHT WITHIN REACH. WILL CONTINUE TO MONITOR.
[2017-08-16] MEDS: MORPHINE SULFATE 2 MG/ML SYR IVP PRN (21:19)
--- NOTE | 2017-08-16 21:20 | NUR ---
PT FLACC SCORE 6, ADMINISTERED MORPHINE PER ORDER, PT TOLERATED WELL. FAMILY AT BEDSIDE. PT IN STABLE CONDITION, NO SIGNS OF DISTRESS NOTED. BED IN LOWEST POSITION, CALL LIGHT WITHIN REACH. WILL CONTINUE TO MONITOR.
[2017-08-17] MEDS: LORazepam 2 MG/ML VIAL IM/IVP PRN (00:29)
[2017-08-17] MEDS: hydrALAZINE 20 MG/ML VIAL IVP PRN (00:30)
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
[2017-08-17 00:31] VITALS: BP 179/96
--- NOTE | 2017-08-17 01:35 | NUR ---
PT VITAL SIGNS STABLE NOW. BP/ DROPPED DOWN TO 124/96, WITH HEART RATE OF 75. PT IN STABLE CONDITION, NO SIGNS OF DISTRESS NOTED. BED IN LOWEST POSITION, CALL LIGHT WITHIN REACH. WILL CONTINUE TO MONITOR.
[2017-08-17 04:00] VITALS: BP 123/60
--- NOTE | 2017-08-17 04:00 | NUR ---
VITAL SIGNS WITHIN NORMAL LIMITS. PT IN STABLE CONDITION, NO SIGNS OF DISTRESS NOTED. BED IN LOWEST POSITION, CALL LIGHT WITHIN REACH. WILL CONTINUE TO MONITOR.
[2017-08-17] MEDS: BLOOD GLUCOSE MONITORING 1 DEV DEV FS SCH ×4 (06:36→20:47)
--- NOTE | 2017-08-17 06:36 | NUR ---
BLOOD SUGAR 140, NO INSULIN COVERAGE NEEDED. PT IN STABLE CONDITION, WILL CONTINUE TO MONITOR.
--- NOTE | 2017-08-17 07:30 | NUR ---
RECEIVED PATIENT REPORT FROM NIGHTSHIFT NURSE AT BEDSIDE. PATIENT IS ASLEEP AT THIS TIME. BREATHING IS WITHIN NORMAL LIMITS. PATIENT FLACC SCORE IS 0 AT THIS TIME. UPDATED BOARD AND LOWERED BED TO LOWEST SETTING. ARMED PATEINT'S BED ALARM. PATIENT HAS MITTENS ATTACHED TO BOTH HANDS WITH NO RESTRAINTS. WILL CONTINUE TO MONITOR PATIENT.
--- NOTE | 2017-08-17 07:32 | NUR ---
ENDORSED PT IN STABLE CONDITION TO DAY SHIFT NURSE FOR CONTINUITY OF CARE.
[2017-08-17 07:37] LABS: BASOPHILS # (AUTO) 0.1 K/uL (0.00-0.22); BASOPHILS % (AUTO) 2.5 % (0.0-2.0); EOSINOPHILS # (AUTO) 0.1 K/uL (0-0.4); EOSINOPHILS % (AUTO) 1.5 % (0.0-4.0); HEMATOCRIT 29.6 % (36-52); HEMOGLOBIN 10.2 g/dL (12.0-18.0); LYMPHOCYTES % (AUTO) 21.3 % (20.5-51.1); MEAN CORPUSCULAR HEMOGLOBIN 29 pg (27-31); MEAN CORPUSCULAR HGB CONC 34 g/dL (33-37); MEAN CORPUSCULAR VOLUME 86 fL (80-94); MONOCYTES # (AUTO) 0.8 K/uL (0.8-1.0); NEUTROPHILS # (AUTO) 2.8 K/uL (1.8-7.7); NEUTROPHILS % (AUTO) 58.7 % (42.2-75.2); PLATELET COUNT (AUTO) 253 K/uL (140-450); RED BLOOD CELL COUNT(AUTO) 3.45 MIL/uL (4.20-6.10); RED CELL DISTRIBUTION WIDTH 16.8 % (11.6-13.7); WHITE BLOOD COUNT (AUTO) 4.8 K/uL (4.8-10.8)
[2017-08-17 07:54] LABS: ANION GAP 13.6 (8-16); CARBON DIOXIDE 24.5 mmol/L (21-32); POTASSIUM 3.1 mmol/L (3.5-5.1)
--- NOTE | 2017-08-17 07:57 | NUR ---
CM NOTE CONCURRENT REVIEW AND ORDER FOR CASA YAEL EVAL FAXED TO [facility] [phone] PORTER PH# [phone] FAXED CASA YAEL EVAL ORDER AND PT NOTES TO [facility] [phone] CHRIS PH# [phone], GI[place]NA PH# [phone]
[2017-08-17 07:58] LABS: CREATININE 6.3 mg/dL (0.7-1.3)
[2017-08-17 08:00] VITALS: BP 165/85
[2017-08-17] MEDS: amLODIPine 5 MG TAB NG SCH (08:58)
[2017-08-17] MEDS: VIT-B COMP/VIT-C/FOLIC ACID 1 TAB PO SCH (08:58)
[2017-08-17] MEDS: LISINOPRIL 20 MG TAB PO SCH (08:59)
--- NOTE | 2017-08-17 09:05 | NUR ---
PATIENT IS AWAKE AT THIS TIME. BREATHING WITHIN NORMAL LIMITS. PATIENT FLACC SCORE 0. WILL CONTINUE TO MONITOR PATIENT.
[2017-08-17 09:13] LABS: HEPATITIS B SURFACE ANTIBODY Reactive (.)
--- NOTE | 2017-08-17 10:37 | NUR ---
PAGED DR. RUIZ REGARDING PATIENT'S POTASSIUM LEVEL. AWAITING CALL BACK FROM
--- NOTE | 2017-08-17 11:25 | NUR ---
TALKED TO DR. RUIZ REGARDING PATIENT'S POTASSIUM. SAID, "SINCE PATIENT IS ON HEMODIALYSIS, WE WILL NOT CORRECT THE POTASSIUM". WILL CONTINUE TO MONITOR PATIENT.
[2017-08-17 12:00] VITALS: BP 128/67
[2017-08-17] MEDS: ACYCLOVIR IV SCH (12:18)
[2017-08-17] MEDS: NACL 0.9% IV SCH (12:18)
[2017-08-17] MEDS: INSULIN LISPRO SLIDING SCALE 100 UNITS/ML VIAL SUBQ PRN ×3 (12:22→20:48)
--- NOTE | 2017-08-17 12:39 | NUR ---
PATIENT LAYING IN BED WATCHING TELEVISION. FLACC SCORE 0 AND NO SIGNS OF RESPIRATORY DISTRESS OR RESPIRATORY DEPRESSION. WILL CONTINUE TO MONITOR PATIENT.
[2017-08-17] MEDS: NACL 0.9% IRR 250 ML BOTTLE IR SCH (13:00)
--- NOTE | 2017-08-17 13:34 | NUR ---
CM NOTE PER MIGUEL RICHARDSON CM IS NOT AUTHORIZING NEPTALI CONLEY. Addendum: 08/17/17 at 1446 by Christie Padilla CM PAULINA CONLEY MADE AWARE.
--- NOTE | 2017-08-17 14:00 | NUR ---
PATIENT IS AT BEDSIDE AT THIS TIME. PATIENT IS AWAKE. BREATHING IS UNLABORED AND SYMMETRICAL. PATIENT SHOWS NO SIGNS OF PAIN. UPDATED ON PATIENT'S CONDITION AND PLAN. WILL CONTINUE TO MONITOR PATIENT.
[2017-08-17] MEDS: DEXT 5% / NACL 0.45% 1,000 ML IV SCH (14:10)
--- NOTE | 2017-08-17 15:00 | NUR ---
CM NOTE PER [facility] PHIL BUENROSTRO PH# [phone], IF THE PATIENT WILL NEED A SNF, TO SEND TO [facility] IN [place]. SW WORKER AMRK SPOKE WITH PATIENT AND AND THEY TOLD HER THAT IF THE DOCTOR WILL SEE THE NEED FOR PATIENT TO GO TO A SNF, THEY ARE AGREEABLE AND THEY HAVE NO PREFERENCE FOR SNF. PER DARRIAN OF [facility] PH# [phone] FAX# [phone], THEY CAN ACCEPT THE PATIENT IF PATIENT WILL NEED SNF. PER MAT OF [facility] PH# [phone], PATIENT CAN GO TO [address] Thea ACOSTA WHEN READY FOR DISCHARGE, NUMBER TO CALL FOR REPORT [phone]. [facility] PORTER AWARE. PER [facility] PHIL BUENROSTRO, FOR [facility] AUTH# [id number]. CHARGE NURSE JESUSITA AWARE. Addendum: 08/17/17 at 1507 by Christie Padilla [facility] AWARE OF PATIENT'S DIALYSIS SCHEDULE AND HE SAID [facility] WILL ARRANGE PATIENT'S TRANSPORT TO DIALYSIS (WITH [facility]).
--- NOTE | 2017-08-17 15:06 | NUR ---
PAGED DR. COYNE REGARDING PT'S D/C TO SNF ORDER, AWAITING FOR CALL BACK.
--- NOTE | 2017-08-17 15:34 | NUR ---
08/17/17 RD FOLLOW UP COMPLETED. PLEASE REFER TO NUTRITION ASSESSMENT UNDER CARE ACTIVITY FOR ESTIMATED NUTRITIONAL NEEDS. CONTINUE CURRENT RENAL DIET TOLERATED NURSING TO CONTINUE TO ASSIST WITH FEEDS FOR INCREASED INTAKE RD TO FOLLOW-UP IN 2-3 DAYS PATIENT IS HIGH RISK. SB LISA, RD
[2017-08-17 15:59] VITALS: BP 116/57
--- NOTE | 2017-08-17 16:30 | NUR ---
PATIENT RESTING IN BED WITH AT BEDSIDE. PATIENT BREATHING WITHIN NORMAL LIMITS. NO SIGNS OF RESPIRATORY DISTRESS OR RESPIRATORY DEPRESSION. WILL CONTINUE TO MONITOR PATIENT.
--- NOTE | 2017-08-17 16:30 | NUR ---
PATIENT'S REFUSED PLACEMENT OF PATIENT AT [facility]. WILL NOTIFY CASE MANAGEMENT.
--- NOTE | 2017-08-17 16:36 | NUR ---
NOTIFIED MARK OF 'S REFUSAL OF [place]. MARK SAID THAT SHE'LL TALK TO PATIENT'S .
--- NOTE | 2017-08-17 16:54 | NUR ---
MARK ABLE TO TALK TO ABOUT PLACEMENT AT [facility]. PATIENT SAID SHE WILL CHECK OUT THE PLACE FOR HERSELF BEFORE PATIENT'S PLACEMENT INTO THE FACILITY.
--- NOTE | 2017-08-17 19:25 | NUR ---
ABLE TO TALK TO PATIENT'S AND DAUGHTER AT BEDSIDE. AND DAUGHTER DECLINED THE PLACEMENT OF PATIENT AT [facility]. DAUGHTER SAYS PATIENT WILL GO HOME WITH HER BUT SHE NEEDS TO ORDER A BED FOR HIM. WILL NOTIFY VISITOR USE ASSISTANT.
--- NOTE | 2017-08-17 19:29 | NUR ---
GAVE REPORT TO NIGHTSHIFT NURSE. AND DAUGHTER AT BEDSIDE. PATIENT IN STABLE CONDITION. PAGED DR. SARA HYMAN TO FOLLOW UP WITH WHAT HE WANTS TO ORDER FOR PATIENT.
--- NOTE | 2017-08-17 19:54 | NUR ---
SPOKE WITH DR. COYNE OVER THE PHONE AND NOTIFIED REGARDING PT'S REFUSAL TO SEND PT TO [facility]. NEW ORDER GIVEN. [facility] WAS HERE AND MADE AWARE OF THE CANCELLATION. CALLED [facility] [phone], NO ANSWER, ENDORSED TO ENTERPRISE SECURITY ARCHITECT NURSE TO FOLLOW UP.
[2017-08-17 20:00] VITALS: BP 139/86
--- NOTE | 2017-08-17 20:30 | NUR ---
AGRICULTURAL ENGINEER STUDENT AND INSTRUCTOR ADMINISTERED HEPARIN SQ INJECTION, PT TOLERATED WELL. PT IN STABLE CONDITION, NO SIGNS OF DISTRESS NOTED. BED IN LOWEST POSITION, CALL LIGHT WITHIN REACH. WILL CONTINUE TO MONITOR.
[2017-08-18] VITALS: BP 116/73
--- NOTE | 2017-08-18 | NUR ---
VITAL SIGNS WITHIN NORMAL LIMITS. PT IN STABLE CONDITION, NO SIGNS OF DISTRESS NOTED. BED IN LOWEST POSITION, CALL LIGHT WITHIN REACH. WILL CONTINUE TO MONITOR.
[2017-08-18 04:00] VITALS: BP 159/96
--- NOTE | 2017-08-18 04:00 | NUR ---
VITAL SIGNS WITHIN NORMAL LIMITS. PT IN STABLE CONDITION, NO SIGNS OF DISTRESS NOTED. BED IN LOWEST POSITION, CALL LIGHT WITHIN REACH. WILL CONTINUE TO MONITOR.
[2017-08-18] MEDS: INSULIN LISPRO SLIDING SCALE 100 UNITS/ML VIAL SUBQ PRN ×4 (06:43→21:23)
[2017-08-18] MEDS: BLOOD GLUCOSE MONITORING 1 DEV DEV FS SCH ×4 (06:43→21:24)
--- NOTE | 2017-08-18 07:15 | NUR ---
RECEIVED PATIENT REPORT FROM NIGHTSHIFT NURSE AT BEDSIDE. PATIENT IS AWAKE AT THIS TIME AND AROUSABLE TO HIS NAME. PATIENT IS A&OX1 AT THIS TIME. NO SIGNS OF RESPIRATORY DISTRESS OR RESPIRATORY DEPRESSION. PATIENT FLACC SCORE IS 0. UPDATED BOARD AND LOWERED BED TO LOWEST SETTING. WILL CONTINUE TO MONITOR PATIENT.
--- NOTE | 2017-08-18 07:38 | NUR ---
ENDORSED PT IN STABLE CONDITION TO DAY SHIFT NURSE FOR CONTINUITY OF CARE.
[2017-08-18 08:00] VITALS: BP 145/85
[2017-08-18] MEDS: LISINOPRIL 20 MG TAB PO SCH (08:26)
[2017-08-18] MEDS: VIT-B COMP/VIT-C/FOLIC ACID 1 TAB PO SCH (08:26)
[2017-08-18] MEDS: amLODIPine 5 MG TAB NG SCH (08:26)
[2017-08-18] MEDS: MORPHINE SULFATE 2 MG/ML SYR IVP PRN (08:30)
[2017-08-18] MEDS: EPOETIN ALFA 10,000 UNITS/ML VIAL SUBQ SCH (08:37)
--- NOTE | 2017-08-18 09:10 | NUR ---
PATIENT AWAKE AT THIS TIME. PATIENT BREATHING IS WITHIN NORMAL LIMITS. WILL CONTINUE TO MONITOR PATIENT.
[2017-08-18 09:40] LABS: BASOPHILS # (AUTO) 0.1 K/uL (0.00-0.22); BASOPHILS % (AUTO) 1.5 % (0.0-2.0); EOSINOPHILS # (AUTO) 0.2 K/uL (0-0.4); EOSINOPHILS % (AUTO) 3.9 % (0.0-4.0); HEMATOCRIT 33.6 % (36-52); HEMOGLOBIN 10.9 g/dL (12.0-18.0); LYMPHOCYTES # (AUTO) 1.2 K/uL (2.0-11.5); LYMPHOCYTES % (AUTO) 20.6 % (20.5-51.1); MEAN CORPUSCULAR HEMOGLOBIN 28 pg (27-31); MEAN CORPUSCULAR HGB CONC 33 g/dL (33-37); MEAN CORPUSCULAR VOLUME 87 fL (80-94); MONOCYTES # (AUTO) 0.8 K/uL (0.8-1.0); MONOCYTES % (AUTO) 12.8 % (1.7-9.3); NEUTROPHILS # (AUTO) 3.6 K/uL (1.8-7.7); NEUTROPHILS % (AUTO) 61.2 % (42.2-75.2); PLATELET COUNT (AUTO) 277 K/uL (140-450); RED BLOOD CELL COUNT(AUTO) 3.87 MIL/uL (4.20-6.10); RED CELL DISTRIBUTION WIDTH 16.8 % (11.6-13.7); WHITE BLOOD COUNT (AUTO) 5.9 K/uL (4.8-10.8)
[2017-08-18 09:55] LABS: ANION GAP 17.4 (8-16); CARBON DIOXIDE 22.4 mmol/L (21-32); POTASSIUM 3.8 mmol/L (3.5-5.1)
[2017-08-18 10:02] LABS: CREATININE 8.1 mg/dL (0.7-1.3)
--- NOTE | 2017-08-18 11:27 | NUR ---
HOST COORDINATOR note (dysphagia therapy provided and discharge summary report) [id number]. S/O: Pt was seen for dysphagia therapy following clearance by RN (Jonathan). Pt confused, talkative. Pt positioned fully upright in bed using HOB elevation and bed tilt functions for dysphagia therapy session. Then pt returned to low/locked bed position of pt's indicated comfort at end of session with bed alarm on. Per nursing, pt eating well and swallowing without difficulty. HOST COORDINATOR provided pt with education regarding purpose of dysphagia therapy. Pt did not appear to be able to fully benefit from education provided due to confusion/disorientation. No family present at this time. A/P: Pt tolerated PO trials of thin liquids via straw, applesauce via spoon, and dry cracker (all fed by HOST COORDINATOR as pt with bilateral mitten restraints in place at this time) all without overt signs/symptoms of aspiration. Pt with some oral residuals with solids, but these cleared with liquid f/u swallows. DISCHARGE SUMMARY REPORT Pt was provided with bedside swallow evaluation on 08/12/2017 with recommendations for NPO, continue alternative method(s) of nutrition/hydration/medication, dysphagia therapy to continue to assess pt's ability to take PO safely. Dysphagia therapy was attempted on 08/13/2017 (x2 attempts) and on 08/16/2017. Dysphagia therapy was provided on 08/18/2017. Recommend: 1) continue physician-ordered regular textures 2) continue physician-ordered thin liquids 3) feeding supervision/assistance 4) general aspiration precautions (including pt must be fully awake/alert/upright for any PO intakes, alternate small/slow bites and sips, stop giving PO if pt becomes less alert/SOB/coughing) 5) discharge pt from HOST COORDINATOR intervention at this time. Physician may reorder if further concerns arise, as appropriate. G-codes: [id number] [id number] [id number] [facility] NOMS level 5. PVE for d/w RN (Jonathan) prior to and following dysphagia therapy session.
--- NOTE | 2017-08-18 11:35 | NUR ---
PATIENT STARTED HEMODIALYSIS WITH DIALYSIS NURSE OJ. PATIENT IS AWAKE AT THIS TIME. VITAL SIGNS ARE WITHIN NORMAL LIMITS. WILL CONTINUE TO MONITOR PATIENT.
[2017-08-18 12:00] VITALS: BP 159/77
--- NOTE | 2017-08-18 12:30 | NUR ---
PATIENT ASLEEP AT THIS TIME. BREATHING WITHIN NORMAL LIMITS. WILL CONTINUE TO MONITOR PATIENT.
[2017-08-18] MEDS: NACL 0.9% IRR 250 ML BOTTLE IR SCH (13:00)
--- NOTE | 2017-08-18 13:32 | NUR ---
PHIL CAMPOS RECEIVED CALL FROM PATIENT'S ISABELA TEMPLETON PH# [phone] STATING THAT HER WILL BE STAYING AT HER DAUGHTER'S HOUSE IN [facility] FROM THE TIME OF DISCHARGE ONWARDS. SHE ALSO SAID THAT SHE HAS ALSO CALLED PATIENT'S INSURANCE IE REGARDING THE CHANGE IN ADDRESS. SPOKE WITH BENTON OF [facility] TO INFORM THEM THAT PATIENT IS NO LONGER GOING TO [facility] BECAUSE PATIENT'S IS NO LONGER AGREEABLE FOR PATIENT TO GO TO SNF. RECEIVED ORDER FOR PHYSICAL THERAPY AND TO ARRANGE OUTPATIENT DIALYSIS. RECEIVED ORDER FOR DME. FAXED ORDER FOR HH FOR PHYSICAL THERAPY AND DME TO [facility] [phone] AND SPOKE WITH PHIL CRUZ FROM [facility] PH# [phone] [phone] WHO SAID TO SEND HH ORDER TO [facility] AND TO SEND DME ORDER TO [facility]. FAXED HH ORDER TO [facility] [phone] AND SPOKE WITH SAMI PH# [phone] WHO SAID THAT THEY ARE ACCEPTING PATIENT AND WILL HAVE A NURSE TO SEE PATIENT WHEN DISCHARGED. FAXED DME ORDER TO [facility] [phone] PH# [phone]. [facility] PHIL CRUZ AWARE. [facility] P[facility]TER PH# [phone] MADE AWARE OF PATIENT'S CHANGE OF ADDRESS AND PER [facility] PHIL BUENROSTRO TO CALL [facility] AND TO REQUEST TO CHANGE PATIENT'S DIALYSIS CENTER FROM [facility] TO [facility] AND THEN TO SET UP THE TRANSPORT FOR DIALYSIS WITH [facility] ONCE THERE IS A CHAIR TIME IN [place]. SPOKE WITH PATIENT'S ISABELA TO INFORM HER AND SHE SAID SHE IS AGREEABLE SINCE HIS WILL BE LIVING WITH THEIR DAUGHTER IN [place]. I EMPHASIZED TO HER THAT PATIENT'S HOME HEALTH, DME WILL BE SET UP THE [place] ADDRESS SHE GAVE AND THAT DIALYSIS WILL BE SET UP WITH [facility] SO THEY CAN'T JUST KEEP ON [place] WHERE PATIENT IS STAYING. PATIENT'S ISABELA VERBALIZED UNDERSTANDING AND SHE STATED THAT HIS WILL BE STAYING WITH THEIR DAUGHTER IN [place] FROM THE TIME OF DISCHARGE ONWARDS AND THAT THEY ARE LOOKING FOR A NEW PCP FOR PATIENT IN THE [place] AREA. SPOKE WITH HOLLIS OF [facility] PH# [phone] WHO SAID TO CALL [facility] PH# [phone]. SPOKE WITH [facility] WHO SAID TO CALL [facility] PH# [phone]. SPOKE WITH RAPHAEL OF [facility] TO INFORM HIM OF THE REQUEST TO CHANGE DIALYSIS CENTER REF# [id number]. FAXED CLINICAL INFO REQUESTED BY [facility] TO FAX# [phone]. CALLED [facility] TO CONFIRM THAT SHE GOT THE FAX AND TO FOLLOW UP AND SHE SAID THAT THEY DO NOT HAVE A CHAIR TIME FOR PATIENT IN THE [facility] AT THIS TIME AND SHE SAID NOT TO DISCHARGE PATIENT UNTIL THERE IS A CHAIR TIME. [facility] ALSO SAID THAT IT TAKES TIME TO PROCESS THE CHANGE IN DIALYSIS CENTER AND THAT SHE DOES NOT KNOW WHEN THERE WILL BE AN AVAILABLE CHAIR TIME IN THE [facility] AND THAT IT DEFINITELY WILL NOT HAPPEN IN 24 HOURS. [facility] PHIL BUENROSTRO MADE AWARE.
--- NOTE | 2017-08-18 14:00 | NUR ---
PATIENT ASLEEP AT THIS TIME. NO SIGNS OF RESPIRATORY DISTRESS OR RESPIRATORY DEPRESSION. NO SIGNS OF PAIN. WILL CONTINUE TO MONITOR PATIENT.
[2017-08-18] MEDS: DEXT 5% / NACL 0.45% 1,000 ML IV SCH (14:10)
--- NOTE | 2017-08-18 14:55 | NUR ---
PATIENT COMPLETED DIALYSIS. 1.5 LITERS WERE REMOVED FROM PATIENT. PATIENT VITAL SIGNS WITHIN NORMAL LIMITS. PATIENT TOLERATED WELL. WILL CONTINUE TO MONITOR PATIENT.
[2017-08-18] MEDS: ACYCLOVIR IV SCH (15:09)
[2017-08-18] MEDS: NACL 0.9% IV SCH (15:09)
--- NOTE | 2017-08-18 16:50 | NUR ---
TALKED TO PATIENT'S . PATIENT'S SAYS, "MY CANNOT GO ANYWHERE. WE DO NOT HAVE THE HOSPITAL BED DELIVERED AND ALL THE OTHER SUPPLIES THAT HE NEEDS".
[2017-08-18 17:00] VITALS: BP 148/83
--- NOTE | 2017-08-18 17:19 | NUR ---
I CALLED [facility] TO FOLLOW UP WHEN THEY DELIVER THE BED, THEY SAID THAT THEIR STILL WAITING FOR AUTHORIZATION.
--- NOTE | 2017-08-18 19:37 | NUR ---
GAVE REPORT TO NIGHTSHIFT NURSE. PATIENT IN STABLE CONDITION.
--- NOTE | 2017-08-18 19:38 | NUR ---
RECEIVED PT FROM MINERVA HCAKETT PT UGANDAN SPEAKER AAOX4 SPEAKS MORE CLEAR, COOOPERATIVE ON TELEMETRY SR NOT DISTRESS NOTED AT THIS ;TIME INITIAL ASSESSMENT DONE
[2017-08-18 20:00] VITALS: BP 149/87
--- NOTE | 2017-08-18 21:30 | NUR ---
BLOOD SUGAR TEST 205 COVERAGE WITH HUMALOG 4 UNITS SUBQ FOLLOW PROTOCOL
[2017-08-19] VITALS: BP 149/84
--- NOTE | 2017-08-19 | NUR ---
PT SLEEPING NOT DISTRESS NOTED ON TELEMETRY SR INVERTED T;, REPOSITIONED Q2H
[2017-08-19 04:00] VITALS: BP 152/90
--- NOTE | 2017-08-19 04:00 | NUR ---
PT HAS BEEN MONITORING CLOSE PT FAROESE SPEAKER MORE AAOX3 PM TELEMETRY SR NOT DISTRESS NOTED
[2017-08-19] MEDS: INSULIN LISPRO SLIDING SCALE 100 UNITS/ML VIAL SUBQ PRN ×3 (05:46→20:39)
[2017-08-19] MEDS: BLOOD GLUCOSE MONITORING 1 DEV DEV FS SCH ×4 (05:47→20:40)
--- NOTE | 2017-08-19 06:52 | NUR ---
;BLOOD SUGAR TEST 206 COVERAGE WITH 4 UNITS SUBQ HUMALOG FOLLOWING PROTOCOL, PT SEEM MORE ALERT ORIENTED TO THE UNITS AND TIME AND PLACE
--- NOTE | 2017-08-19 07:13 | NUR ---
RECEIVED REPORT FROM THE ROLLER SKATE ASSEMBLER NURSE AT BEDSIDE FOR CONTINUITY OF CARE. PT IS AWAKE AND ORIENTED. INTRODUCED MYSELF AND UPDATED THE BOARD. PT IS ON BEDREST. SKIN INTACT. IV ON R FA 22G, D5 1/2 NS AT 10ML INFUSING. PER ROLLER SKATE ASSEMBLER, SS IS WORKING ON GETTING DME FOR HOME USE. ONCE SET, PT WILL BE GOING HOME. WILL CONTINUE TO MONITOR PT.
[2017-08-19 08:00] VITALS: BP 114/65
--- NOTE | 2017-08-19 08:10 | NUR ---
CHARU, RADIOLOGY PRACTITIONER ASSISTANT CALLED TO LET ME KNOW PT WILL NOT BE D/C TODAY D/T NOT HAVING HD APPT SET UP AND DME SENT TO HOME. WILL ENDORSE TO [facility].
--- NOTE | 2017-08-19 08:20 | NUR ---
GAVE REPORT TO HEIKE COWORKER. SHE WILL TAKE OVER PT CARE FOR TODAY. Addendum: 08/19/17 at 0930 by Ary Hemphill RN WRONG PT. QUIN HACKETT
--- NOTE | 2017-08-19 09:30 | NUR ---
SPOKE TO FAMILY. WANTED TO KNOW IF HE WILL BE D/C TODAY. NOTIFIED FAMILY, NOT TODAY.
[2017-08-19] MEDS: amLODIPine 5 MG TAB NG SCH (10:07)
[2017-08-19] MEDS: LISINOPRIL 20 MG TAB PO SCH (10:07)
[2017-08-19] MEDS: VIT-B COMP/VIT-C/FOLIC ACID 1 TAB PO SCH (10:07)
[2017-08-19 10:38] LABS: BASOPHILS # (AUTO) 0.1 K/uL (0.00-0.22); BASOPHILS % (AUTO) 1.7 % (0.0-2.0); EOSINOPHILS # (AUTO) 0.2 K/uL (0-0.4); EOSINOPHILS % (AUTO) 4.2 % (0.0-4.0); HEMATOCRIT 30.5 % (36-52); HEMOGLOBIN 10.4 g/dL (12.0-18.0); LYMPHOCYTES # (AUTO) 0.8 K/uL (2.0-11.5); LYMPHOCYTES % (AUTO) 18.6 % (20.5-51.1); MEAN CORPUSCULAR HEMOGLOBIN 29 pg (27-31); MEAN CORPUSCULAR HGB CONC 34 g/dL (33-37); MEAN CORPUSCULAR VOLUME 86 fL (80-94); MONOCYTES # (AUTO) 0.6 K/uL (0.8-1.0); MONOCYTES % (AUTO) 14.3 % (1.7-9.3); NEUTROPHILS # (AUTO) 2.7 K/uL (1.8-7.7); NEUTROPHILS % (AUTO) 61.2 % (42.2-75.2); PLATELET COUNT (AUTO) 259 K/uL (140-450); RED BLOOD CELL COUNT(AUTO) 3.55 MIL/uL (4.20-6.10); RED CELL DISTRIBUTION WIDTH 17.8 % (11.6-13.7); WHITE BLOOD COUNT (AUTO) 4.4 K/uL (4.8-10.8)
[2017-08-19 10:51] LABS: ANION GAP 14.9 (8-16); CARBON DIOXIDE 25.5 mmol/L (21-32); POTASSIUM 3.4 mmol/L (3.5-5.1)
[2017-08-19 10:55] LABS: CREATININE 5.9 mg/dL (0.7-1.3)
--- NOTE | 2017-08-19 11:10 | NUR ---
PT SLEEPING SOUNDLY. NO SIGNS OF DISTRESS. WILL CONTINUE TO MONITOR PT.
--- NOTE | 2017-08-19 11:25 | NUR ---
CM NOTE [facility]# [phone] THEY ARE STILL WORKING ON THE CHAIR TIME FOR DIALYSIS. PER VALENTIN OF [facility] PH# [phone] EXT [phone], THEY ARE AUTHORIZING THE PATIENT'S BED, COMMODE AND WHEELCHAIR BUT NOT THE TUB TRANSFER BENCH. PER MATI OF [facility] PH# [phone], THEY WILL BE DELIVERING THE DME TODAY TO THE PATIENT'S DAUGHTER'S HOME WHERE PATIENT WILL BE LIVING POST DISCHARGE. SPOKE WITH PATIENT'S ISABELA TO GIVE HER AN UPDATE.
[2017-08-19 12:00] VITALS: BP 137/73
--- NOTE | 2017-08-19 12:42 | NUR ---
PHIL NOTE RECEIVED CALL FROM [facility] AND SHE STATED THAT [facility] IN [place] WAS WILLING TO ACCEPT THE PATIENT BUT SHE TALKED TO PATIENT'S AND PATIENT'S STATED SHE WANTS HER TO BE SET UP IN [facility] BECAUSE IT'S NEAR A HOSPITAL. [facility] PHIL BUENROSTRO AWARE.
[2017-08-19] MEDS: ACYCLOVIR IV SCH (12:53)
[2017-08-19] MEDS: NACL 0.9% IV SCH (12:53)
--- NOTE | 2017-08-19 12:59 | NUR ---
1223 PER CM CHARU PT WAS GIVEN CHAIR TIME IN AN OP DIALYSIS CENTER IN [place] AND PER FACILITY THE PT'S CALLED THE CENTER AND INFORMED THEM THAT SHE DID NOT WANT A CENTER IN [place] BUT NOW WANTED A CENTER IN [place] SO THE CHAIR WAS CANCELLED. CALL PLACED TO ISABELA PT'S [phone] AND VERIFIED WITH HER THAT SHE HAD CANCELLED THE [place] OP CENTER AND STATED THAT SHE HAD INFORMED THE CM THAT SHE WANTED [place]. DISCUSSED WITH HER THAT SHE HAD INFORMED THE CM THAT PT WAS GOING TO LIVE WITH DAUGHTER IN [place] AND THAT IS WHERE SHE WANTED THE OP CENTER FOR DIALYSIS. INFORMED HER THAT THIS IS NOW ANOTHER DELAY IN PT'S DISCHARGE SHE ALSO DID NOT INFORM ANYONE TILL THE DAY OF PLANNED DISCHARGE AND A SNF BED HAD BEEN OBTAINED FOR PT THAT SHE DID NOT WANT PT TO GO TO SNF AND INSTEAD WANTED A HOME DISCHARGE BUT HAD ALSO NOT INFORMED ANYONE THAT PT WOULD BE MOVING FROM HIS [place] RESIDENCE TO HIS DAUGHTERS IN [place]. ISABELA STATED THAT SHE THOUGHT THAT PT WOULD BE GOING TO [facility] AND THAT'S WHY SHE DIDN'T INFORM ANYONE OF THE CHANGE IN RESIDENCE. I INFORMED HER THAT PRIOR ARRANGEMENTS HAD TO BE MADE WHEN CHANGING OP CENTERS AND OBTAINING EQUIPMENT AND THAT CM COULD HAVE BEEN WORKING ON THESE ARRANGEMENTS DURING HOSPITALIZATION. EXPLAINED TO HER THAT PHYSICIAN HAD INDICATED DAYS AGO THAT PT WAS READY FOR DISCHARGE AND NOW PT CANNOT DISCHARGE UNTIL AN OP DIALYSIS CHAIR IS SCHEDULED SHE CANCELLED THE ONE IN [place]. ISABELA THEN STATED "WELL HE CAN JUST GO BACK TO THE ONE IN [place]". I INFORMED HER THAT HIS CHAIR TIME AT [place] WAS NO LONGER AVAILABLE SHE HAD REQUESTED A TRANSFER. AT THAT TIME SHE THEN STATED THAT SHE WOULD CALL THE DIALYSIS UNIT HERSELF AND ENDED THE COMMUNICATION.
[2017-08-19] MEDS: NACL 0.9% IRR 250 ML BOTTLE IR SCH (13:00)
--- NOTE | 2017-08-19 13:00 | NUR ---
WOUND CARE. CLEANSED BLE WITH NORMAL SALINE. PATTED DRY. APPLIED BETADINE TO ALL THE SCABS AND DRY SKIN. PT TOLERATED WELL. WILL CONTINUE TO MONITOR PT.
[2017-08-19] MEDS: DEXT 5% / NACL 0.45% 1,000 ML IV SCH (14:10)
--- NOTE | 2017-08-19 14:39 | NUR ---
CM NOTE GAVE [facility] PHIL BUENROSTRO VERBAL CLINICAL UPDATE ON PATIENT AND SHE IS AWARE THAT WE ARE WAITING FOR CHAIR TIME FOR OUTPATIENT DIALYSIS. PER FARRAH OF [facility] PH# [phone] SHE'S WAITING IF DAVSHANAE MARR CAN TAKE PATIENT AND IF THEY WILL HAVE AN AVAILABLE CHAIR TIME. ONCE PATIENT HAS CHAIR TIME, TRANSPORT FOR OUTPATIENT DIALYSIS TO BE SET UP WITH [facility] TRANSPORTATION DEPT FAX# [phone]. CHARGE NURSE STANLEY DURAN. Addendum: 08/19/17 at 1451 by Christie Padilla CM FAXED LATEST PROGRESS NOTES TO [facility] [phone] [place] PH# [phone]
--- NOTE | 2017-08-19 15:38 | NUR ---
CALLING FOR PT UPDATE. GAVE HER INFORMATION. WILL BE COMING SOON.
[2017-08-19 16:00] VITALS: BP 120/66
--- NOTE | 2017-08-19 18:10 | NUR ---
PT EATING DINNER. NO SIGNS OF DISTRESS. NO COMPLAINTS. WILL CONTINUE TO MONITOR PT.
--- NOTE | 2017-08-19 19:21 | NUR ---
ENDORSED PT TO THE SENIOR HADOOP DEVELOPER RN AT BEDSIDE FOR CONTINUITY OF CARE. PT IS IN STABLE CONDITION.
--- NOTE | 2017-08-19 19:45 | NUR ---
RECEIVED PT FROM ABHISHEK HACKETT PT IS YAKUT SPEAKER AAOX4 AMBULATES WITH PIANO PROFESSOR IV ONRT FA INFUSING WELL ON TELEMETRY SR INVERTED T DENIES ANY PAIN INITIAL ASSESSMENT DONE
[2017-08-19 20:00] VITALS: BP 115/72
--- NOTE | 2017-08-19 21:30 | NUR ---
BLOOD SUGAR TEST 229 WAS COVERAGE WITH HUMALOG SUBQ U UNITS FOLLOWING PROTOCOL
[2017-08-20] VITALS: BP 148/74
--- NOTE | 2017-08-20 | NUR ---
PT REMAIN STBLE NOT DISTRESS NOTE ON TELMETRY SR BIPHASIC T SLEEPING WELL REPOSITIONED Q2H
--- NOTE | 2017-08-20 03:44 | NUR ---
SPONGE BATH GIVEN LINEN CHANGED ON TELE SR , NOT DISTRESS NOTED
[2017-08-20 04:00] VITALS: BP 134/81
[2017-08-20] MEDS: BLOOD GLUCOSE MONITORING 1 DEV DEV FS SCH ×2 (06:16→12:25)
--- NOTE | 2017-08-20 06:16 | NUR ---
PT AAOX4 WATCHING TV DENIES ANY PAIN OR DISCOMFORT, ON TELEMETRY SR REMAIN STABLE AT THIS DARRYL;E BLOOD SUGAR TEST 143 NOT COVERAGE
[2017-08-20 07:06] LABS: ANION GAP 16.6 (8-16); CARBON DIOXIDE 24.1 mmol/L (21-32); POTASSIUM 3.7 mmol/L (3.5-5.1)
[2017-08-20 07:57] LABS: CREATININE 7.6 mg/dL (0.7-1.3)
[2017-08-20 08:00] VITALS: BP 128/76
--- NOTE | 2017-08-20 08:30 | NUR ---
CM NOTE PER FARRAH OF [facility]# [phone], PATIENT IS SET UP FOR OUTPATIENT DIALYSIS ON Thursdays 2:45PM AT THE [facility], ADDRESS: [id number] [place] [address] PH# [phone]. FARRAH ALSO STATED THAT THE PATIENT WILL START DIALYSIS ON AUGUST 24, 2017Wednesday AT THE [facility]. FAXED TRANSPORTATION REQUEST FORM FOR OUTPATIENT DIALYSIS TO [facility] TRANSPORTATION DEPT [phone] PH# [phone].
[2017-08-20] MEDS: LISINOPRIL 20 MG TAB PO SCH (09:00)
[2017-08-20] MEDS: VIT-B COMP/VIT-C/FOLIC ACID 1 TAB PO SCH (09:00)
[2017-08-20] MEDS: amLODIPine 5 MG TAB NG SCH (09:00)
--- NOTE | 2017-08-20 11:34 | NUR ---
SPOKE WITH DR VALENZUELA TRANSPLANTER NOTIFIED HIM PATIENT IS DISCHARGE HOME AND NEXT AVAILABLE DIALYSIS DAY WILL BE ON WEDNESDAY . DR VALENZUELA AGREED .
[2017-08-20] MEDS: NACL 0.9% IV SCH (12:00)
[2017-08-20] MEDS: ACYCLOVIR IV SCH (12:00)
--- NOTE | 2017-08-20 12:51 | NUR ---
PHIL NOTE NING BRAVO OF [facility] TRANSPORTATION DEPT PH# [phone] THEY ARE STILL WORKING ON PATIENT'S OUTPATIENT DIALYSIS TRANSPORTATION. Addendum: 08/20/17 at 1317 by Christie Padilla CM SPOKE WITH SAMI OF [facility] TO INFORM THEM OF PLAN OF DISCHARGE TODAY AND SHE SAID THEY HAVE A NURSE/PT TO SEE PATIENT WHEN DISCHARGED FOR . SPOKE WITH [employer] [facility] PH# [phone] AND SHE CONFIRMED THAT PATIENT'S BED, WHEELCHAIR AND COMMODE HAVE BEEN DELIVERED ON 08/19/17 TO PATIENT'S DAUGHTER'S HOME WHERE PATIENT WILL BE STAYING.
[2017-08-20] MEDS: INSULIN LISPRO SLIDING SCALE 100 UNITS/ML VIAL SUBQ PRN (13:28)
--- NOTE | 2017-08-20 14:49 | NUR ---
PT NOTES ATTEMPTED TO SEE PATIENT, BUT RECEIVING HD. ATTEMPTED TO SEE PATIENT AGAIN AFTER HD, BUT PT REFUSED THERAPY D/T GOING HOME SHORTLY. NURSING STATES," PT IS SUPPOSED TO LEAVE HOME AFTER DIAYLSIS." EDUCATED PT ON IMPORTANCE OF PHYSICAL THERAPY. DISCUSSED WITH NURSING THAT PT REFUSED THERAPY TODAY. Addendum: 08/20/17 at 1522 by Ruma Barrett PT PHYSICAL THERAPY CO-SIGN The Physical Therapy Progress Notes documented by Ocean Freight Manager have been reviewed. Reviewed/Co-Signed by: Ruma Barrett PT Documentation Done by: Ronak aCrrillo, PENSION AGENT
--- NOTE | 2017-08-20 15:23 | NUR ---
CM NOTE PER FARRAH OF [facility] TRANSPORTATION DEPT PH# [phone], PATIENT'S OUTPATIENT DIALYSIS TRANSPORTATION HAS BEEN SET UP WITH [employer] PH# [phone] EVERY TUESDAYS/THURSDAYS/SATURDAYS. PATIENT'S DIALYSIS SCHEDULE IS EVERY WEDNESDAY/WEDNESDAY/WEDNESDAY 2:45PM STARTING ON AUGUST 24, 2017Wednesday AT THE LOCATED WITHIN [facility] ADDRESS: [id number] [place] [address]. SPOKE WITH PATIENT'S ISABELA AND SHE CONFIRMED THAT PATIENT'S BED, WHEELCHAIR, COMMODE WAS DELIVERED YESTERDAY TO PATIENT'S DAUGHTER'S HOME WHERE PATIENT WILL BE LIVING POST DISCHARGE. I INFORMED HER THAT HOME HEALTH IS AWARE OF PATIENT BEING DISCHARGED TODAY, ALSO OF PATIENT'S DIALYSIS SCHEDULE IN LOCATED WITHIN [facility] IN [place] AND THAT OUTPATIENT DIALYSIS TRANSPORTATION HAS BEEN ARRANGED BY [facility] TRANSPORTATION WITH [employer]. CHARGE NURSE STANLEY DURAN.
[2017-08-20 15:31] VITALS: BP 132/76
--- NOTE | 2017-08-20 16:30 | NUR ---
DISCHARGED HOME AND INSTRUCTIONS GIVEN AND UNDERSTOOD.IV AND TEL REMOVED.TAKEN OUT IN W/C ACCOMPANIED BY FAMILY
== END 2017-08-20 18:00 | disposition home or self-care (01) | DRG 466 ==
LOC: EDBD 00:25 → MED 00:25 → MIC 06:07 → MTU 08-12 15:15
PROVIDERS: ADMIT Internal Medicine Pulmonary Disease; ATTEND Internal Medicine Pulmonary Disease
PROC: 009U3ZX Drainage of Spinal Canal, Percutaneous Approach, Diagnostic (ICD-10-PCS; principal; 2017-08-09)
PROC: 5A1D70Z Performance of Urinary Filtration, Intermittent, Less than 6 Hours Per Day (ICD-10-PCS; 2017-08-09)
PROC: 5A1D70Z Performance of Urinary Filtration, Intermittent, Less than 6 Hours Per Day (ICD-10-PCS; 2017-08-11)
PROC: 5A1D70Z Performance of Urinary Filtration, Intermittent, Less than 6 Hours Per Day (ICD-10-PCS; 2017-08-13)
PROC: 5A1D70Z Performance of Urinary Filtration, Intermittent, Less than 6 Hours Per Day (ICD-10-PCS; 2017-08-16)
PROC: 5A1D70Z Performance of Urinary Filtration, Intermittent, Less than 6 Hours Per Day (ICD-10-PCS; 2017-08-18)
PROC: 5A1D70Z Performance of Urinary Filtration, Intermittent, Less than 6 Hours Per Day (ICD-10-PCS; 2017-08-20)
DX: T82.7XXA Infection and inflammatory reaction due to other cardiac and vascular devices, implants and grafts, initial encounter (principal); N18.6 End stage renal disease; J96.00 Acute respiratory failure, unspecified whether with hypoxia or hypercapnia; B00.4 Herpesviral encephalitis; A41.9 Sepsis, unspecified organism; G93.41 Metabolic encephalopathy; K85.90 Acute pancreatitis without necrosis or infection, unspecified; G03.9 Meningitis, unspecified; I12.0 Hypertensive chronic kidney disease with stage 5 chronic kidney disease or end stage renal disease; E11.21 Type 2 diabetes mellitus with diabetic nephropathy; E11.22 Type 2 diabetes mellitus with diabetic chronic kidney disease; D64.9 Anemia, unspecified; Z99.2 Dependence on renal dialysis; E78.5 Hyperlipidemia, unspecified; E11.65 Type 2 diabetes mellitus with hyperglycemia; E11.649 Type 2 diabetes mellitus with hypoglycemia without coma; F10.20 Alcohol dependence, uncomplicated; Y90.9 Presence of alcohol in blood, level not specified; E11.51 Type 2 diabetes mellitus with diabetic peripheral angiopathy without gangrene; E78.00 Pure hypercholesterolemia, unspecified; Z83.6 Family history of other diseases of the respiratory system; Z83.3 Family history of diabetes mellitus; Z82.3 Family history of stroke
CPT/HCPCS: 36415; 62270; 70450; 71045; 80048; 80053; 80202; 80305; 81001; 82009; 82140; 82948; 83605; 83690; 83735; 83880; 84100; 84157; 84484; 84550; 85025; 85610; 85651; 86140; 86704; 86706; 86803; 87040; 87081; 87086; 87205; 87340; 87529; 87804; 90935; 92610; 92700; 93005; 96365; 96367; 96368; 97110; 97116; 97140; 97530; 97799; 99291; G0482; J0133; J0360; J0696; J0885; J1450; J1644; J1815; J2001; J2060; J2185; J2270; J2405; J2543; J3370; J3475; J3490; J7030; J7060; Q0092

== ENCOUNTER 2018-02-08 00:20 | Inpatient (IN) | payer OTHER ==
--- NOTE | 2018-02-05 23:53 | NUR ---
BP REASSESSED. 202/92. RECHECKED 15 MINUTES LATER. 200/95 AND THEN AGAIN 201/95. MD NOTIFIED. NEW ORDERS WILL FOLLOW. Addendum: 02/09/18 at 0123 by River Cook RN TEMPERATURE 98.7. Addendum: 02/09/18 at 0123 by River Cook RN INTERVENTION DONE ON 02/08/2018 AT 2253.
[~2018-02-08] VITALS: Ht 165.1 cm; Wt 55.8 kg
[2018-02-08] VITALS (7 sets, daily range): BP systolic 150–205; BP diastolic 73–109
[~2018-02-08 00:20] MED LIST changes: +AMLO10TA PO; +ATOR20TA PO; +CLON0.2T43 PO; +METO50TE2 PO; +PHO667 PO; -PIPE50SO5 IV; -PT DOES NOT KNOW MED; -[UNRECOGNIZED DRUG - REMARK]
--- NOTE | 2018-02-08 00:42 | NUR ---
TO BED 3 11 VIA W/C, REPORT GIVEN TO JOHANA HACKETT
[2018-02-08] MEDS ORDERED: NACL 0.9% 500 ML IV SCH (00:50)
[2018-02-08] MEDS ORDERED: NACL 0.9% 500 ML IV ONE (00:50)
--- NOTE | 2018-02-08 00:53 | NUR ---
67 Y/O M W/C/O GEN WEAKNESS, PT STATES, "I CAN'T BREATH", CHILLS, FEVER, AND COUGH STARTED AN HOUR AGO;PT DENIES N/V/D; SKIN IS INTACT, PINK/WARM/DRY; AAOX4, PERRL; BREATHING UNLABORED; HR EVEN AND REGULAR, BL PERIPHERAL PULSES PRESENT; BS ACTIVE X4, NO TENDERNESS TO PALPATION, NO HEPATOSPLENOMEGALLY PALPATED, RESONANT TO PERCUSSION; PT DENIES ANY FEVER, CP, SOB, OR COUGH AT THIS TIME; PT STATES 0/10 PAIN AT THIS TIME; VSS; PATIENT POSITIONED FOR COMFORT; HOB ELEVATED; BEDRAILS UP X2; BED DOWN.
[2018-02-08] MEDS ORDERED: NITROGLYCERIN 2% 1 GM PKT TP ONE (01:10)
[2018-02-08] MEDS ORDERED: KETOROLAC 15 MG/ML VIAL IVP ONE (01:10)
[2018-02-08] MEDS ORDERED: FUROSEMIDE 40 MG/4 ML VIAL IVP ONE (01:10)
--- NOTE | 2018-02-08 01:15 | NUR ---
PT HAS HISTORY OF DM, HTN, DYALISIS PER . DYALSIS PORT NOTED IN R UPPER CHEST
[2018-02-08 01:30] LABS: HEMATOCRIT 32.4 % (36-52); HEMOGLOBIN 10.4 g/dL (12.0-18.0); MEAN CORPUSCULAR HEMOGLOBIN 29 pg (27-31); MEAN CORPUSCULAR HGB CONC 32 g/dL (33-37); MEAN CORPUSCULAR VOLUME 89.4 fL (80-94); PLATELET COUNT (AUTO) 165 K/uL (140-450); RED BLOOD CELL COUNT(AUTO) 3.62 MIL/uL (4.20-6.10); RED CELL DISTRIBUTION WIDTH 17.2 % (11.6-13.7); WHITE BLOOD COUNT (AUTO) 8.7 K/uL (4.8-10.8)
[2018-02-08 01:31] LABS: LYMPHOCYTES % (MANUAL) 9 % (20-46); MONOCYTES % (MANUAL) 5 % (5-12)
[2018-02-08] MEDS ORDERED: PIPERACILLIN/TAZOBACTAM 3.375 GM in DEXTROSE 5% 50 ML IV ONE (01:40)
[2018-02-08 01:41] LABS: ALBUMIN 4.1 g/dL (3.4-5.0); ANION GAP 16.5 (8-16); CARBON DIOXIDE 25.9 mmol/L (21-32); TOTAL BILIRUBIN 1.2 mg/dL (0.0-1.0)
[2018-02-08 01:44] LABS: CREATININE 7.8 mg/dL (0.7-1.3); POTASSIUM 6.4 mmol/L (3.5-5.1)
--- NOTE | 2018-02-08 01:45 | NUR ---
Critical lab read back from Lab: Potassium 6.4, Creat 7.8, and Lactic 5.3. Dr Burns notified immediately.
[2018-02-08] MEDS ORDERED: SODIUM POLYSTYRENE 15 GM/60 ML UDBTL PO ONE (01:50)
[2018-02-08] MEDS ORDERED: INSULIN REGULAR, HUMAN 100 UNIT/ML VIAL SUBQ ONE (01:50)
[2018-02-08] MEDS ORDERED: DEXTROSE 50% 50 ML SYR IVP ONE (01:50)
[2018-02-08] MEDS ORDERED: PIPERACILLIN/TAZOBACTAM 3.375 GM VIAL IV ONE (02:01)
[2018-02-08] MEDS ORDERED: ONDANSETRON 4 MG/2 ML VIAL IVP PRN (02:35)
[2018-02-08] MEDS ORDERED: HYDROcodone/APAP 7.5/325 MG 1 TAB PO PRN (02:35)
[2018-02-08] MEDS ORDERED: ACETAMINOPHEN 325 MG TAB PO PRN (02:35)
[2018-02-08] MEDS ORDERED: ALBUTEROL SULFATE/IPRATROPIU 3 ML SOL IH PRN (02:45)
[2018-02-08] MEDS ORDERED: DEXTROSE 50% 50 ML SYR IVP PRN (02:45)
[2018-02-08 02:57] LABS: CHOL/HDL RATIO 2.1 (1-4.5)
[2018-02-08 03:05] LABS: FREE T4 (FREE THYROXINE) 1.34 ng/dL (0.76-1.46); PHOSPHORUS 4.9 mg/dL (2.5-4.9); THYROID STIMULATING HORMONE 3.84 uIU/mL (0.34-3.74)
--- NOTE | 2018-02-08 03:07 | NUR ---
Report given and care transfered to Federica RN room 114. Pt tansported via gurney with vss.
--- NOTE | 2018-02-08 03:10 | NUR ---
RECEIVED PT FROM ER VIA HOSSEIN PT SLOVAK SPEAKER AAOX4 WITH GENERALIZED WEAKNESS DX PNA, CHF AND HYPERKALEMIA, PRODUCTIVE COUGH YELLOW COLOR ON TELEMETRY SR, HL ON RT AC PATENT SCABS ON RT FOOT BETWEEN SECOND AND THIRD TOE AND SCAR ON RT LATERAL FOOT , CENTRAL LINE ON RT UPPER CHEST, PT IS ORIENTED TO THE FLOOR CALL LIGHT WITHIN REACH DR ANDRE IS HERE AND SEE THE PT
[2018-02-08] MEDS ORDERED: METOPROLOL SUCCINATE 50 MG TABER PO SCH (04:00)
[2018-02-08] MEDS: NACL 0.9% 1,000 ML IV SCH (04:05)
[2018-02-08] MEDS ORDERED: ALBUTEROL SULFATE/IPRATROPIU 3 ML SOL IH SCH (06:00)
[2018-02-08] MEDS: cloNIDine 0.1 MG TAB PO SCH ×3 (06:19→20:42)
--- NOTE | 2018-02-08 06:27 | NUR ---
BLOOD SUGAR TEST 58 GIVEN D50% 50 MLIVP PT WILL BE MONITORING PT ON TELEMETRY SR
[2018-02-08] MEDS: BLOOD GLUCOSE MONITORING 1 DEV DEV FS SCH ×4 (07:24→20:40)
--- NOTE | 2018-02-08 07:24 | NUR ---
AFTER D50% 50 ML IVP GIVEN FOR BS 58 MONITORING BS AT THIS TIME BS 154. PT WILL BE ENDORSED TO ABHISHEK HACKETT FOR CONTINE CARE
--- NOTE | 2018-02-08 07:27 | NUR ---
called lior gavin and informed that pt will have dialysis today.
--- NOTE | 2018-02-08 07:34 | NUR ---
PATIENT HAS BEEN SCREENED AND CATEGORIZED HIGH NUTRITION RISK. PATIENT WILL BE SEEN WITHIN 1-2 DAYS OF ADMISSION. 02/08/18 02/09/[address]
[2018-02-08 08:16] LABS: BASOPHILS % (AUTO) 0.3 % (0.0-2.0); EOSINOPHILS % (AUTO) 0.1 % (0.0-4.0); HEMATOCRIT 28.9 % (36-52); HEMOGLOBIN 9.8 g/dL (12.0-18.0); LYMPHOCYTES # (AUTO) 0.4 K/uL (2.0-11.5); LYMPHOCYTES % (AUTO) 5.9 % (20.5-51.1); MEAN CORPUSCULAR HEMOGLOBIN 29 pg (27-31); MEAN CORPUSCULAR HGB CONC 34 g/dL (33-37); MEAN CORPUSCULAR VOLUME 86.9 fL (80-94); MONOCYTES # (AUTO) 0.5 K/uL (0.8-1.0); NEUTROPHILS # (AUTO) 5.5 K/uL (1.8-7.7); NEUTROPHILS % (AUTO) 86.7 % (42.2-75.2); PLATELET COUNT (AUTO) 115 K/uL (140-450); RED BLOOD CELL COUNT(AUTO) 3.33 MIL/uL (4.20-6.10); RED CELL DISTRIBUTION WIDTH 17.7 % (11.6-13.7); WHITE BLOOD COUNT (AUTO) 6.4 K/uL (4.8-10.8)
[2018-02-08] MEDS: LACTOBACILLUS RHAMNOSUS GG 1 EACH CAP PO SCH (08:33)
[2018-02-08] MEDS: ATORVASTATIN 20 MG TAB PO SCH (08:33)
[2018-02-08] MEDS: METOPROLOL 50 MG TAB PO SCH ×2 (08:33→20:42)
[2018-02-08] MEDS: DOCUSATE SODIUM 100 MG GELCAP PO SCH ×2 (08:33→20:42)
[2018-02-08] MEDS: amLODIPine 5 MG TAB PO SCH (08:33)
[2018-02-08] MEDS: CALCIUM ACETATE 667 MG TAB PO SCH ×3 (08:34→17:09)
--- NOTE | 2018-02-08 08:41 | NUR ---
ADMINISTERED MORNING MEDS. TOLERATED WELL. HELD CLONIDINE. LAST GIVEN 06 THIS MORNING. TOO CLOSE FOR READMIN. ASSISTED PT TO THE BATHROOM. ANOTHER BM. DR HERNANDEZ CALLED. CHEM NOT RESULTED YET. ORDERS TO CALL [facility] FOR DIALYSIS TODAY AND CALL HIM FOR ORDERS ONCE CHEM RESULTS ARE IN. WILL CONTINUE TO MONITOR PT. Addendum: 02/08/18 at 0848 by Ary Hemphill RN WILL NEED TO REEXAM THE IV SITE. MAY NEED NEW IV SITE OR MAYBE ABLE TO SALVAGE.
--- NOTE | 2018-02-08 08:42 | NUR ---
SPOKE WITH ABHISHEK HACKETT TO RECOMMEND RENAL DIET ALONG WITH [facility] [address] GM [address]ET[address]
[2018-02-08 08:50] LABS: ANION GAP 18.5 (8-16); CARBON DIOXIDE 26.2 mmol/L (21-32); POTASSIUM 5.7 mmol/L (3.5-5.1)
[2018-02-08 08:51] LABS: MAGNESIUM 2.1 mg/dL (1.8-2.4); PHOSPHORUS 4.8 mg/dL (2.5-4.9)
--- NOTE | 2018-02-08 11:00 | NUR ---
ECHO BEING DONE IN ROOM WITH TECH.
--- NOTE | 2018-02-08 11:10 | NUR ---
PRE K SPECIAL EDUCATION TEACHER IS HERE. PT WILL HAVE DIALYSIS. CONSENT IN CHART. LABS PRINTED. ORDER RECEIVED FROM DR. HERNANDEZ.
[2018-02-08] MEDS: PIPER/TAZO 2.25GM/D5W PREMIX 50 ML IV SCH ×2 (13:00→20:41)
[2018-02-08] MEDS: ALBUTEROL SULFATE/IPRATROPIU 3 ML SOL IH SCH ×2 (13:00→19:01)
--- NOTE | 2018-02-08 13:00 | NUR ---
HELD ZOSYN D/T DIALYSIS. PT TOLERATING WELL. HELMET HAT PUNCHER AT BEDSIDE. WILL CONTINUE TO MONITOR PT.
[2018-02-08] MEDS: INSULIN LISPRO SLIDING SCALE 100 UNITS/ML VIAL SUBQ PRN (13:06)
--- NOTE | 2018-02-08 13:14 | NUR ---
PT ON DIALYSIS. HHN TX NOT GIVEN. NO SOB OR DISTRESS NOTED. WILL CONTINUE TO MONITOR.
--- NOTE | 2018-02-08 13:44 | NUR ---
RECEIVED BEDSIDE REPORT FROM PRIMARY NURSE. LUNCH RELIEF NURSE ADMINISTERED PHOSLO. PATIENT CURRENTLY GETTING DIALYSIS. PATIENT IN STABLE CONDITION. WILL CONTINUE TO MONITOR THE PATIENT
--- NOTE | 2018-02-08 14:21 | NUR ---
02/08/18 RD INITIAL ASSESSMENT COMPLETED PLEASE REFER TO NUTRITION ASSESSMENT UNDER CARE ACTIVITY FOR ESTIMATED NUTRITIONAL NEEDS. 1. CONTINUE CCHO 60 GM DIET TOLERATED 2. RECOMMEND RENAL AND CCHO 60 GM DIET TOLERATED 3. PROVIDED NUTRITION EDUCATION FOR RENAL AND DIABETES 4. RD TO FOLLOW-UP 3-5 DAYS, MODERATE RISK [address]COLM [address]EN RD
--- NOTE | 2018-02-08 15:00 | NUR ---
FINISHED DIALYSIS. TOTAL OUTPUT 3L. PT TOLERATED WELL. EATING LATE LUNCH. BARELY TOUCHED. DRANK COFFEE. WILL CONTINUE TO MONITOR PT.
--- NOTE | 2018-02-08 15:33 | NUR ---
Scrum Product Owner Note: I called and spoke with patient's Melody Rae . Per Melody, prior to hospital admission patient was living with her at [place], [place]. She stated patient has been staying with her for 10 days. She reported prior to that patient was living with their daughter [place]ja at [address] [place] [address]. She told me Alicja is currently on vacation, therefore, she is taking care of patient at her [place] home. She informed me Alicja is in the process of moving from [place] to [place], [place], she is selling her [place] house and will close escrow on Feb 17, 2018. She stated Alicja has been paying a caregiver to assist patient with ADLs at Melody's home. Patient has recently been going to [facility] on Tuesdays, , and Saturdays at 2:45pm. She reported patient's pcp and customs examiner are in [place] and [place], [place]. Melody stated patient will either return to her home in [place], [place] upon discharge or to Alicja home, she stated she will inform us in case home health services and/or DME is order for patient by MD. She informed me patient has been at [facility] ([facility]) previously. Patient has a hospital bed, walker, wheelchair, commode, and home O2 at home, no home health services. Melody reported she brought patient to [facility] because MDs are familiar with patient's medical history. I called and spoke with LEW Go from [facility] and confirmed patient's outpatient dialysis schedule. Per LEW Go, patient is one of their "visitor patients" and today was his last scheduled day of dialysis at their facility. Director Industrial will follow up with Service Delivery Analyst Shania from [facility] regarding patient's outpatient dialysis schedule and [facility] facility.
--- NOTE | 2018-02-08 16:50 | NUR ---
FIXED PT'S IV SITE. IV INFUSING WELL. EXPLAINED PT THERE IS AN ORDER FOR URINE. STRAIGHT CATHERIZATION. PT REFUSED. "TOO PAINFUL. HAD IT DONE AT [facility]." NO SPUTUM COLLECTED. ONLY DRY COUGH. PER PT, WILL TRY TO GET SAMPLE OF SPUTUM AND URINE TOMORROW MORNING. NOTIFIED THAT BOTH SAMPLES WEREN'T COLLECTED. AWARE. Addendum: 02/08/18 at 1816 by Ary Hemphill RN LATE: PT WASN'T WEARING HIS VENTURI MASK, O2 SATURATING IN THE 70'S. ADMINISTERED NC 4L. PT NOW SATURATING AT 93-94%. NOTIFIED . AWARE.
[2018-02-08] MEDS: FERROUS GLUCONATE 324 MG TAB PO SCH (17:09)
--- NOTE | 2018-02-08 18:16 | NUR ---
PT SLEEPING SOUNDLY WITH NC ON. NO SIGNS OF DISTRESS. WILL CONTINUE TO MONITOR PT.
--- NOTE | 2018-02-08 19:25 | NUR ---
ENDORSED PT TO THE PERSONNEL ARBITRATOR NURSE AT BEDSIDE FOR CONTINUITY OF CARE. PT IS IN STABLE CONDITION.
--- NOTE | 2018-02-08 19:26 | NUR ---
REPORT RECEIVED FROM AM NURSE AT BEDSIDE. PT IN STABLE CONDITION. AAOX4. INTRODUCED SELF TO PT AND BOARD UPDATED. PT ON 4L VIA NC. AMBULATION WITH ASSIST BUT ALSO HAS A WHEELCHAIR. IV SITE PATENT AND INTACT. PT HAS HEMODIALYSIS ACCESS ON THE UPPER RIGHT CHEST. SKIN WARM, DRY, AND INTACT WITH NO OPEN WOUNDS. BED LOCKED IN LOW POSITION. CALL HARDING WITHIN REACH.
--- NOTE | 2018-02-08 20:00 | NUR ---
PT BLOOD PRESSURE 198/98. 2100 MEDICATIONS HAVE BLOOD PRESSURE MEDS. WILL MEDICATE.
--- NOTE | 2018-02-08 20:40 | NUR ---
CHEIKH LEAL. BS 117 AND NO INSULIN COVERAGE NEEDED. CATAPRES, COLACE, LOPRESSOR GIVEN. TYL GIVEN FOR TEMP OF 101. PT TOLERATED WELL.
--- NOTE | 2018-02-08 22:12 | NUR ---
BLOOD PRESSURE REASSESS. 205/96. CHECKED AGAIN 5 MINUTES LATER 201/96. MD NOTIFIED. NEW ORDERS WILL FOLLOW.
--- NOTE | 2018-02-08 22:53 | NUR ---
MD ORDERED VASOTEC. VASOTEC GIVEN IVP. PT TOLERATED WELL. WILL CONTINUE TO MONITOR.
[2018-02-08] MEDS ORDERED: ENALAPRILAT 2.5 MG/2 ML VIAL IVP SCH (23:00)
[2018-02-09] VITALS: BP 202/92
--- NOTE | 2018-02-09 00:46 | NUR ---
PT B/P 199/[address] COOK TO NOTIFY OF CONTINUED HIGH B/P. ORDER FOR HYDRALAZINE 10 MG TAB PO. WILL FOLLOW WITH MD ORDERS AND REASSESS V/S. Addendum: 02/10/18 at 0255 by Divina Rosales RN DATE 02/10
--- NOTE | 2018-02-09 01:44 | NUR ---
ANOTHER DOSE OF VASOTEC GIVEN. PT TOLERATED WELL. WILL REASSESS IN 1 HOUR.
[2018-02-09] MEDS ORDERED: ENALAPRILAT 2.5 MG/2 ML VIAL IVP SCH ×2 (02:00→23:00)
[2018-02-09] MEDS: NACL 0.9% 1,000 ML IV SCH ×2 (02:34→09:49)
--- NOTE | 2018-02-09 02:50 | NUR ---
PT BP 203/91. MD NOTIFIED AND PUT IN NEW ORDERS.
[2018-02-09] MEDS ORDERED: LABETALOL 100 MG/20 ML VIAL IV SCH ×2 (03:30→04:30)
--- NOTE | 2018-02-09 03:30 | NUR ---
NEW ORDER FOR LABETALOL GIVEN 20MG. [facility] EXPLAINED THAT ONLY 10MG MAY BE GIVEN FOR TELE PATIENTS. NOTIFIED.
[2018-02-09] MEDS ORDERED: LABETALOL 100 MG/20 ML VIAL ONE (03:36)
[2018-02-09 04:00] VITALS: BP 192/91
--- NOTE | 2018-02-09 04:10 | NUR ---
PHARMACY CALLED TO VERIFY THE SCHEDULE AND STRENGTH OF LABETALOL. WILL BE VERIFIED.
[2018-02-09] MEDS: PIPER/TAZO 2.25GM/D5W PREMIX 50 ML IV SCH ×3 (04:27→21:00)
--- NOTE | 2018-02-09 05:30 | NUR ---
BP ASSESSED AFTER LABETALOL GIVEN. STILL ELEVATED AT 196/93. PULSE 61. MD NOTIFIED. MD ORDERED TO GIVE MORNING BLOOD PRESSURE MEDS EARLY.
[2018-02-09] MEDS: BLOOD GLUCOSE MONITORING 1 DEV DEV FS SCH ×4 (05:56→21:00)
[2018-02-09] MEDS: INSULIN LISPRO SLIDING SCALE 100 UNITS/ML VIAL SUBQ PRN ×3 (05:57→23:11)
[2018-02-09] MEDS: amLODIPine 5 MG TAB PO SCH (05:58)
[2018-02-09] MEDS: METOPROLOL 50 MG TAB PO SCH ×2 (05:58→21:00)
--- NOTE | 2018-02-09 05:58 | NUR ---
CATAPRES, LOPRESSOR, AND AMLODIPINE GIVEN EARLY DUE TO ELEVATED BLOOD PRESSURE THROUGHOUT THE NIGHT GREATER THAN 190 PER MD ORDER. PT TOLERATED WELL. Addendum: 02/09/18 at 0650 by River Cook RN BS 151. 2 UNITS OF HUMALOG GIVEN.
[2018-02-09] MEDS: cloNIDine 0.1 MG TAB PO SCH ×2 (05:59→22:30)
[2018-02-09 06:55] LABS: BASOPHILS % (AUTO) 0.5 % (0.0-2.0); EOSINOPHILS # (AUTO) 0.1 K/uL (0-0.4); EOSINOPHILS % (AUTO) 1.3 % (0.0-4.0); HEMATOCRIT 28.5 % (36-52); HEMOGLOBIN 9.6 g/dL (12.0-18.0); LYMPHOCYTES # (AUTO) 0.6 K/uL (2.0-11.5); LYMPHOCYTES % (AUTO) 14.7 % (20.5-51.1); MEAN CORPUSCULAR HEMOGLOBIN 29 pg (27-31); MEAN CORPUSCULAR HGB CONC 34 g/dL (33-37); MEAN CORPUSCULAR VOLUME 86.5 fL (80-94); MONOCYTES # (AUTO) 0.4 K/uL (0.8-1.0); MONOCYTES % (AUTO) 8.5 % (1.7-9.3); NEUTROPHILS # (AUTO) 3.1 K/uL (1.8-7.7); PLATELET COUNT (AUTO) 112 K/uL (140-450); RED CELL DISTRIBUTION WIDTH 17.4 % (11.6-13.7); WHITE BLOOD COUNT (AUTO) 4.1 K/uL (4.8-10.8)
[2018-02-09 07:17] LABS: ANION GAP 11.6 (8-16); CARBON DIOXIDE 28.4 mmol/L (21-32)
[2018-02-09 07:21] LABS: MAGNESIUM 1.7 mg/dL (1.8-2.4); PHOSPHORUS 5.1 mg/dL (2.5-4.9)
[2018-02-09] MEDS: ALBUTEROL SULFATE/IPRATROPIU 3 ML SOL IH SCH ×3 (07:25→19:43)
--- NOTE | 2018-02-09 07:25 | NUR ---
SATURATION 100% ON SUPPLEMENTAL OXYGEN AT 4 LPM VIA NC POST HHN THERAPY TITRATED FIO2 TO 2 LPM ARPAN/RN AWARE
--- NOTE | 2018-02-09 07:25 | NUR ---
REPORT GIVEN TO AM NURSE. PT IN STABLE CONDITION.
--- NOTE | 2018-02-09 07:30 | NUR ---
RECEIVED REPORT FROM THIRD RAIL INSTALLER RN. PT RESTING IN BED. ALERT ORIENTED TO TIME, PLACE AND PERSON. SKIN DRY AND WARM TO TOUCH. ON NC 2 LTR/MIN. NO ACUTE RESPIRATORY DISTRESS NOTED. LUNGS WHEEZES ON AUSCULTATION. DIALYSIS CATHETER NOTED ON RU CHEST. DRESSING INTACT. NO ACTIVE BLEEDING NOTED AT SITE. RIGHT AC 20 G. NS RUNNING AT 15 ML/HR. SITE INTACT. ABDOMEN SOFT, ROUND AND NON-TENDER. ACTIVE BOWEL SOUND. PT ON SCDS. DENIES ANY PAIN AT THIS TIME. YELLOW SOCKS ON. HOB ELEVATED. BED IN LOW POSITION LOCKED. CALL LIGHT WITHIN REACH. WILL CONTINUE TO MONITOR.
[2018-02-09 07:38] LABS: CREATININE 5.4 mg/dL (0.7-1.3)
[2018-02-09 08:00] VITALS: BP 165/78
[2018-02-09] MEDS: ATORVASTATIN 20 MG TAB PO SCH (08:42)
[2018-02-09] MEDS: DOCUSATE SODIUM 100 MG GELCAP PO SCH ×2 (08:42→21:00)
[2018-02-09] MEDS: hydrALAZINE 10 MG TAB PO SCH ×3 (08:42→17:29)
[2018-02-09] MEDS: LACTOBACILLUS RHAMNOSUS GG 1 EACH CAP PO SCH (08:42)
[2018-02-09] MEDS: CALCIUM ACETATE 667 MG TAB PO SCH ×3 (08:43→17:28)
[2018-02-09] MEDS: VIT-B COMP/VIT-C/FOLIC ACID 1 TAB PO SCH (08:43)
[2018-02-09] MEDS: FERROUS GLUCONATE 324 MG TAB PO SCH ×2 (09:49→17:29)
--- NOTE | 2018-02-09 09:56 | NUR ---
BP DECREASED TO 101/71. SPO2 96%. HR 54. DR. PEDRO AWARE ABOUT BRADYCARDIA. NO ACUTE RESPIRATORY DISTRESS NOTED. WILL CONTINUE TO MONITOR.
--- NOTE | 2018-02-09 09:57 | NUR ---
PT AT BEDSIDE FOR PT EVALUATION.
[2018-02-09 12:00] VITALS: BP 171/78
[2018-02-09 12:49] LABS: FOLIC ACID > 20.00 ng/mL (>3.0)
--- NOTE | 2018-02-09 13:00 | NUR ---
RESTING IN BED. DENIES ANY CHEST PAIN, SOB. ASSISTED NEEDED. WILL CONTINUE TO MONITOR.
--- NOTE | 2018-02-09 15:47 | NUR ---
PT NOTED WITH HIGH BP 166/81. PT NOTED WITH NO URINATION SINCE MORNING. BLADDER SCAN DONE SHOWED [address] PEDRO MADE AWARE. WILL CONTINUE TO FOLLOW UP ORDER.
[2018-02-09 16:50] VITALS: BP 166/81
--- NOTE | 2018-02-09 17:33 | NUR ---
ADMINISTERED HYDRALAZINE ORDERED.
--- NOTE | 2018-02-09 18:45 | NUR ---
CALLED DIALYSIS CENTER SPOKE WITH [facility] NURSE NOTIFIED PT NEEDS DIALYSIS TOMORROW
--- NOTE | 2018-02-09 19:01 | NUR ---
NO CHANGE IN LOC. PT ON STABLE CONDITION.
--- NOTE | 2018-02-09 19:40 | NUR ---
ENDORSED TO COMPUTER SYSTEMS DESIGNER RN FOR CONTINUITY OF CARE. PT ON STABLE CONDITION.
--- NOTE | 2018-02-09 19:40 | NUR ---
RECEIVED BEDSIDE REPORT FROM LEW ANTONY, PT IN BED ON 2 L NC, AWAKE AND ALERT ABLE TO MAKE NEEDS KNOWN, IV IN RIGHT AC, 20 G, INFUSING NS AT 15 ML/HR, V/S TAKEN NOTED B/P 155/90 HR 70 WILL CONTINUE TO MONITOR, PT DENIES PAIN, HD ACCESS IN RIGHT UPPER CHEST. SCHEDULED TO RECEIVE HD TOMORROW. CALL LIGHT WITHIN REACH WILL CONTINUE TO MONITOR.
[2018-02-09 20:00] VITALS: BP 155/90
--- NOTE | 2018-02-09 21:30 | NUR ---
SPUTUM SAMPLE COLLECTED AND SENT TO LAB. PT AWARE OF NEEDED URINE SAMPLE.
[2018-02-09 22:19] LABS: FERRITIN 503 ng/mL (30 - 400); TRANSFERRIN 165 mg/dL (200 - 370)
--- NOTE | 2018-02-09 22:46 | NUR ---
B/P 203/93 MAP 125 HR 78. RAISED HOB TO 45 DEGREES, CALLED DR COOK. ORDER FOR VASOTEC 1.25 MG. WILL FOLLOW WITH MD ORDER AND REASSESS V/S.
[2018-02-10] VITALS (7 sets, daily range): BP systolic 155–204; BP diastolic 88–94
--- NOTE | 2018-02-10 00:46 | NUR ---
PT B/P 199/[address] COOK TO NOTIFY OF CONTINUED HIGH B/P. ORDER FOR HYDRALAZINE 10 MG TAB PO. WILL FOLLOW WITH MD ORDERS AND REASSESS V/S.
[2018-02-10] MEDS ORDERED: hydrALAZINE 10 MG TAB PO SCH ×2 (01:00→09:00)
--- NOTE | 2018-02-10 01:46 | NUR ---
B/P 183/[address] COOK OF CONTINUED HIGH B/P. ORDERS FOR CONTINUE TO MONITOR. WILL CONTINUE TO MONITOR.
--- NOTE | 2018-02-10 04:30 | NUR ---
PT RESTING IN BED NO SIGNS OF DISTRESS. WILL CONTINUE TO MONITOR.
[2018-02-10] MEDS: PIPER/TAZO 2.25GM/D5W PREMIX 50 ML IV SCH ×3 (04:44→20:58)
[2018-02-10] MEDS: ALBUTEROL SULFATE/IPRATROPIU 3 ML SOL IH SCH ×3 (07:23→19:42)
--- NOTE | 2018-02-10 07:30 | NUR ---
ENDORSED PT TO DAY SHIFT NURSE PT STABLE.
--- NOTE | 2018-02-10 07:30 | NUR ---
RECEIVED REPORT FROM REIMBURSEMENT AUDITOR RN. PATIENT IN STABLE CONDITION. AAO X4. NO COMPLAINTS OF PAIN OR DISCOMFORT. PT IS NORMALLY AMBULATORY WITH WALKER. AMBULATION NOT WITNESSED. HD ON IFAD-SGLAG-UILTWCKG. HD ACCESS ON RIGHT UPPER CHEST. ON 2L NC. FINE CRACKLES IN LOWER LOBES. RESTRICTED LEFT EXTREMITY. SCAR ON LATERAL RIGHT FOOT. IV SITE PATENT AND ASYMPTOMATIC. ALL SAFETY MEASURES IN PLACE, WILL CONTINUE TO MONITOR.
[2018-02-10 07:45] LABS: BASOPHILS % (AUTO) 0.5 % (0.0-2.0); EOSINOPHILS # (AUTO) 0.1 K/uL (0-0.4); EOSINOPHILS % (AUTO) 3.3 % (0.0-4.0); HEMATOCRIT 27.2 % (36-52); HEMOGLOBIN 9.2 g/dL (12.0-18.0); LYMPHOCYTES # (AUTO) 0.8 K/uL (2.0-11.5); LYMPHOCYTES % (AUTO) 17.5 % (20.5-51.1); MEAN CORPUSCULAR HEMOGLOBIN 29 pg (27-31); MEAN CORPUSCULAR HGB CONC 34 g/dL (33-37); MEAN CORPUSCULAR VOLUME 85.6 fL (80-94); MONOCYTES # (AUTO) 0.4 K/uL (0.8-1.0); MONOCYTES % (AUTO) 9.4 % (1.7-9.3); NEUTROPHILS # (AUTO) 3.1 K/uL (1.8-7.7); NEUTROPHILS % (AUTO) 69.3 % (42.2-75.2); PLATELET COUNT (AUTO) 112 K/uL (140-450); RED BLOOD CELL COUNT(AUTO) 3.17 MIL/uL (4.20-6.10); RED CELL DISTRIBUTION WIDTH 17.1 % (11.6-13.7); WHITE BLOOD COUNT (AUTO) 4.5 K/uL (4.8-10.8)
[2018-02-10 08:08] LABS: ANION GAP 14.3 (8-16); CARBON DIOXIDE 25.5 mmol/L (21-32); POTASSIUM 4.8 mmol/L (3.5-5.1)
[2018-02-10] MEDS: BLOOD GLUCOSE MONITORING 1 DEV DEV FS SCH ×4 (08:13→21:04)
[2018-02-10 08:18] LABS: MAGNESIUM 1.7 mg/dL (1.8-2.4); PHOSPHORUS 5.8 mg/dL (2.5-4.9)
[2018-02-10] MEDS: cloNIDine 0.1 MG TAB PO SCH ×3 (08:29→17:00)
[2018-02-10 08:31] LABS: CREATININE 6.9 mg/dL (0.7-1.3)
[2018-02-10] MEDS: amLODIPine 5 MG TAB PO SCH (08:31)
[2018-02-10] MEDS: VIT-B COMP/VIT-C/FOLIC ACID 1 TAB PO SCH (08:31)
[2018-02-10] MEDS: ATORVASTATIN 20 MG TAB PO SCH (08:31)
[2018-02-10] MEDS: DOCUSATE SODIUM 100 MG GELCAP PO SCH ×2 (08:32→20:58)
[2018-02-10] MEDS: LACTOBACILLUS RHAMNOSUS GG 1 EACH CAP PO SCH (08:32)
[2018-02-10] MEDS: CALCIUM ACETATE 667 MG TAB PO SCH ×3 (08:32→17:05)
[2018-02-10] MEDS: METOPROLOL 50 MG TAB PO SCH ×2 (08:32→20:59)
[2018-02-10] MEDS: FERROUS GLUCONATE 324 MG TAB PO SCH ×2 (08:40→17:04)
[2018-02-10] MEDS ORDERED: MAGNESIUM OXIDE 400 MG TAB PO SCH (08:45)
[2018-02-10] MEDS ORDERED: EPOETIN ALFA 10,000 UNITS/ML VIAL SUBQ SCH (09:00)
--- NOTE | 2018-02-10 10:25 | NUR ---
LAB CALLED REGARDING NEW SPUTUM SAMPLE NEEDED. PREVIOUS SPUTUM SAMPLE IS UNUSABLE. Addendum: 02/10/18 at 1935 by Carol Foreman Meng, RN CALLED RT TO OBTAIN SPUTUM SAMPLE.
[2018-02-10] MEDS ORDERED: MAGNESIUM OXIDE 400 MG TAB PO ONE (11:35)
[2018-02-10] MEDS: INSULIN LISPRO SLIDING SCALE 100 UNITS/ML VIAL SUBQ PRN ×2 (12:30→21:07)
[2018-02-10] MEDS: hydrALAZINE 25 MG TAB PO SCH ×3 (12:34→20:59)
--- NOTE | 2018-02-10 12:53 | NUR ---
Nurse Healthcare Manager Note: I met with patient at bedside to discuss MD's recommendation for short term senior living facility placement for physical therapy and abx iv. He stated he was at [facility] ([facility]) previously and does not want to return there. He requested to be transfer to a snf located his Melody's home in [place], [place] and requested I speak with Melody regarding this. I called and spoke with patient's Melody Rae . She stated she is aware patient does not want to be transfer to [facility] ([facility]) . She reported she would like a snf that is located in [place], [place] near her home. I informed her that there are three snfs located in [place], [place], [facility] , [facility] , and [facility] . I provided her with their addresses. She stated [facility] is the closest to her home and would like patient to be transfer there upon discharge, made aware, currently unavailable.
--- NOTE | 2018-02-10 13:49 | NUR ---
LABETALOL IVP GIVEN. CONTENT EDITOR WILL WATCH HEART MONITOR. WILL REASSESS PT PER PROTOCOL AND CONTINUE TO MONITOR.
[2018-02-10] MEDS ORDERED: LABETALOL 100 MG/20 ML VIAL IV SCH (13:50)
--- NOTE | 2018-02-10 13:50 | NUR ---
Dr. Acosta notified that pt was given Catapres and Apresoline PO an hour ago. Dr. Acosta stated to wait for another hour and check pt's BP and HR before giving Labetol IVP. Elmo assigned notified.
--- NOTE | 2018-02-10 16:20 | NUR ---
Carpet Mechanic Note: Per , patient's Melody changed her mind and now would like patient to be transfer to [facility] ([facility]). I faxed inquiry to [facility]. Per admission coordinator Hema from [facility], patient has been accepted and has been assign to room 208c, accepting physician is , informed him we are still in process of determining which dialysis center patient will go to. On 02/08/18 I was informed by LEW Go at [facility] patient was one of their "visitor patients" and 02/08/18 was his last scheduled day of dialysis at their facility. [facility] [phone] and spoke with Ciera, she stated I needed to contact [facility] and inquire if patient could continue to receive dialysis treatment at that facility. I called and spoke with Faclity Emergency Department Coordinator Alejandra from [facility] , she stated she is unsure if they can accommodate patient at their facility because they were recently referred a few new patients. Alejandra referred me to speak with their Ssas Developer Shania . I called and spoke with Ssas Developer Shania, informed her of my conversation with Alejandra. I explained to her that we are anticipating for patient to be discharge tomorrow to a snf located in [place], [place] and requested assistance with finding a dialysis center for patient. She requested I fax patients history and physical, labs, list of medication, chest x-ray, and nephrologists notes. I faxed info, fax number .
--- NOTE | 2018-02-10 16:30 | NUR ---
DIALYSIS NURSE AT BEDSIDE MONITORING PT. NO COMPLAINTS OF PAIN OR DISCOMFORT. BP ELEVATED.
--- NOTE | 2018-02-10 16:42 | NUR ---
Rack Production Worker Note: I received a call from Technician Preventative Medicine Shania at [facility] . She confirmed she received information I faxed her. She stated she will send inquiry to [facility] . She told me [facility] is closed on Tuesdays and , therefore, inquiry will be reviewed tomorrow 02/11/18.
--- NOTE | 2018-02-10 17:12 | NUR ---
PER DIALYSIS NURSE AT BEDSIDE, ADMINISTER HYDRALAZINE TO PT DURING DIALYSIS BECAUSE OF SUSTAINED ELEVATED BP. Addendum: 02/10/18 at 1714 by Carol Foreman Meng, RN BP 191/91, HR 67.
--- NOTE | 2018-02-10 17:42 | NUR ---
LAB CALLED FOR CLARIFICATION ON PERIPHERAL SMEAR ORDER. NOTIFIED DR. MCCARTHY. DR. SWENSON TO CALL LAB DIRECTLY.
--- NOTE | 2018-02-10 18:30 | NUR ---
DIALYSIS COMPLETE. 2600 ML REMOVED. BP STILL ELEVATED IN THE 190S. WILL ENDORSE OT EXTERNAL GRINDER TENDER RN.
--- NOTE | 2018-02-10 19:00 | NUR ---
MEDICATION LIST NOTED VIA PHONE CALL FROM . LIST GIVEN TO
--- NOTE | 2018-02-10 19:15 | NUR ---
ENDORSED PLAN OF CARE TO ACTIVATED SLUDGE OPERATOR RN. PT IN STABLE CONDITION. ACTIVATED SLUDGE OPERATOR RN AWARE OF SUSTAINED HIGH BLOOD PRESSURE.
--- NOTE | 2018-02-10 19:20 | NUR ---
NOTIFIED RESPIRATORY THERAPIST OF THE NEED FOR SPUTUM SAMPLE. Addendum: 02/10/18 at 1935 by Carol Foreman Meng, RN WRONG TIME
[2018-02-11 00:21] VITALS: BP 203/98
[2018-02-11] MEDS ORDERED: ENALAPRILAT 2.5 MG/2 ML VIAL IVP ONE ×4 (00:25→03:11)
[2018-02-11 02:23] VITALS: BP 199/98
[2018-02-11] MEDS: NACL 0.9% 1,000 ML IV SCH (02:34)
--- NOTE | 2018-02-11 04:00 | NUR ---
PT. BP STILL HIGH AND ADMINISTERED VASOTEC 1.25 MG IVP X2 IN THIS SHIFT. PT. WAKES UP EASILY WHEN TOUCHED OR CALLED BY NAME. A/O X 4. ROM X 4.
[2018-02-11 04:20] VITALS: BP 192/97
[2018-02-11] MEDS: PIPER/TAZO 2.25GM/D5W PREMIX 50 ML IV SCH ×2 (05:19→13:05)
[2018-02-11] MEDS: BLOOD GLUCOSE MONITORING 1 DEV DEV FS SCH ×2 (06:07→11:56)
[2018-02-11] MEDS: INSULIN LISPRO SLIDING SCALE 100 UNITS/ML VIAL SUBQ PRN ×2 (06:09→13:12)
--- NOTE | 2018-02-11 06:58 | NUR ---
SLEEPING AT THIS TIME. NO COMPLAINTS DONE.
[2018-02-11] MEDS ORDERED: NITROGLYCERIN 0.4 MG TAB SL SCH (07:00)
--- NOTE | 2018-02-11 07:29 | NUR ---
ENDORSED TO THE NEXT RN FOR CONTINUITY OF CARE. PT. AWAKE AT THIS TIME. NO COMPLAINTS DONE.
--- NOTE | 2018-02-11 07:30 | NUR ---
RECEIVED REPORT FROM PAYROLL MANAGER RN. PATIENT IS AAOX4, HAS NASAL CANNULA ON AT 2L. NO SIGNS AND SYMPTOMS OF ACUTE DISTRESS NOTED AT THIS TIME. HAS IV TO THE RIGHT AC 20G, INFUSING NS AT 15 ML/HR. SITE IS CLEAN, DRY, PATENT AND INTACT. HAS RIGHT SUBCLAVICLE TUNNELED DIALYSIS CATHETER. PATIENT HAS A WHEELCHAIR AND WALKER. BED ALARM ON. DISCUSSED PLAN OF CARE WITH PATIENT AND HE VERBALIZED UNDERSTANDING. BED IN LOWEST POSITION, SIDE RAILS UP X2, CALL LIGHT WITHIN REACH. WILL CONTINUE TO MONITOR.
--- NOTE | 2018-02-11 07:52 | NUR ---
PT STATES HE WANTS TO EAT AND DOES NOT WANT BREATHING TX AT THIS TIME. PT NOT SOB AND NOT IN RESPIRATORY DISTRESS WILL CHECK BACK AT A LATER TIME FOR ADMINISTRATION OF BREATHING TX. NURSE BEDSIDE AND AWARE.
[2018-02-11 07:58] LABS: BASOPHILS % (AUTO) 0.5 % (0.0-2.0); EOSINOPHILS # (AUTO) 0.1 K/uL (0-0.4); EOSINOPHILS % (AUTO) 4.3 % (0.0-4.0); HEMATOCRIT 28.7 % (36-52); LYMPHOCYTES # (AUTO) 0.6 K/uL (2.0-11.5); LYMPHOCYTES % (AUTO) 17.5 % (20.5-51.1); MEAN CORPUSCULAR HEMOGLOBIN 29 pg (27-31); MEAN CORPUSCULAR HGB CONC 35 g/dL (33-37); MEAN CORPUSCULAR VOLUME 84.4 fL (80-94); MONOCYTES # (AUTO) 0.3 K/uL (0.8-1.0); MONOCYTES % (AUTO) 8.4 % (1.7-9.3); NEUTROPHILS # (AUTO) 2.3 K/uL (1.8-7.7); NEUTROPHILS % (AUTO) 69.3 % (42.2-75.2); PLATELET COUNT (AUTO) 126 K/uL (140-450); RED CELL DISTRIBUTION WIDTH 16.7 % (11.6-13.7); WHITE BLOOD COUNT (AUTO) 3.3 K/uL (4.8-10.8)
[2018-02-11 08:00] VITALS: BP 181/88
[2018-02-11] MEDS: ALBUTEROL SULFATE/IPRATROPIU 3 ML SOL IH SCH ×2 (08:08→13:24)
[2018-02-11 08:17] LABS: ANION GAP 10.3 (8-16); CARBON DIOXIDE 28.5 mmol/L (21-32); POTASSIUM 3.8 mmol/L (3.5-5.1)
[2018-02-11 08:23] LABS: MAGNESIUM 1.8 mg/dL (1.8-2.4); PHOSPHORUS 4.6 mg/dL (2.5-4.9)
[2018-02-11] MEDS: FERROUS GLUCONATE 324 MG TAB PO SCH (08:28)
[2018-02-11] MEDS: METOPROLOL 50 MG TAB PO SCH (08:30)
[2018-02-11] MEDS: CALCIUM ACETATE 667 MG TAB PO SCH ×2 (08:30→13:05)
[2018-02-11 08:31] LABS: CREATININE 4.7 mg/dL (0.7-1.3)
[2018-02-11] MEDS: VIT-B COMP/VIT-C/FOLIC ACID 1 TAB PO SCH (08:31)
[2018-02-11] MEDS: cloNIDine 0.1 MG TAB PO SCH ×2 (08:31→13:06)
[2018-02-11] MEDS: DOCUSATE SODIUM 100 MG GELCAP PO SCH (08:32)
[2018-02-11] MEDS: ATORVASTATIN 20 MG TAB PO SCH (08:32)
[2018-02-11] MEDS: amLODIPine 5 MG TAB PO SCH (08:32)
[2018-02-11] MEDS: hydrALAZINE 25 MG TAB PO SCH ×2 (08:33→13:05)
[2018-02-11] MEDS: ISOSORBIDE DINITRATE 10 MG TAB PO SCH ×2 (08:33→13:06)
[2018-02-11] MEDS: LACTOBACILLUS RHAMNOSUS GG 1 EACH CAP PO SCH (08:33)
[2018-02-11] MEDS ORDERED: PROC10I SUBQ (09:48)
[2018-02-11] MEDS ORDERED: HUMSLIDE SUBQ (09:48)
[2018-02-11] MEDS ORDERED: HYDR-4420 PO (09:48)
[2018-02-11] MEDS ORDERED: ISOS10TA9 PO (09:48)
[2018-02-11] MEDS ORDERED: FERR324T11 PO (09:48)
[2018-02-11] MEDS ORDERED: NEP PO (09:48)
[2018-02-11] MEDS ORDERED: METO50TA99 PO (09:48)
[2018-02-11] MEDS ORDERED: CLON0.1T42 PO (09:48)
--- NOTE | 2018-02-11 11:52 | NUR ---
Senior Information Security Analyst Note: Per Channel Marketing Program Manager Shania at [facility] for patient to go to a new dialysis center a hepatitis panel is needed. She stated prior to patient receiving dialysis treatment at [facility] , he was receiving dialysis treatment at [facility] . Shania told me that patient would not need hepatitis panel if he was to return to [facility]. I called and spoke with Tunnel Heading Supervisor Cy at [facility], she stated patients chair time is still available and they can accommodate patient on his regular dialysis treatment schedule, Tuesdays, , and Saturdays at 2:45pm. I called and spoke with Hema at [facility] , I provided him with patients outpatient dialysis schedule at [facility], phone number, and address. Per Hema, he will schedule patients transportation to [facility]. Hema is aware patient will be transfer to their facility today.
[2018-02-11 12:00] VITALS: BP 188/90
--- NOTE | 2018-02-11 12:03 | NUR ---
CM NOTE PATIENT HAS [facility]. PER PHIL BUENROSTRO OF [facility] PH# [phone], FOR [facility] AUTH# [id number]. PER IRINA OF [facility] PH# [phone], PATIENT WILL BE P[facility] AT 1530 TIME [facility]. LUCY HACKETT AWARE.
[2018-02-11] MEDS ORDERED: ACET-9529 PO (12:23)
[2018-02-11] MEDS ORDERED: DOCU-299 PO (12:34)
--- NOTE | 2018-02-11 14:14 | NUR ---
SPOKE WITH PATIENTS ISABELA TO INFORM HER THAT PATIENT IS GOING TO [facility] AT ABOUT 1530 TO RO[address]. SHE AGREED.
--- NOTE | 2018-02-11 14:50 | NUR ---
PATIENTS BLOOD PRESSURE IS 146/70, HR 72. HAS NO SIGNS AND SYMPTOMS OF ACUTE DISTRESS NOTED AT THIS TIME. WILL CONTINUE TO MONITOR.
[2018-02-11 15:08] VITALS: BP 146/70
[2018-02-11] MEDS ORDERED: LABETALOL 100 MG/20 ML VIAL IV SCH (15:30)
--- NOTE | 2018-02-11 15:40 | NUR ---
PATIENT HAS DISCHARGE ORDER IN PLACE. [facility] HERE TO TRANSFER PATIENT TO [facility]. GAVE PATIENT INSTRUCTIONS. ALL BELONGINGS ARE WITH THE PATIENT. HE IS IN STABLE CONDITION AT THIS TIME. WHEELCHAIR, AND WALKER ARE GOING WITH HIM WELL.
== END 2018-02-11 15:40 | DRG 871 ==
LOC: MED 00:20 → MTU 02:46 → EDBD 02:46
PROVIDERS: ADMIT General Practice; ATTEND General Practice
PROC: 5A1D70Z Performance of Urinary Filtration, Intermittent, Less than 6 Hours Per Day (ICD-10-PCS; principal; 2018-02-08)
PROC: 5A1D70Z Performance of Urinary Filtration, Intermittent, Less than 6 Hours Per Day (ICD-10-PCS; 2018-02-10)
DX: A41.9 Sepsis, unspecified organism (principal); J69.0 Pneumonitis due to inhalation of food and vomit; N17.0 Acute kidney failure with tubular necrosis; N18.6 End stage renal disease; J96.01 Acute respiratory failure with hypoxia; I50.43 Acute on chronic combined systolic (congestive) and diastolic (congestive) heart failure; I13.2 Hypertensive heart and chronic kidney disease with heart failure and with stage 5 chronic kidney disease, or end stage renal disease; D68.59 Other primary thrombophilia; E87.5 Hyperkalemia; E11.65 Type 2 diabetes mellitus with hyperglycemia; E78.5 Hyperlipidemia, unspecified; E11.22 Type 2 diabetes mellitus with diabetic chronic kidney disease; E11.40 Type 2 diabetes mellitus with diabetic neuropathy, unspecified; E11.51 Type 2 diabetes mellitus with diabetic peripheral angiopathy without gangrene; I16.0 Hypertensive urgency; E11.69 Type 2 diabetes mellitus with other specified complication; Z82.3 Family history of stroke; D63.1 Anemia in chronic kidney disease; E11.319 Type 2 diabetes mellitus with unspecified diabetic retinopathy without macular edema; E78.00 Pure hypercholesterolemia, unspecified; E83.42 Hypomagnesemia; E83.39 Other disorders of phosphorus metabolism; I07.1 Rheumatic tricuspid insufficiency; I27.21 Secondary pulmonary arterial hypertension; Z99.2 Dependence on renal dialysis; Z79.899 Other long term (current) drug therapy; Z95.5 Presence of coronary angioplasty implant and graft; Z83.3 Family history of diabetes mellitus; E11.21 Type 2 diabetes mellitus with diabetic nephropathy
CPT/HCPCS: 36415; 36600; 71045; 80048; 80053; 82150; 82550; 82607; 82728; 82746; 82803; 82948; 83036; 83540; 83605; 83690; 83735; 83880; 84100; 84439; 84443; 84484; 85025; 85045; 85610; 85730; 87040; 87081; 87205; 93005; 94640; 96365; 96375; 97535; 99291; J0885; J1644; J1815; J1885; J1940; J2543; J3490; J7030; J7620; Q0092